=== PATIENT | male | born 1950 | race Caucasian/White ===

== ENCOUNTER → 2020-03-18 09:13 | Outpatient (BNVA) | payer MEDICARE, SELFPAY | PROVIDERS: PCP Family Medicine; Visit Provider Internal Medicine | DX: Z01.810 Encounter for preprocedural cardiovascular examination (principal); I48.0 Paroxysmal atrial fibrillation; I45.10 Unspecified right bundle-branch block; I77.810 Thoracic aortic ectasia | CPT/HCPCS: 93005; 99212 ==

== ENCOUNTER 2020-05-20 13:02 | Outpatient (REF) | payer MEDICARE, SELFPAY ==
[2020-05-20 14:39] LABS: MANUAL DIFF FLAG NO
[2020-05-20 14:45] LABS: Basophils Percent Auto 0.2 % (0-2); Eosinophils Absolute Auto 0.2 X10*3/uL (0.0-0.4); Eosinophils Percent Auto 3.1 % (0-4); Hematocrit 34.5 % (42-52); Hemoglobin 11.4 g/dl (14.0-18.0); Imm Gran Abs Auto 0.01 X10*3/uL (0.00-0.03); Imm Gran Pct Auto 0.2 % (0.0-0.4); Lymphocytes Absolute Auto 1.1 X10*3/uL (1.2-4.9); Lymphocytes Percent Auto 21.4 % (20-40); Mean Corpuscular Volume 84.8 fL (80-98); Mean Platelet Volume 8.8 fL (9.4-12.4); Monocytes Absolute Auto 0.4 X10*3/uL (0.1-1.2); Monocytes Percent Auto 7.8 % (2-11); Neutrophils Absolute Auto 3.3 X10*3/uL (2.0-8.3); Neutrophils Percent Auto 67.3 % (45-73); Platelet Count 370 X10*3/uL (160-400); Red Blood Count 4.07 X10*6/uL (4.60-5.80); Red Cell Distribution Width 11.9 % (11.0-16.0); White Blood Count 4.9 X10*3/uL (4.8-10.8)
[2020-05-20 15:16] LABS: Anion Gap 12 (12-20); Blood Urea Nitrogen 13 mg/dL (9-16); Carbon Dioxide 31 mmol/L (22-29); Chloride 99 mmol/L (96-108); Estimated Glomerular Filt Rate > 60; Potassium 4.4 mmol/L (3.3-5.1); Sodium 138 mmol/L (135-145)
== END 2020-05-20 13:03 | disposition home or self-care (01) ==
LOC: HO.LAB 13:02
PROVIDERS: Absent Provider Family Medicine; PCP Family Medicine; Visit Provider Internal Medicine
DX: I10 Essential (primary) hypertension (principal); D64.9 Anemia, unspecified; I48.91 Unspecified atrial fibrillation; I45.10 Unspecified right bundle-branch block; I48.0 Paroxysmal atrial fibrillation; I77.810 Thoracic aortic ectasia; I95.9 Hypotension, unspecified; Z79.899 Other long term (current) drug therapy
CPT/HCPCS: 36415; 80051; 82565; 84520; 85025; 93005; 99212

== ENCOUNTER → 2020-08-24 12:36 | Outpatient (BNVA) | payer MEDICARE, SELFPAY | PROVIDERS: PCP Family Medicine; Visit Provider Internal Medicine | DX: I48.0 Paroxysmal atrial fibrillation (principal); I45.10 Unspecified right bundle-branch block; I77.810 Thoracic aortic ectasia | CPT/HCPCS: 99212 ==

== ENCOUNTER 2020-11-01 12:51 | Outpatient (REF) | payer MEDICARE, SELFPAY ==
[2020-11-01 13:26] LABS: MANUAL DIFF FLAG NO
[2020-11-01 13:31] LABS: Basophils Percent Auto 0.4 % (0-2); Eosinophils Absolute Auto 0.2 X10*3/uL (0.0-0.4); Eosinophils Percent Auto 3.8 % (0-4); Hemoglobin 12.4 g/dl (14.0-18.0); Imm Gran Abs Auto 0.01 X10*3/uL (0.00-0.03); Imm Gran Pct Auto 0.2 % (0.0-0.4); Lymphocytes Absolute Auto 1.3 X10*3/uL (1.2-4.9); Lymphocytes Percent Auto 26.4 % (20-40); Mean Corpuscular HGB Conc 31.8 g/dl (31.0-36.0); Mean Corpuscular Hemoglobin 24.8 pg (27.0-33.0); Mean Platelet Volume 9.3 fL (9.4-12.4); Monocytes Absolute Auto 0.4 X10*3/uL (0.1-1.2); Neutrophils Absolute Auto 3.1 X10*3/uL (2.0-8.3); Neutrophils Percent Auto 61.2 % (45-73); Platelet Count 290 X10*3/uL (160-400); Red Cell Distribution Width 15.9 % (11.0-16.0)
[2020-11-01 13:58] LABS: Alanine Aminotransferase 14 U/L (0-40); Anion Gap 12 (12-20); Aspartate Amino Transferase 13 U/L (5-37); Blood Urea Nitrogen 21 mg/dL (9-16); Carbon Dioxide 26 mmol/L (22-29); Chloride 105 mmol/L (96-108); Estimated Glomerular Filt Rate > 60; Potassium 4.6 mmol/L (3.3-5.1); Sodium 138 mmol/L (135-145)
== END 2020-11-01 12:52 | disposition home or self-care (01) ==
LOC: HO.10HDL 12:51
PROVIDERS: PCP Family Medicine; Visit Provider Family Medicine
DX: I10 Essential (primary) hypertension (principal); K75.81 Nonalcoholic steatohepatitis (NASH); D72.819 Decreased white blood cell count, unspecified
CPT/HCPCS: 36415; 80051; 82565; 84450; 84460; 84520; 85025

== ENCOUNTER → 2021-02-16 12:32 | Outpatient (BNVA) | payer MEDICARE, SELFPAY | PROVIDERS: PCP Family Medicine; Visit Provider Internal Medicine | DX: I48.0 Paroxysmal atrial fibrillation (principal); I45.10 Unspecified right bundle-branch block; I77.810 Thoracic aortic ectasia | CPT/HCPCS: 99212 ==

== ENCOUNTER 2021-07-06 12:13 | Outpatient (REF) | payer MEDICARE, SELFPAY ==
[2021-07-06 13:11] LABS: Anion Gap 13 (12-20); Blood Urea Nitrogen 16 mg/dL (9-16); Carbon Dioxide 25 mmol/L (22-29); Chloride 103 mmol/L (96-108); Estimated Glomerular Filt Rate > 60; Potassium 4.1 mmol/L (3.3-5.1); Sodium 137 mmol/L (135-145)
== END 2021-07-06 12:14 | disposition home or self-care (01) ==
LOC: HO.10HDL 12:13
PROVIDERS: Visit Provider Family Medicine
DX: I10 Essential (primary) hypertension (principal)
CPT/HCPCS: 36415; 80051; 82565; 84520

== ENCOUNTER → 2021-08-24 14:07 | Outpatient (BNVA) | payer MEDICARE, SELFPAY | PROVIDERS: PCP Family Medicine; Referring Provider Family Medicine; Visit Provider Internal Medicine | DX: I48.0 Paroxysmal atrial fibrillation (principal); I45.10 Unspecified right bundle-branch block; I77.810 Thoracic aortic ectasia; Z79.01 Long term (current) use of anticoagulants; Z79.899 Other long term (current) drug therapy | CPT/HCPCS: 93005; 99212 ==

== ENCOUNTER 2022-02-23 09:42 | Outpatient (REF) | payer MEDICARE, SELFPAY ==
[2022-02-23 10:46] LABS: MANUAL DIFF FLAG NO
[2022-02-23 10:51] LABS: Basophils Percent Auto 0.3 % (0-2); Eosinophils Absolute Auto 0.2 X10*3/uL (0.0-0.4); Eosinophils Percent Auto 4.7 % (0-4); Hematocrit 36.9 % (42.0-52.0); Lymphocytes Absolute Auto 1.2 X10*3/uL (1.2-4.9); Lymphocytes Percent Auto 33.5 % (20-40); Mean Corpuscular HGB Conc 32.5 g/dl (31.0-36.0); Mean Corpuscular Hemoglobin 25.8 pg (27.0-33.0); Mean Corpuscular Volume 79.4 fL (80.0-98.0); Mean Platelet Volume 9.2 fL (9.4-12.4); Monocytes Absolute Auto 0.3 X10*3/uL (0.1-1.2); Neutrophils Absolute Auto 1.8 x10*3/uL (2.0-8.3); Neutrophils Percent Auto 52.5 % (45-73); Platelet Count 250 X10*3/uL (160-400); Red Blood Count 4.65 X10*6/uL (4.60-5.80); Red Cell Distribution Width 15.3 % (11.0-16.0); White Blood Count 3.4 X10*3/uL (4.8-10.8)
[2022-02-23 11:35] LABS: Alanine Aminotransferase 17 U/L (0-40); Albumin Level 4.1 g/dL (3.5-5.0); Alkaline Phosphatase 92 U/L (39-117); Anion Gap 11 (12-20); Aspartate Amino Transferase 14 U/L (5-37); Bilirubin Direct < 0.2 mg/dL (0.0-0.5); Blood Urea Nitrogen 18 mg/dL (9-16); Carbon Dioxide 27 mmol/L (22-29); Chloride 104 mmol/L (96-108); Estimated Glomerular Filt Rate > 60; Potassium 3.8 mmol/L (3.3-5.1); Sodium 138 mmol/L (135-145); Total Protein 6.7 g/dL (6.5-8.0)
[2022-02-23 11:49] LABS: Bilirubin Total 0.4 mg/dL (0.0-1.0)
[2022-02-23 16:31] LABS: Immature Retic Fraction 8.9 % (2.3-13.4); Retic HGB Equivalent 30.2 pg (30.0-35.0); Reticulocyte Percent 0.9 % (0.5-1.8); Reticulocytes Absolute 0.041 X10*6/uL (0.026-0.095)
[2022-02-23 16:59] LABS: Ferritin 21 ng/mL (20-250); Iron 46 mcg/dL (45-160); Percent Iron Saturation 12 % (15-50); Total Iron Binding Capacity 369 mcg/dL (228-428); Unsaturated Iron Binding 323 ug/dL
[2022-02-23 17:12] LABS: Folate 18.4 ng/mL (> or = 4.0); Vitamin B12 1398 pg/mL (200-900)
[2022-02-24 07:54] LABS: MANUAL DIFF FLAG NO
[2022-02-24 08:02] LABS: Basophils Percent Auto 0.5 % (0-2); Eosinophils Absolute Auto 0.2 X10*3/uL (0.0-0.4); Eosinophils Percent Auto 5.6 % (0-4); Hematocrit 39.3 % (42.0-52.0); Hemoglobin 12.3 g/dl (14.0-18.0); Imm Gran Abs Auto 0.01 X10*3/uL (0.00-0.03); Imm Gran Pct Auto 0.3 % (0.0-0.4); Lymphocytes Absolute Auto 1.3 X10*3/uL (1.2-4.9); Lymphocytes Percent Auto 33.5 % (20-40); Mean Corpuscular HGB Conc 31.3 g/dl (31.0-36.0); Mean Corpuscular Hemoglobin 25.7 pg (27.0-33.0); Mean Corpuscular Volume 82.2 fL (80.0-98.0); Mean Platelet Volume 9.5 fL (9.4-12.4); Monocytes Absolute Auto 0.4 X10*3/uL (0.1-1.2); Monocytes Percent Auto 9.7 % (2-11); Neutrophils Absolute Auto 1.9 x10*3/uL (2.0-8.3); Neutrophils Percent Auto 50.4 % (45-73); Platelet Count 267 X10*3/uL (160-400); Red Blood Count 4.78 X10*6/uL (4.60-5.80); Red Cell Distribution Width 15.5 % (11.0-16.0); White Blood Count 3.7 X10*3/uL (4.8-10.8)
== END 2022-02-23 09:43 | disposition home or self-care (01) ==
LOC: HO.10HDL 09:42
PROVIDERS: Absent Provider Internal Medicine; PCP Family Medicine; Visit Provider Family Medicine
DX: D64.9 Anemia, unspecified (principal); I10 Essential (primary) hypertension; K75.81 Nonalcoholic steatohepatitis (NASH); D72.819 Decreased white blood cell count, unspecified
CPT/HCPCS: 36415; 80051; 80076; 82565; 82607; 82728; 82746; 83540; 84520; 85025; 85045

== ENCOUNTER 2022-02-25 19:03 | Emergency (ER) | payer MEDICARE, SELFPAY ==
--- NOTE | ~2022-02-25 | CT_ITS ---
EXAMINATION: CT ABDOMEN AND PELVIS WITHOUT CONTRAST CLINICAL INFORMATION: Left flank pain. COMPARISON: Abdominal ultrasound 07/27/2014. CT abdomen 01/22/2009. TECHNIQUE: Multidetector volumetric imaging was performed from the superior aspect of the liver through the pubic symphysis. Sagittal and coronal reformatted images were obtained on the technologist's workstation. This CT examination was performed using dose optimization techniques as appropriate, variously including the following: *Automated exposure control *Adjustment of mA and/or kV according to patient size (this includes techniques or standardized protocols for targeted exams where dose is matched to indication/reason for exam; i.e. extremities or head) *Use of iterative reconstruction technique DLP: 754 mGy-cm FINDINGS: LUNG BASES: No focal consolidation or pleural effusion. LIVER, GALLBLADDER, AND BILIARY TREE: Simple water density cysts in the right hepatic lobe, and a too small to characterize hypodensity in the left hepatic lobe (3:19) that correlated with a previously seen cyst in 2008, now decreased in size. No new liver lesions. Normal gallbladder. No biliary ductal dilatation. PANCREAS: Fatty infiltration. No peripancreatic free fluid or fat stranding. SPLEEN: Limited noncontrast examination, unremarkable. ADRENAL GLANDS: Unchanged asymmetric fullness of the left adrenal gland without discrete nodularity. KIDNEYS AND URETERS: Limited noncontrast examination. No evidence of nephrolithiasis or hydronephrosis. No significant perinephric fat stranding. BLADDER: Unremarkable. GASTROINTESTINAL TRACT: The stomach and the small bowel are nondilated. The appendix is not definitely visualized, however there are no regional inflammatory changes to suspect acute appendicitis. There is extensive colonic diverticulosis without significant pericolonic inflammatory changes. No evidence of bowel obstruction. ABDOMINAL WALL: Bilateral fat-containing small inguinal hernias. There is fluid and mild soft tissue stranding in the posterior lower back, possibly representing dependent anasarca and decubitus changes. LYMPH NODES: Evaluation of the retroperitoneum is somewhat limited due to streak artifacts generated by extensive thoracolumbar hardware. No bulky lymphadenopathy is noted. VASCULAR: Limited noncontrast examination with scattered atherosclerotic disease. The abdominal aorta is of normal diameter. PELVIC VISCERA: Enlarged prostate measuring 6 cm transversely and 4.7 cm anterior to posterior. OSSEOUS STRUCTURES: Extensive hardware of the thoracolumbar spine and sacrum. Vertebroplasty cement at L1 and T12. No acute or aggressive appearing osseous abnormalities. CT/CT abdomen pelvis wo IV con IMPRESSION: 1. No evidence of nephrolithiasis or hydronephrosis. 2. Diverticulosis but no evidence of acute diverticulitis. 3. Prostatomegaly. 4. Fat stranding and fluid layering dependently in the posterior lower back, correlate with physical examination.
--- NOTE | ~2022-02-25 | XR_ITS ---
EXAMINATION: CHEST 2 VIEWS CLINICAL INFORMATION: ABD PAIN RADIATING TO BACK . COMPARISON: 07/30/2014. TECHNIQUE: PA and lateral views of the chest obtained. FINDINGS: The lungs are well expanded. No focal infiltrate, effusion, edema, or pneumothorax. Cardiac and mediastinal silhouettes are within normal limits for technique. No acute bony abnormality seen with extensive spinal pedicle screw and nga fixation throughout much of the thoracic and visualized lumbar spine. Hardware grossly appears to be intact. I do not appreciate any acute rib fractures XR/XR chest 2V IMPRESSION: Chronic appearing and postoperative changes but no acute superimposed airspace disease.
[2022-02-25 19:19] VITALS: BP 151/93; PULSE 77; RESP 18; TEMP 36.3; O2SAT 96; BMI 29.5
--- NOTE | 2022-02-25 19:21 | ECG_ITS ---
Test Reason : ABD PAIN Blood Pressure : / mmHG Vent. Rate : 061 BPM Atrial Rate : 061 BPM P-R Int : 168 ms QRS Dur : 144 ms QT Int : 448 ms P-R-T Axes : 041 -21 007 degrees QTc Int : 450 ms Normal sinus rhythm Right bundle branch block Abnormal ECG When compared with ECG of 30-JUL-2014 12:15, Vent. rate has decreased BY 42 BPM QT has shortened Referred By: Elida Pool Electronically Signed By:NAVNEET HANDLEY
--- NOTE | 2022-02-25 19:21 | ED.ABDPAIN ---
HPI - Abdominal Pain General Chief Complaint: Abdominal Pain <ZACHARY Pope - Last Filed: 02/25/22 19:27> Stated Complaint: Abdominal/Back Pain <ZACHARY Pope - Last Filed: 02/25/22 19:27> Time Seen by Provider: 02/26/22 04:44 <ZACHARY Pope - Last Filed: 02/25/22 19:27> Source: patient <Karen Schreiber MD - Last Filed: 02/26/22 04:58> Mode of arrival: ambulatory <Karen Schreiber MD - Last Filed: 02/26/22 04:58> Limitations: no limitations <Karen Schreiber MD - Last Filed: 02/26/22 04:58> History of Present Illness HPI narrative: Patient comes to emergency room complaining of 3 days of abdominal pain. Patient states that his abdomen started hurting a few hours after lifting multiple times of very heavy, rash sore. Patient denies nausea vomiting or diarrhea. No constipation although he takes oxycodone for chronic back pain. Patient denies fever chills. <Karen Schreiber MD - Last Filed: 02/26/22 04:58> Related Data Home Medications: Home Medications Medication Instructions Recorded Confirmed gabapentin 600 mg tablet See Rx Instructions PO .COMPLEX 03/18/20 08/24/21 lansoprazole 30 mg capsule,delayed 30 mg PO DAILY 03/18/20 08/24/21 release multivitamin 1 tab PO DAILY 03/18/20 08/24/21 omega-3 fatty acids 1,000 mg 1,000 mg PO DAILY 03/18/20 08/24/21 capsule (Fish Oil Concentrate) tamsulosin 0.4 mg capsule 0.4 mg PO BEDTIME 03/18/20 08/24/21 oxycodone 5 mg tablet mg PO 08/24/21 08/24/21 Previous Rx's Medication Instructions Recorded diltiazem HCl 240 mg 240 mg PO DAILY #90 caps 08/26/21 capsule,extended release 24 hr apixaban 5 mg tablet (Eliquis) 5 mg PO BID #60 tabs 11/24/21 <ZACHARY Pope - Last Filed: 02/25/22 19:27> Allergies/Adverse Reactions: Allergies Allergy/AdvReac Type Severity Reaction Status Date / Time almond Allergy Mild THROAT Verified 08/24/21 14:14 ITCHING sertraline AdvReac Severe unresponsiv Verified 08/24/21 14:14 e <ZACHARY Pope - Last Filed: 02/25/22 19:27> Review of Systems Review of Systems Constitutional : No Weight loss, No Fever, No Chills, No Night Sweats, No Fatigue, No Malaise ENT/Mouth : No Hearing loss, No Ear Pain, No Nasal Congestion, No Sinus Pain, No Hoarseness, No sore throat, No Rhinorrhea, No Swallowing Difficulty Eyes: No Eye Pain, No Swelling, No Redness, No Foreign Body, No Discharge, No Vision Changes Cardiovascular : No Chest Pain, No SOB, No Dyspnea on Exertion, No Orthopnea, No Edema, No Palpitations Respiratory : No Cough, No Sputum, No Wheezing, No Smoke Exposure, No Dyspnea Gastrointestinal : No Nausea, No Vomiting, No Diarrhea, No Constipation, complaining abdominal pain, bilateral lower quadrants Genitourinary : no irregular bleeding, No Dysuria, No Urinary Frequency, No Hematuria, No Urinary Incontinence, No Urgency, No Flank Pain, No Urinary Flow Changes, No Hesitancy Musculoskeletal : No joint pain, No Myalgias, No Joint Swelling Skin : No Skin Lesions, No rash Neuro : No Weakness, No Numbness, No Paresthesias, No Loss of Consciousness, No Dizziness, No Headache Psych : No Anxiety/Panic, No Depression, No SI/HI/AH/VH, No Social Issues, Heme/Lymph: No Bruising, No Bleeding,No Lymphadenopathy Endocrine : No Polyuria, No Polydipsia, No Temperature Intolerance <Karen Schreiber MD - Last Filed: 02/26/22 04:58> [facility] Past Medical History Medical History: Medical History Arterial hypotension Mild ascending aorta dilatation Paroxysmal atrial fibrillation Right bundle branch block <ZACHARY Pope - Last Filed: 02/25/22 19:27> Surgical History: Surgical History History of cardiac catheterization (~09/23/14) History of spinal fusion (~04/14/20) <ZACHARY Pope - Last Filed: 02/25/22 19:27> Family History Family History: Family History Father Pancreatic cancer Mother Alzheimer disease <ZACHARY Pope - Last Filed: 02/25/22 19:27> Social History Social History: Social History Alcohol intake: never Patient Tobacco Use Status: Former Tobacco user Quit Date: Smoked in Last 30 Days: No Use of substances other than those prescribed or required for medical reasons: No Advance Directives: No Advance Directives Information Provided: No <ZACHARY Pope - Last Filed: 02/25/22 19:27> Physical Exam ED Vital Signs: Vital Signs - 24 hr 02/25/22 19:19 02/26/22 03:47 Temperature 97.4 F 98.0 F Pulse Rate 77 79 Respiratory Rate 18 Blood Pressure 151/93 H 140/87 H Pulse Oximetry 96 97 Oxygen Delivery Method Room Air Room Air BMI result Body Mass Index 29.5 <ZACHARY Pope - Last Filed: 02/25/22 19:27> Vital Signs - 24 hr 02/25/22 19:19 02/26/22 03:47 Temperature 97.4 F 98.0 F Pulse Rate 77 79 Respiratory Rate 18 Blood Pressure 151/93 H 140/87 H Pulse Oximetry 96 97 Oxygen Delivery Method Room Air Room Air BMI result Body Mass Index 29.5 <Karen Schreiber MD - Last Filed: 02/26/22 04:58> Const Other: Appearance: Alert. Oriented X3. No acute distress. Eyes: Pupils equal, round and reactive to light. ENT: Pharynx normal. Neck: Normal inspection. Neck supple. No lymph nodes noted. No crepitus CVS: Normal heart rate and rhythm. Pulses normal. Normal S1 and S2 Respiratory: No respiratory distress. Breath sounds normal. No Wheezing. No rales Abdomen: Soft a, minimally tender to palpation. Skin: Skin warm and dry. Normal skin color. Normal skin turgor. Extremities: No lower extremity edema. No Lacerations. No Rash Neuro: Oriented X 3. No motor deficit. No sensory deficit. Moving all extremities. No slurred speech. CN 2 through 12 grossly intact Psych: calm, cooperative, normal affect <Karen Schreiber MD - Last Filed: 02/26/22 04:58> Course Course Course Narrative: LANCE- 71yoOriana presenting to the ED c c/o of diffuse abd pain radiating to back x 1 week. Reports had recent labs from PCP on 02/23/22 and then had more labs although he is unsure of the results on. Report mid sternal chest burning sensation. Reports his last bowel movement was this morning was a bit loose. Before having this bowel movement he had constipation x3 days and he took a laxative last night and work this morning. Also reports foul-smelling urine. Denies Fevers, sore throat, cough, sob, N/V/D, dysuria and hematuria or any other symptoms complaints or concerns at this time. When I reviewed the patient's outpatient labs on 02/23/2022 white blood cell count 3000. Mild anemia with an H&H of 12.0/36.9. Anion gap 11. BUN 18. Saturation percentage 12%. Vitamin B12 is 1398. otherwise all other labs were normal. Plan: Labs, CXR, EKG, UA, COVID/RSV/flu swab. Patient will be sent back to the waiting room to be evaluated in the ED. <ZACHARY Pope - Last Filed: 02/25/22 19:27> MARISOLE- 71yoM presenting to the ED c c/o of diffuse abd pain radiating to back x 1 week. Reports had recent labs from PCP on 02/23/22 and then had more labs although he is unsure of the results on. Report mid sternal chest burning sensation. Reports his last bowel movement was this morning was a bit loose. Before having this bowel movement he had constipation x3 days and he took a laxative last night and work this morning. Also reports foul-smelling urine. Denies Fevers, sore throat, cough, sob, N/V/D, dysuria and hematuria or any other symptoms complaints or concerns at this time. When I reviewed the patient's outpatient labs on 02/23/2022 white blood cell count 3000. Mild anemia with an H&H of 12.0/36.9. Anion gap 11. BUN 18. Saturation percentage 12%. Vitamin B12 is 1398. otherwise all other labs were normal. Plan: Labs, CXR, EKG, UA, COVID/RSV/flu swab. Patient will be sent back to the waiting room to be evaluated in the ED. I discussed the CT scan with the patient, no significant acute findings, labs within normal limits. Patient states that now he remembers that he had been lifting the heavy garage door multiple times a few hours prior from his abdominal pain starting. Patient states he has oxycodone at home, also Tylenol. <Karen Schreiber MD - Last Filed: 02/26/22 04:58> Medical Decision Making Lab Data Result Diagrams: : 02/25/22 19:39 02/25/22 19:39 <ZACHARY Pope - Last Filed: 02/25/22 19:27> Labs: Lab Results 02/25/22 02/25/22 02/25/22 Range/Units 19:39 19:39 19:39 WBC 4.3 L (4.8-10.8) X10*3/uL RBC 4.92 (4.60-5.80) X10*6/uL Hgb 12.9 L (14.0-18.0) g/dl Hct 39.5 L (42.0-52.0) % MCV 80.3 (80.0-98.0) fL MCH 26.2 L (27.0-33.0) pg MCHC 32.7 (31.0-36.0) g/dl RDW 15.0 (11.0-16.0) % Plt Count 267 (160-400) X10*3/uL MPV 8.9 L (9.4-12.4) fL Immature Gran % (Auto) 0.2 (0.0-0.4) % Neut % (Auto) 62.4 (45-73) % Lymph % (Auto) 24.5 (20-40) % Bradley % (Auto) 8.4 (2-11) % Eos % (Auto) 4.0 (0-4) % Baso % (Auto) 0.5 (0-2) % Lymph # (Auto) 1.1 L (1.2-4.9) X10*3/uL Bradley # (Auto) 0.4 (0.1-1.2) X10*3/uL Eos # (Auto) 0.2 (0.0-0.4) X10*3/uL Baso # (Auto) 0.0 (0.0-0.2) X10*3/uL Abs Immat Gran (auto) 0.01 (0.00-0.03) X10*3/uL Absolute Neuts (auto) 2.7 (2.0-8.3) x10*3/uL Absolute Nucleated RBC 0.000 (0.0-0.012) X10*3/uL Nucleated RBC % (auto) 0.0 (0.0-0.2) /100WBC PT 15.0 H (10.0-13.1) SEC INR 1.3 H (0.9-1.1) Sodium 139 (135-145) mmol/L Potassium 3.8 (3.3-5.1) mmol/L Chloride 104 (96-108) mmol/L Carbon Dioxide 26 (22-29) mmol/L Anion Gap 13 (12-20) BUN 12 (9-16) mg/dL Creatinine 0.94 (0.5-1.4) mg/dL Estim Creat Clear Calc 92.8 Estimated GFR > 60 Random Glucose 99 (60-115) mg/dL Calcium 9.2 (8.4-10.2) mg/dL Magnesium 2.1 (1.6-2.6) mg/dL Total Bilirubin 0.3 (0.0-1.0) mg/dL AST 19 (5-37) U/L ALT 16 (0-40) U/L Alkaline Phosphatase 96 (39-117) U/L Total Protein 7.0 (6.5-8.0) g/dL Albumin 4.2 (3.5-5.0) g/dL Lipase 26 (8-78) U/L Urine Color Urine Appearance Urine pH (5.0-9.0) Ur Specific [place] (1.005-1.025) Urine Protein (Neg-Trace) mg/dL Urine Glucose (UA) (Negative) mg/dL Urine Ketones (Negative) mg/dL Urine Blood (Negative) Urine Nitrite (Negative) Ur Leukocyte Esterase (Negative) Urine RBC (0-2) /HPF Urine WBC (0-5) /HPF Ur Squamous Epith Cells (0-2) /HPF Urine Bacteria (None Seen) Hyaline Casts (0-2) /LPF Influenza Type A (PCR) (Negative) Influenza Type B (PCR) (Negative) RSV RNA Qual (PCR) (Negative) SARS-CoV-2 RNA (RT-PCR) (Negative) 02/25/22 02/25/22 Range/Units 19:39 19:39 WBC (4.8-10.8) X10*3/uL RBC (4.60-5.80) X10*6/uL Hgb (14.0-18.0) g/dl Hct (42.0-52.0) % MCV (80.0-98.0) fL MCH (27.0-33.0) pg MCHC (31.0-36.0) g/dl RDW (11.0-16.0) % Plt Count (160-400) X10*3/uL MPV (9.4-12.4) fL Immature Gran % (Auto) (0.0-0.4) % Neut % (Auto) (45-73) % Lymph % (Auto) (20-40) % Bradley % (Auto) (2-11) % Eos % (Auto) (0-4) % Baso % (Auto) (0-2) % Lymph # (Auto) (1.2-4.9) X10*3/uL Bradley # (Auto) (0.1-1.2) X10*3/uL Eos # (Auto) (0.0-0.4) X10*3/uL Baso # (Auto) (0.0-0.2) X10*3/uL Abs Immat Gran (auto) (0.00-0.03) X10*3/uL Absolute Neuts (auto) (2.0-8.3) x10*3/uL Absolute Nucleated RBC (0.0-0.012) X10*3/uL Nucleated RBC % (auto) (0.0-0.2) /100WBC PT (10.0-13.1) SEC INR (0.9-1.1) Sodium (135-145) mmol/L Potassium (3.3-5.1) mmol/L Chloride (96-108) mmol/L Carbon Dioxide (22-29) mmol/L Anion Gap (12-20) BUN (9-16) mg/dL Creatinine (0.5-1.4) mg/dL Estim Creat Clear Calc Estimated GFR Random Glucose (60-115) mg/dL Calcium (8.4-10.2) mg/dL Magnesium (1.6-2.6) mg/dL Total Bilirubin (0.0-1.0) mg/dL AST (5-37) U/L ALT (0-40) U/L Alkaline Phosphatase (39-117) U/L Total Protein (6.5-8.0) g/dL Albumin (3.5-5.0) g/dL Lipase (8-78) U/L Urine Color Yellow Urine Appearance Clear Urine pH 5.5 (5.0-9.0) Ur Specific [place] 1.015 (1.005-1.025) Urine Protein Negative (Neg-Trace) mg/dL Urine Glucose (UA) Negative (Negative) mg/dL Urine Ketones Negative (Negative) mg/dL Urine Blood Trace H (Negative) Urine Nitrite Negative (Negative) Ur Leukocyte Esterase Negative (Negative) Urine RBC 3-5 H (0-2) /HPF Urine WBC 0-5 (0-5) /HPF Ur Squamous Epith Cells 0-2 (0-2) /HPF Urine Bacteria None Seen (None Seen) Hyaline Casts 0-2 (0-2) /LPF Influenza Type A (PCR) NEGATIVE (Negative) Influenza Type B (PCR) NEGATIVE (Negative) RSV RNA Qual (PCR) NEGATIVE (Negative) SARS-CoV-2 RNA (RT-PCR) NEGATIVE (Negative) <ZACHARY Pope - Last Filed: 02/25/22 19:27> Lab Results 02/25/22 02/25/22 02/25/22 Range/Units 19:39 19:39 19:39 WBC 4.3 L (4.8-10.8) X10*3/uL RBC 4.92 (4.60-5.80) X10*6/uL Hgb 12.9 L (14.0-18.0) g/dl Hct 39.5 L (42.0-52.0) % MCV 80.3 (80.0-98.0) fL MCH 26.2 L (27.0-33.0) pg MCHC 32.7 (31.0-36.0) g/dl RDW 15.0 (11.0-16.0) % Plt Count 267 (160-400) X10*3/uL MPV 8.9 L (9.4-12.4) fL Immature Gran % (Auto) 0.2 (0.0-0.4) % Neut % (Auto) 62.4 (45-73) % Lymph % (Auto) 24.5 (20-40) % Bradley % (Auto) 8.4 (2-11) % Eos % (Auto) 4.0 (0-4) % Baso % (Auto) 0.5 (0-2) % Lymph # (Auto) 1.1 L (1.2-4.9) X10*3/uL Bradley # (Auto) 0.4 (0.1-1.2) X10*3/uL Eos # (Auto) 0.2 (0.0-0.4) X10*3/uL Baso # (Auto) 0.0 (0.0-0.2) X10*3/uL Abs Immat Gran (auto) 0.01 (0.00-0.03) X10*3/uL Absolute Neuts (auto) 2.7 (2.0-8.3) x10*3/uL Absolute Nucleated RBC 0.000 (0.0-0.012) X10*3/uL Nucleated RBC % (auto) 0.0 (0.0-0.2) /100WBC PT 15.0 H (10.0-13.1) SEC INR 1.3 H (0.9-1.1) Sodium 139 (135-145) mmol/L Potassium 3.8 (3.3-5.1) mmol/L Chloride 104 (96-108) mmol/L Carbon Dioxide 26 (22-29) mmol/L Anion Gap 13 (12-20) BUN 12 (9-16) mg/dL Creatinine 0.94 (0.5-1.4) mg/dL Estim Creat Clear Calc 92.8 Estimated GFR > 60 Random Glucose 99 (60-115) mg/dL Calcium 9.2 (8.4-10.2) mg/dL Magnesium 2.1 (1.6-2.6) mg/dL Total Bilirubin 0.3 (0.0-1.0) mg/dL AST 19 (5-37) U/L ALT 16 (0-40) U/L Alkaline Phosphatase 96 (39-117) U/L Total Protein 7.0 (6.5-8.0) g/dL Albumin 4.2 (3.5-5.0) g/dL Lipase 26 (8-78) U/L Urine Color Urine Appearance Urine pH (5.0-9.0) Ur Specific [place] (1.005-1.025) Urine Protein (Neg-Trace) mg/dL Urine Glucose (UA) (Negative) mg/dL Urine Ketones (Negative) mg/dL Urine Blood (Negative) Urine Nitrite (Negative) Ur Leukocyte Esterase (Negative) Urine RBC (0-2) /HPF Urine WBC (0-5) /HPF Ur Squamous Epith Cells (0-2) /HPF Urine Bacteria (None Seen) Hyaline Casts (0-2) /LPF Influenza Type A (PCR) (Negative) Influenza Type B (PCR) (Negative) RSV RNA Qual (PCR) (Negative) SARS-CoV-2 RNA (RT-PCR) (Negative) 02/25/22 02/25/22 Range/Units 19:39 19:39 WBC (4.8-10.8) X10*3/uL RBC (4.60-5.80) X10*6/uL Hgb (14.0-18.0) g/dl Hct (42.0-52.0) % MCV (80.0-98.0) fL MCH (27.0-33.0) pg MCHC (31.0-36.0) g/dl RDW (11.0-16.0) % Plt Count (160-400) X10*3/uL MPV (9.4-12.4) fL Immature Gran % (Auto) (0.0-0.4) % Neut % (Auto) (45-73) % Lymph % (Auto) (20-40) % Bradley % (Auto) (2-11) % Eos % (Auto) (0-4) % Baso % (Auto) (0-2) % Lymph # (Auto) (1.2-4.9) X10*3/uL Bradley # (Auto) (0.1-1.2) X10*3/uL Eos # (Auto) (0.0-0.4) X10*3/uL Baso # (Auto) (0.0-0.2) X10*3/uL Abs Immat Gran (auto) (0.00-0.03) X10*3/uL Absolute Neuts (auto) (2.0-8.3) x10*3/uL Absolute Nucleated RBC (0.0-0.012) X10*3/uL Nucleated RBC % (auto) (0.0-0.2) /100WBC PT (10.0-13.1) SEC INR (0.9-1.1) Sodium (135-145) mmol/L Potassium (3.3-5.1) mmol/L Chloride (96-108) mmol/L Carbon Dioxide (22-29) mmol/L Anion Gap (12-20) BUN (9-16) mg/dL Creatinine (0.5-1.4) mg/dL Estim Creat Clear Calc Estimated GFR Random Glucose (60-115) mg/dL Calcium (8.4-10.2) mg/dL Magnesium (1.6-2.6) mg/dL Total Bilirubin (0.0-1.0) mg/dL AST (5-37) U/L ALT (0-40) U/L Alkaline Phosphatase (39-117) U/L Total Protein (6.5-8.0) g/dL Albumin (3.5-5.0) g/dL Lipase (8-78) U/L Urine Color Yellow Urine Appearance Clear Urine pH 5.5 (5.0-9.0) Ur Specific [place] 1.015 (1.005-1.025) Urine Protein Negative (Neg-Trace) mg/dL Urine Glucose (UA) Negative (Negative) mg/dL Urine Ketones Negative (Negative) mg/dL Urine Blood Trace H (Negative) Urine Nitrite Negative (Negative) Ur Leukocyte Esterase Negative (Negative) Urine RBC 3-5 H (0-2) /HPF Urine WBC 0-5 (0-5) /HPF Ur Squamous Epith Cells 0-2 (0-2) /HPF Urine Bacteria None Seen (None Seen) Hyaline Casts 0-2 (0-2) /LPF Influenza Type A (PCR) NEGATIVE (Negative) Influenza Type B (PCR) NEGATIVE (Negative) RSV RNA Qual (PCR) NEGATIVE (Negative) SARS-CoV-2 RNA (RT-PCR) NEGATIVE (Negative) <Karen Schreiber MD - Last Filed: 02/26/22 04:58> Independent Interpretation I performed an independent interpretation of an: EKG (Interpretation: Normal sinus rhythm, 61, a segment depression elevation, right bundle-branch block, QTC 450) <Karen Schreiber MD - Last Filed: 02/26/22 04:58> Radiology Impression Discussion of test interpretation with radiology: I have reviewed the radiologist's reading. <Karen Schreiber MD - Last Filed: 02/26/22 04:58> Radiologist Impression: FINDINGS: LUNG BASES: No focal consolidation or pleural effusion.? LIVER, GALLBLADDER, AND BILIARY TREE: Simple water density cysts in the right hepatic lobe, and a too small to characterize hypodensity in the left hepatic lobe (3:19) that correlated with a previously seen cyst in 2009, now decreased in size. No new liver lesions. Normal gallbladder. No biliary ductal dilatation. PANCREAS: Fatty infiltration. No peripancreatic free fluid or fat stranding.? SPLEEN: Limited noncontrast examination, unremarkable.? ADRENAL GLANDS: Unchanged asymmetric fullness of the left adrenal gland without discrete nodularity.? KIDNEYS AND URETERS: Limited noncontrast examination. No evidence of nephrolithiasis or hydronephrosis. No significant perinephric fat stranding.? BLADDER: Unremarkable.? GASTROINTESTINAL TRACT: The stomach and the small bowel are nondilated. The appendix is not definitely visualized, however there are no regional inflammatory changes to suspect acute appendicitis. There is extensive colonic diverticulosis without significant pericolonic inflammatory changes. No evidence of bowel obstruction.? ABDOMINAL WALL: Bilateral fat-containing small inguinal hernias. There is fluid and mild soft tissue stranding in the posterior lower back, possibly representing dependent anasarca and decubitus changes.? LYMPH NODES: Evaluation of the retroperitoneum is somewhat limited due to streak artifacts generated by extensive thoracolumbar hardware. No bulky lymphadenopathy is noted. VASCULAR: Limited noncontrast examination with scattered atherosclerotic disease. The abdominal aorta is of normal diameter. PELVIC VISCERA: Enlarged prostate measuring 6 cm transversely and 4.7 cm anterior to posterior.? OSSEOUS STRUCTURES: Extensive hardware of the thoracolumbar spine and sacrum. Vertebroplasty cement at L1 and T12. No acute or aggressive appearing osseous abnormalities.? CT/CT abdomen pelvis wo IV con IMPRESSION: 1.? No evidence of nephrolithiasis or hydronephrosis. 2.? Diverticulosis but no evidence of acute diverticulitis. 3.? Prostatomegaly. 4.? Fat stranding and fluid layering dependently in the posterior lower back, correlate with physical examination. <Karen Schreiber MD - Last Filed: 02/26/22 04:58> Discharge Plan Discharge Clinical Impression: Abdominal pain <ZACHARY Pope - Last Filed: 02/25/22 19:27> Patient Disposition: Home, Self-Care <ZACHARY Pope - Last Filed: 02/25/22 19:27> Instructions: Abdominal Pain (ED) <ZACHARY Pope - Last Filed: 02/25/22 19:27> Additional Instructions: Please follow-up with your primary care physician tomorrow. If you have any worsening or new symptoms, please return to the emergency room or call 911 <ZACHARY Pope - Last Filed: 02/25/22 19:27> Prescriptions: No Action diltiazem HCl 240 mg capsule,extended release 24hr 240 mg PO DAILY Qty: 90 3RF Eliquis 5 mg tablet 5 mg PO BID Qty: 60 5RF tamsulosin 0.4 mg capsule 0.4 mg PO BEDTIME lansoprazole 30 mg capsule,delayed release(DR/EC) 30 mg PO DAILY gabapentin 600 mg tablet See Rx Instructions PO .COMPLEX Rx Instructions: 1/2 tablet in the morning, 1 tablet at bedtime PO; multivitamin Tablet 1 tab PO DAILY omega-3 fatty acids [Fish Oil Concentrate] 1,000 mg capsule 1,000 mg PO DAILY oxycodone 5 mg tablet PO <ZACHARY Pope - Last Filed: 02/25/22 19:27>
[2022-02-25 19:47] LABS: MANUAL DIFF FLAG NO
[2022-02-25 19:53] LABS: Appearance Urine Clear; Color Urine Yellow; Glucose Urine UA Negative (Negative); Leukocyte Esterase Urine Negative (Negative); Nitrite Urine Negative (Negative); PH 5.5 (5.0-9.0); Specific Gravity - Urine 1.015 (1.005-1.025); UMIC TRIGGER UACC YES; Urine Blood Trace (Negative); Urine Ketones Negative (Negative); Urine Protein Negative (Neg-Trace)
[2022-02-25 19:54] LABS: INTERNATIONAL NORM RATIO 1.3 (0.9-1.1)
[2022-02-25 19:55] LABS: Basophils Percent Auto 0.5 % (0-2); Eosinophils Absolute Auto 0.2 X10*3/uL (0.0-0.4); Hematocrit 39.5 % (42.0-52.0); Hemoglobin 12.9 g/dl (14.0-18.0); Imm Gran Abs Auto 0.01 X10*3/uL (0.00-0.03); Imm Gran Pct Auto 0.2 % (0.0-0.4); Lymphocytes Absolute Auto 1.1 X10*3/uL (1.2-4.9); Lymphocytes Percent Auto 24.5 % (20-40); Mean Corpuscular HGB Conc 32.7 g/dl (31.0-36.0); Mean Corpuscular Hemoglobin 26.2 pg (27.0-33.0); Mean Corpuscular Volume 80.3 fL (80.0-98.0); Mean Platelet Volume 8.9 fL (9.4-12.4); Monocytes Absolute Auto 0.4 X10*3/uL (0.1-1.2); Monocytes Percent Auto 8.4 % (2-11); Neutrophils Absolute Auto 2.7 x10*3/uL (2.0-8.3); Neutrophils Percent Auto 62.4 % (45-73); Platelet Count 267 X10*3/uL (160-400); Red Blood Count 4.92 X10*6/uL (4.60-5.80); White Blood Count 4.3 X10*3/uL (4.8-10.8)
[2022-02-25 20:16] LABS: Alanine Aminotransferase 16 U/L (0-40); Albumin Level 4.2 g/dL (3.5-5.0); Alkaline Phosphatase 96 U/L (39-117); Anion Gap 13 (12-20); Aspartate Amino Transferase 19 U/L (5-37); Bilirubin Total 0.3 mg/dL (0.0-1.0); Blood Urea Nitrogen 12 mg/dL (9-16); Calcium 9.2 mg/dL (8.4-10.2); Carbon Dioxide 26 mmol/L (22-29); Chloride 104 mmol/L (96-108); Creatinine Clr Calc Pharmacy 92.8; Estimated Glomerular Filt Rate > 60; Glucose Random 99 mg/dL (60-115); Lipase 26 U/L (8-78); Magnesium 2.1 mg/dL (1.6-2.6); Potassium 3.8 mmol/L (3.3-5.1); Sodium 139 mmol/L (135-145)
[2022-02-25 20:33] LABS: Influenza A PCR NEGATIVE (Negative); Influenza B PCR NEGATIVE (Negative); Resp Syncy Virus RNA Qual PCR NEGATIVE (Negative); SARS COV2 PCR INHOUSE NEGATIVE (Negative)
[2022-02-25 20:47] LABS: Bacteria Urine None Seen (None Seen); Hyaline Casts Urine 0-2 /LPF (0-2); Squamous Epithelial Cell Urine 0-2 /HPF (0-2); WBC Urine 0-5 /HPF (0-5)
[2022-02-26 03:47] VITALS: BP 140/87; PULSE 79; TEMP 36.7; O2SAT 97
== END 2022-02-26 05:16 | disposition home or self-care (01) ==
PROVIDERS: Physician Assistant Medical; Emergency Provider Emergency Medicine; PCP Psychiatry & Neurology Psychiatry
DX: R10.9 Unspecified abdominal pain (principal); Z20.822 Contact with and (suspected) exposure to COVID-19; I48.0 Paroxysmal atrial fibrillation; G89.29 Other chronic pain; M54.50 Low back pain, unspecified; Z79.891 Long term (current) use of opiate analgesic; Z79.01 Long term (current) use of anticoagulants; Z79.899 Other long term (current) drug therapy
CPT/HCPCS: 0241U; 36415; 71046; 74176; 80053; 81001; 81003; 83690; 83735; 85025; 85610; 93005; 99284

== ENCOUNTER → 2022-04-17 09:19 | Outpatient (BNVA) | payer MEDICARE, SELFPAY | PROVIDERS: PCP Psychiatry & Neurology Psychiatry; Visit Provider Internal Medicine | DX: M96.1 Postlaminectomy syndrome, not elsewhere classified (principal); Z98.1 Arthrodesis status | CPT/HCPCS: 99202 ==

== ENCOUNTER 2022-05-10 05:50 | Outpatient (REF) | payer MEDICARE, SELFPAY ==
--- NOTE | ~2022-05-10 | FL_ITS ---
EXAMINATION: XR FLUOROSCOPY WITH IMAGES CLINICAL INFORMATION: Z98.1 - Arthrodesis status COMPARISON: Chest radiographs 02/25/2022 TECHNIQUE: Fluoroscopy Supervised By: Dr. Josue Ramirez. Fluoroscopy Time: 0.2 minutes. Cumulative Dose: 4.31 mGy. DAP: 0.720 Gycm2. Images: 3. FINDINGS: There are old post surgical changes again seen with bilateral rodding and density from cement. There are 4 fine needles overlying the upper thoracic spine. FL/FL guidance in treatment room IMPRESSION: Fluoroscopy for pain management procedures.
== END 2022-05-10 05:51 | disposition home or self-care (01) ==
LOC: CF 05:50
PROVIDERS: Visit Provider Internal Medicine
DX: M47.814 Spondylosis without myelopathy or radiculopathy, thoracic region (principal); G89.29 Other chronic pain; Z98.1 Arthrodesis status; Z79.899 Other long term (current) drug therapy
CPT/HCPCS: 64490; 64491; J1100; J2795

== ENCOUNTER → 2022-05-12 08:48 | Outpatient (BNVA) | payer MEDICARE, SELFPAY | PROVIDERS: PCP Psychiatry & Neurology Psychiatry; Visit Provider Internal Medicine | DX: M54.6 Pain in thoracic spine (principal); G89.29 Other chronic pain; Z98.1 Arthrodesis status | CPT/HCPCS: Q3014 ==

== ENCOUNTER → 2022-07-27 14:20 | Outpatient (BNVA) | payer MEDICARE, SELFPAY | PROVIDERS: PCP Family Medicine; Referring Provider Family Medicine; Visit Provider Surgery | DX: K40.90 Unilateral inguinal hernia, without obstruction or gangrene, not specified as recurrent (principal) | CPT/HCPCS: 99202 ==

== ENCOUNTER → 2022-08-14 08:38 | Outpatient (REF) | payer MEDICARE, SELFPAY ==
--- NOTE | 2022-08-14 08:42 | CA_ITS ---
Transthoracic Echocardiogram Patient (Last, First, Middle): William Sanon G Gender: Male Date of : 1950 Age: 71 Procedure Date: 08/14/2022 Procedure Type: Transthoracic Echocardiogram Location: OP Height: 190.5 cm Weight: 108.86 kg BSA: 2.37 m2 Heart Rate: bpm BP: 130 / 86 mmHg Fire Supervisor: MERY Referring MD: Kyler Mata MD Symptoms: I77.810 - Thoracic aortic ectasia Study Quality: Adequate with contrast ECG Rhythm: Sinus Conclusions: - The left ventricular systolic function is normal. The calculated ejection fraction is 63% by biplane method. - No obvious valvular pathology seen on this study. - There is mild dilatation of the sinuses of Valsalva measuring 4.43 cm and mild dilatation of the ascending aorta measuring 4.50 cm. Findings Procedure Information Contrast agent, definity, is being given per protocol without apparent complications. Left Ventricle Normal left ventricular cavity size. There is mildly increased left ventricular wall thickness. The left ventricular systolic function is normal. The calculated ejection fraction is 63% by biplane method. There is no evidence of regional wall motion abnormalities. Diastolic function is normal for age. Right Ventricle Mildly increased right ventricular cavity size. There is normal right ventricular systolic function. Atria Mild biatrial enlargement. Aortic Valve There is a normal trileaflet aortic valve. There is no aortic valve stenosis. Trace to mild regurgitation. Mitral Valve The mitral valve appears normal. There is trace mitral valve regurgitation. There is no mitral valve stenosis. Pulmonic Valve The pulmonic valve is likely normal. Tricuspid Valve There is trace tricuspid valve regurgitation. There is no evidence of pulmonary hypertension. Great Vessels There is mild dilatation of the sinuses of Valsalva measuring 4.43 cm and mild dilatation of the ascending aorta measuring 4.50 cm. Venous The inferior vena cava is normal in size and collapses greater than 50% with inspiration. Pericardium/Pleural There is no evidence of pericardial effusion. Prior Study Comparison Changes noted compared to prior study dated: 04/02/2019. Increase in ascending aortic size. Recommendations, Care & Conclusions No obvious valvular pathology seen on this study. Measurements 2D Linear Measurements IVSd: 1.22 0.6-0.9/0.6-1.0 cm LVIDd: 5.16 3.9-5.3/4.2-5.9 cm LVIDd Index: 2.18 2.4-3.2/2.2-3.1 cm/m2 LVIDs: 3.46 2.0-3.6 cm LVPWd: 1.13 0.7-1.1 cm LA Diam: 2.90 2.7-3.8/3.0-4.0 cm LAIDs Index: 1.22 1.5-2.3 cm/m2 LV Mass: 297.62 67-162/88-224 g LV Mass Index: 125.58 43-95/49-115 g/m2 LVOT Diam: 2.60 3.0+(-)1.3 cm 2D Systolic Function EF 4C: 65.10 >55% EF 2C: 60.90 >55% EF BiP: 62.70 >55% Mitral Valve MV Pk E: 0.62 MV PK A: 0.78 MV Decel Time: 331.00 E/A: 0.80 E'Lateral: 8.70 E'Medial: 5.98 E/E' Med: 10.40 E/E' Lat: 7.10 PHT: 97.00 MVA PHT: 2.27 Decel [place]: 1.88 Aortic Valve AoV Pk Andre: 1.53 AoV Mn Andre: 1.11 AoV VTI: 0.30 AoV Pk Grad: 9.00 Aov Mn Grad: 5.00 JOHANNY Cont.VTI: 4.33 LVOT LVOT Pk Andre: 1.15 LVOT Mn Andre: 0.71 LVOT VTI: 0.24 LVOT Pk Grad: 5.00 LVOT Mn Grad: 2.00 LVOT Diam: 2.60 LVOT Area: 5.31 Diastolic Function MV Pk E: 0.62 MV Pk A: 0.78 E/A: 0.80 E'Medial: 5.98 E/E' Med: 10.40 E' Laterial: 8.70 E/E' Lat: 7.10 Right Ventricle TAPSE (mm): 30.00 TVS' Andre: 17.70 Tricuspid Valve TR Pk Andre: 2.35 TR Pk Grad: 22.00 RA Press: 3.00 RVSP: 25.00 Great Vessels Aorta Sinus of Valsalva: 4.43 2.0-3.[address] [place]: 3.25 1.7-3.4 cm Ao Asc: 4.50 2.1-3.4 cm Updated in Other Vendor System with Status of Final Kyler Mata MD electronically signed on 08/14/2022 10:18:39 AM with status of Final
== END ==
LOC: HO.CARD 08:38
PROVIDERS: PCP Family Medicine; Visit Provider Internal Medicine
DX: I77.810 Thoracic aortic ectasia (principal)
CPT/HCPCS: 93306; Q9957

== ENCOUNTER 2022-08-16 05:55 | Day surgery (SDC) | payer MEDICARE, SELFPAY ==
[2022-08-09 10:52] VITALS: BMI 29.4
--- NOTE | 2022-08-15 09:14 | HO.ANESPROP2 ---
Documented by User: Breanne Romero NP 08/15/22 09:19 HPI - Anesthesia Eval Consult details Narrative: 71yo M for Right Hernia Repair Inguinal with mesh Eliquis for afib/DVT/PE Stable at yearly [facility] [place] cardiology visit 08/2021 [facility] Active Problems Active Problems: All Active Problems (Updated 08/09/22 @ 10:35 by Radha De Dios RN) Preoperative cardiovascular examination (Acute) Status post laminectomy with spinal fusion (Acute) Chronic thoracic spine pain (Acute) Right inguinal hernia (Acute) Arterial hypotension (Acute) Mild ascending aorta dilatation (Acute) Right bundle branch block (Acute) Paroxysmal atrial fibrillation (Acute) Past Medical History Medical History (Updated 08/09/22 @ 10:35 by Radha De Dios RN) Arterial hypotension Arthritis Back pain DVT (deep venous thrombosis) Elevated cholesterol GERD (gastroesophageal reflux disease) HTN (hypertension) Hx of skin cancer, basal cell Mild ascending aorta dilatation Paroxysmal atrial fibrillation Pulmonary embolism Right bundle branch block Family History Family History Father Pancreatic cancer Mother Alzheimer disease Surgical History Surgical History (Updated 08/09/22 @ 10:43 by Radha De Dios RN) History of cardiac catheterization (~09/23/14) History of left knee replacement History of revision of total knee arthroplasty History of spinal fusion (~04/14/20) History of tonsillectomy History of total knee arthroplasty History of umbilical hernia repair (03/13/17) Social History Social History Are you a primary health care marketing manager to a significant other at home: No Do you presently have visiting nurse or other home services: No Alcohol intake: never Patient Tobacco Use Status: Former Tobacco user Quit Date: Meds Allergies Allergy/AdvReac Type Severity Reaction Status Date / Time almond Allergy Mild THROAT Verified 07/27/22 14:41 ITCHING sertraline AdvReac Severe unresponsiv Verified 07/27/22 14:41 e Home Medications Medication Instructions Recorded Confirmed Last Taken Type lansoprazole 30 mg capsule,delayed 30 mg PO DAILY 03/18/20 08/09/22 08/16/22 History release multivitamin 1 tab PO DAILY 03/18/20 08/09/22 Unknown History tamsulosin 0.4 mg capsule 0.4 mg PO BEDTIME 03/18/20 08/09/22 Unknown History magbhqr-xaqakgkkpwkzm-ohozsytc 250 1 tab PO Q4-6H PRN Headache 04/17/22 08/09/22 Unknown History mg-250 mg-65 mg tablet (Excedrin Migraine) gabapentin 300 mg capsule 300 mg PO DAILY 04/17/22 08/09/22 08/16/22 History gabapentin 600 mg tablet 600 mg PO BEDTIME 04/17/22 08/09/22 Unknown History oxycodone 5 mg tablet 5 mg PO Q8H PRN Back Pain 04/17/22 08/09/22 Unknown History cyclobenzaprine 10 mg tablet 10 mg PO BEDTIME 07/27/22 08/09/22 Unknown History finasteride 5 mg tablet 5 mg PO QAM 08/09/22 08/09/22 Unknown History magnesium oxide 400 mg PO DAILY 08/09/22 08/09/22 Unknown History wheat dextrin 3 gram/4 gram oral 1 packet PO DAILY 08/09/22 08/09/22 Unknown History powder (Benefiber Sugar Free (dextrin)) Exam Exam Date and Time: August 15, 2022 0914 Height,Weight and Vital Signs: Height 6 ft 3 in Weight 106.594 kg Pertinent Lab Results Pertinent Lab Results: Laboratory Tests 02/25/22 02/25/22 19:39 19:39 WBC 4.3 L Hgb 12.9 L Hct 39.5 L Plt Count 267 Sodium 139 Potassium 3.8 Chloride 104 Carbon Dioxide 26 BUN 12 Creatinine 0.94 Narrative Narrative: ECHO 08/2022 Conclusions: - The left ventricular systolic function is normal.? The ? calculated ejection fraction is 63% by biplane method. ? - No obvious valvular pathology seen on this study.? - There is mild dilatation of the sinuses of Valsalva measuring? 4.43 cm and mild dilatation of the ascending aorta measuring 4.50 cm.? EKG 02/2022 Vent. Rate : 061 BPM ? ? Atrial Rate : 061 BPM ?? P-R Int : 168 ms? QRS Dur : 144 ms ? ? QT Int : 448 ms ? ? ? P-R-T Axes : 041 -21 007 degrees ?? QTc Int : 450 ms ? Normal sinus rhythm Right bundle branch block Abnormal ECG When compared with ECG of 30-JUL-2014 12:15, Vent. rate has decreased BY? 42 BPM QT has shortened Assessment and Plan Assessment Anesthesia Assessment: Chart Reviewed Documented by User: Rosendo Huerta MD 08/16/22 17:30 HPI - Anesthesia Eval Consult details Narrative: 71yo M for Right Hernia Repair Inguinal with mesh Eliquis for afib/DVT/PE eliquis held as per cardiology Stable at yearly [facility] [place] cardiology visit 08/2021 [facility] Past Medical History Medical History (Updated 08/09/22 @ 10:35 by Radha De Dios RN) Arterial hypotension Arthritis Back pain DVT (deep venous thrombosis) Elevated cholesterol GERD (gastroesophageal reflux disease) HTN (hypertension) Hx of skin cancer, basal cell Mild ascending aorta dilatation Paroxysmal atrial fibrillation Pulmonary embolism Right bundle branch block Functional capacity: independent ambulation Family History Family History Father Pancreatic cancer Mother Alzheimer disease Family history of problems with anesthesia: No Surgical History Surgical History (Updated 08/09/22 @ 10:43 by Radha De Dios RN) History of cardiac catheterization (~09/23/14) History of left knee replacement History of revision of total knee arthroplasty History of spinal fusion (~04/14/20) History of tonsillectomy History of total knee arthroplasty History of umbilical hernia repair (03/13/17) History of Problems with Anesthesia: No Social History Social History Are you a primary health care marketing manager to a significant other at home: No Do you presently have visiting nurse or other home services: No Alcohol intake: never Patient Tobacco Use Status: Former Tobacco user Quit Date: Meds Allergies Allergy/AdvReac Type Severity Reaction Status Date / Time almond Allergy Mild THROAT Verified 07/27/22 14:41 ITCHING sertraline AdvReac Severe unresponsiv Verified 07/27/22 14:41 e Home Medications Medication Instructions Recorded Confirmed Last Taken Type lansoprazole 30 mg capsule,delayed 30 mg PO DAILY 03/18/20 08/09/22 08/16/22 History release multivitamin 1 tab PO DAILY 03/18/20 08/09/22 Unknown History tamsulosin 0.4 mg capsule 0.4 mg PO BEDTIME 03/18/20 08/09/22 Unknown History dfhashq-mvwugrktducul-dwiayluo 250 1 tab PO Q4-6H PRN Headache 04/17/22 08/09/22 Unknown History mg-250 mg-65 mg tablet (Excedrin Migraine) gabapentin 300 mg capsule 300 mg PO DAILY 04/17/22 08/09/22 08/16/22 History gabapentin 600 mg tablet 600 mg PO BEDTIME 04/17/22 08/09/22 Unknown History oxycodone 5 mg tablet 5 mg PO Q8H PRN Back Pain 04/17/22 08/09/22 Unknown History cyclobenzaprine 10 mg tablet 10 mg PO BEDTIME 07/27/22 08/09/22 Unknown History finasteride 5 mg tablet 5 mg PO QAM 08/09/22 08/09/22 Unknown History magnesium oxide 400 mg PO DAILY 08/09/22 08/09/22 Unknown History wheat dextrin 3 gram/4 gram oral 1 packet PO DAILY 08/09/22 08/09/22 Unknown History powder (Benefiber Sugar Free (dextrin)) Exam Airway Mallampati Class: IV TM Dist: >3cm Neck ROM: Full Loose/Missing/Broken Teeth: Yes (poor dentition overall ) Assessment and Plan Assessment Anesthesia Assessment: Anesthesia Plan Discussed Final Anesthetic Review Family History of Problems with Anesthesia: No History of Problems with Anesthesia: No NPO: Yes ASA Class: III Final Preanesthetic Review: Meds/Allgs Chart Reviewed, Consent Obtained/Reviewed and Anes Risks/Benef Reviewed Patient Risk: Intermediate Procedure Risk: Intermediate Anesthetic Plan Anesthetic Plan: GA Disposition: Standard PACU
[2022-08-16] VITALS (10 sets, daily range): BP systolic 108–139; BP diastolic 67–86; PULSE 72–91; RESP 16; TEMP 36.2–36.7; O2SAT 95–98
--- NOTE | 2022-08-16 07:26 | MHC.SHP ---
Pre-Procedural Eval Section A Date of Service: 08/16/22 The patient is an INPATIENT: No Changes since office visit: Yes Patient answered all questions; No Cold of Flu in the past 2 weeks, No New Medical Problems and No Changes in Medication The History & Physical has been completed within 30 days and I have reviewed it.: Yes Section B Chief Complaint: Unilateral inguinal hernia, without obstruction or Allergies: Allergies Allergy/AdvReac Type Severity Reaction Status Date / Time almond Allergy Mild THROAT Verified 07/27/22 14:41 ITCHING sertraline AdvReac Severe unresponsiv Verified 07/27/22 14:41 e Review of Systems Sugical H&P ROS: Negative: Constitution, Respiratory, Neurological, Psychiatric, Hem-Onc, Allergic/Immunologic, Gastrointestinal, Genitourinary, Musculoskeletal, Integumentary, Endocrine and Eyes/Ears/Nose/Throat and Yes, Specify: Cardiovascular (on Eliquis for PAF) Exam Surgical H&P Exam: Normal: HEENT, Normal: Heart, Normal: Lungs, Normal: Extremities, Normal: Skin and Normal: Neurological and Significant Findings: Abdomen (RIH reduced) Plan Diagnosis/Plan: Unchanged I have reviewed the history and physical and performed a pertinent physical examination on my patient. No changes have occurred unless specified. Time Spent With Patient Time: Total time managing care of this patient today ____ minutes.
--- NOTE | 2022-08-16 07:39 | P.OP_ITS ---
Operative Note Operative Note Date of Service: 08/16/22 Narrative: Preoperative diagnosis: Right inguinal hernia Postoperative diagnosis:same Procedure:Repair of Right inguinal hernia with mesh Surgeon: Bola Hansen MD Secondary History Teacher: Marcela Nobles PA-C Anesthesia: General LMA Indications for procedure: 71 year old male patient with a palpable lump in the right groin which increases with lifting and coughing and reduces in the supine position. On examination, he is found to have a large reducible right inguinal hernia Operative findings: Indirect right inguinal hernia without evidence of incarceration or strangulation. Specimen: Hernia sac right inguinal hernia Estimated blood loss: 2 mL Complications: None Procedure details: Patient was brought to the OR placed in a supine position. After administering general anesthesia patient's abdomen was prepped with ChloraPrep and draped in a sterile fashion. A surgical time-out was called and the informed consent confirmed. Patient received preoperative antibiotics and Venodyne boots were in place. Local anesthesia consisting of 0.5% Sensorcaine with epinephrine infiltrated over the right inguinal ligament. Incision was then made with a scalpel carried out through subcutaneous tissue, past Franklyn's fascia, and up to the external oblique aponeurosis. This palpable in wide with the Metzenbaum scissors. The spermatic cord was then dissected free from the surrounding inguinal canal and retracted using a [place] drain. Floor of the inguinal canal was found to be intact without direct hernia. Fibers of the cremaster muscle were then . A lipoma was noted lateral to the spermatic cord and dissected down to the internal ring. A hernia sac was then identified the into the spermatic cord. This was then dissected down to the internal ring. The sac was opened and the contents reduced. A 0 Polysorb suture was then placed at the base of the hernia sac. This was then ligated sent as a specimen. The preperitoneal space was then dissected at the internal ring using an open Ray-Lalita sponge. A large extended PHS mesh was then obtained. The circular underlay was deployed into the preperitoneal space. The overlay was then secured to the pubic tubercle, conjoined tendon, and shelving edge of the inguinal ligament using 0 Polysorb sutures. A slit was made in the mesh the mesh wrapped around the inguinal ligament using the 0 Polysorb suture. This was then secured to the shelving edge using the 0 Polysorb suture. The internal ring was tight enough to allow the passage of the tip of the index finger. Wounds were then irrigated and suctioned dry. Wounds were checked for he mostasis. External oblique aponeurosis was then reapproximated using a running 2 0 Polysorb suture. 6 mL of Zenrelef was then instilled below the fascia. Franklyn's fascia and dermis were then reapproximated using interrupted 3-0 Polysorb sutures. Skin was closed using a running subcuticular 4-0 Polysorb suture. Steri-Strips, 2 x 2 gauze and Tegaderm were then applied. The patient tolerated the procedure well. Sponge, instrument, and needle counts reported as correct. The patient was transferred to PACU in stable condition.
[2022-08-16] MEDS: Acetaminophen 1,000 MG/100 ML PIGGYBACK 400 MG IV (09:23)
[2022-08-16] MEDS: oxyCODONE HCl Immed Release 5 MG TABLET PO (09:23)
== END 2022-08-16 10:55 | disposition home or self-care (01) ==
PROVIDERS: PCP Family Medicine; Visit Provider Surgery
PROC: (CPT 49505; principal; 2022-08-16 07:30)
DX: K40.90 Unilateral inguinal hernia, without obstruction or gangrene, not specified as recurrent (principal); D17.5 Benign lipomatous neoplasm of intra-abdominal organs; I95.9 Hypotension, unspecified; I48.0 Paroxysmal atrial fibrillation; I77.819 Aortic ectasia, unspecified site; I45.10 Unspecified right bundle-branch block; Z79.01 Long term (current) use of anticoagulants; Z79.82 Long term (current) use of aspirin; Z79.899 Other long term (current) drug therapy; Z88.8 Allergy status to other drugs, medicaments and biological substances; Z98.890 Other specified postprocedural states; Z87.891 Personal history of nicotine dependence
CPT/HCPCS: 49505; 88302; C1781; C9088; J0131; J0690; J1100; J2250; J2370; J2405; J3010

== ENCOUNTER 2022-09-05 12:36 | Outpatient (REF) | payer MEDICARE, SELFPAY ==
[2022-09-05 13:36] LABS: MANUAL DIFF FLAG NO
[2022-09-05 13:41] LABS: Basophils Percent Auto 0.6 % (0-2); Eosinophils Absolute Auto 0.2 X10*3/uL (0.0-0.4); Eosinophils Percent Auto 4.4 % (0-4); Hematocrit 34.3 % (42.0-52.0); Hemoglobin 11.3 g/dl (14.0-18.0); Imm Gran Abs Auto 0.01 X10*3/uL (0.00-0.03); Imm Gran Pct Auto 0.3 % (0.0-0.4); Lymphocytes Absolute Auto 1.1 X10*3/uL (1.2-4.9); Lymphocytes Percent Auto 29.6 % (20-40); Mean Corpuscular HGB Conc 32.9 g/dl (31.0-36.0); Mean Corpuscular Hemoglobin 26.3 pg (27.0-33.0); Mean Corpuscular Volume 79.8 fL (80.0-98.0); Mean Platelet Volume 8.9 fL (9.4-12.4); Monocytes Absolute Auto 0.4 X10*3/uL (0.1-1.2); Neutrophils Percent Auto 55.1 % (45-73); Platelet Count 354 X10*3/uL (160-400); Red Cell Distribution Width 15.3 % (11.0-16.0); White Blood Count 3.6 X10*3/uL (4.8-10.8)
[2022-09-05 15:27] LABS: Anion Gap 15 (12-20); Blood Urea Nitrogen 20 mg/dL (9-16); Carbon Dioxide 23 mmol/L (22-29); Chloride 106 mmol/L (96-108); Estimated Glomerular Filt Rate > 60; Sodium 140 mmol/L (135-145)
== END 2022-09-05 12:37 | disposition home or self-care (01) ==
LOC: HO.10HDL 12:36
PROVIDERS: Visit Provider Family Medicine
DX: I10 Essential (primary) hypertension (principal); D72.819 Decreased white blood cell count, unspecified
CPT/HCPCS: 36415; 80051; 82565; 84520; 85025

== ENCOUNTER → 2022-09-06 11:08 | Outpatient (BNVA) | payer MEDICARE, SELFPAY | PROVIDERS: PCP Family Medicine; Visit Provider Surgery ==

== ENCOUNTER 2022-09-28 09:53 | Outpatient (AMB) | payer MEDICARE, SELFPAY ==
--- NOTE | 2022-09-28 10:15 | A.OFFVIS_ITS ---
Intake Vital Signs 09/28/22 10:19 Height 6 ft 3 in Weight 245 lb 6 oz BMI 30.7 BP 114/71 Blood Pressure Location Lt brachial Position Sitting Pulse 82 Intake Visit Reasons: 3 wk follow up RIH w/ mesh Intake Note: Patient is seen in office for 3 wks follow up visit, post right inguinal hernia repair. Patient c/o: right testicle still sore, denies any swelling Treater Required: No Accompanied by: Self / Same As Patient Allergies almond Allergy (Mild, Verified 09/28/22 10:19) THROAT ITCHING sertraline Adverse Reaction (Severe, Verified 09/28/22 10:19) unresponsive HPI HPI Comments History of Present Illness Details 71-year-old male patient returning 1 month following repair of a left inguinal hernia with mesh. He previously complained of swelling and bruising extending into the scrotum. He is currently on Eliquis for paroxysmal atrial fibrillation. He feels much improved and denies any further pain, swelling or bruising. He feels ready to return to normal activity. [facility] Medical History (Updated 08/09/22 @ 10:35 by Radha De Dios RN) Arterial hypotension Arthritis Back pain DVT (deep venous thrombosis) Elevated cholesterol GERD (gastroesophageal reflux disease) HTN (hypertension) Hx of skin cancer, basal cell Mild ascending aorta dilatation Paroxysmal atrial fibrillation Pulmonary embolism Right bundle branch block Surgical History History of cardiac catheterization (~09/23/14) History of left knee replacement History of revision of total knee arthroplasty History of right inguinal hernia repair (08/16/22) History of spinal fusion (~04/14/20) History of tonsillectomy History of total knee arthroplasty History of umbilical hernia repair (03/13/17) Family History Father Pancreatic cancer Mother Alzheimer disease Social History Are you a primary family day care worker to a significant other at home: No Do you presently have visiting nurse or other home services: No Alcohol intake: never Patient Tobacco Use Status: Former Tobacco user Quit Date: Physical Exam Const General: no acute distress and well developed Nutritional Appearance: well nourished Orientation/consciousness: patient oriented x3 Limitations: no limitations Resp Effort & Inspection: normal respiratory effort GI Other: Soft, nondistended. Incision in the right groin is clean and intact with intact Steri-Strips. Swelling noted on the right side with no residual ecchymosis appreciated. No changes noted with Valsalva maneuvers. Skin General skin exam: no rashes or lesions noted Neuro General: patient oriented x3 Extrem General: Yes no clubbing, cyanosis or edema Assessment & Plan Assessment & Plan (1) Right inguinal hernia: Code(s): K40.90 - Unilateral inguinal hernia, without obstruction or gangrene, not specified as recurrent Plan 71-year-old male status post repair of a right inguinal hernia 1 month ago. Postoperatively he developed swelling and ecchymosis around the incision and in the testicle. This is now resolving in the incision is clean and intact. Examination reveals no recurrent hernia, infection, bleeding or discharge. He may resume normal activity without restriction and should follow up as needed. Coding Level of Care Code Global (94313) Diagnoses Right inguinal hernia K40.90
[2022-09-28 10:19] VITALS: BP 114/71; PULSE 82; BMI 30.7
== END 2022-09-28 10:23 | disposition home or self-care (01) ==
PROVIDERS: PCP Family Medicine; Visit Provider Surgery
DX: K40.90 Unilateral inguinal hernia, without obstruction or gangrene, not specified as recurrent (principal)
CPT/HCPCS: 99024

== ENCOUNTER → 2022-09-28 09:53 | Outpatient (BNVA) | payer MEDICARE, SELFPAY | PROVIDERS: PCP Family Medicine; Visit Provider Surgery ==

== ENCOUNTER 2022-10-10 09:01 | Outpatient (AMB) | payer MEDICARE, SELFPAY ==
[2022-10-10 09:06] VITALS: BP 120/70; PULSE 57; BMI 30.9
--- NOTE | 2022-10-10 09:06 | MHC.OFFVIS ---
Intake Vital Signs 10/10/22 09:06 Height 6 ft 3 in Weight 246 lb 14.684 oz BMI 30.9 BP 120/70 Blood Pressure Location Lt brachial Position Sitting Pulse 57 Intake Visit Reasons: 1 year follow up Intake Note: 1 year f/u Allergies almond Allergy (Mild, Verified 10/10/22 09:13) THROAT ITCHING sertraline Adverse Reaction (Severe, Verified 10/10/22 09:13) unresponsive Medication List - Last Reconciled 10/10/22 by Petra Corbin NP-C apixaban (Eliquis) 5 mg PO BID lvbfaae-aeslqbwookobu-nzspxolv 250-250-65 mg (Excedrin Migraine) 1 tab PO Q4-6H PRN cyclobenzaprine 10 mg PO BEDTIME diltiazem HCl 240 mg PO DAILY finasteride 5 mg PO QAM gabapentin 600 mg PO BEDTIME gabapentin 300 mg PO DAILY lansoprazole 30 mg PO DAILY magnesium oxide 400 mg PO DAILY multivitamin 1 tab PO DAILY oxycodone 5 mg PO Q8H PRN tamsulosin 0.4 mg PO BEDTIME wheat dextrin (Benefiber Sugar Free (dextrin)) 1 packet PO DAILY HPI 1 year follow up HPI Details William is a 71-year-old male with past medical history of mild CAD, paroxysmal AFib, right bundle branch block, dilated ascending aorta who presents for follow-up after recent echo. Today he reports that he has been feeling generally well in the last year. He has some fatigue but denies shortness of breath, chest discomfort. He will rarely feel brief palpitation. He can tell when he has atrial fibrillation and has not had anything concerning recently. No dizziness, presyncope, syncope, falls. No PND, orthopnea or edema. He reports light physical activity due to his chronic back pain. Taking all meds as directed. No bleeding issues reported. is present. FORMERLY [facility] Medical History Arterial hypotension Arthritis Back pain DVT (deep venous thrombosis) Elevated cholesterol GERD (gastroesophageal reflux disease) HTN (hypertension) Hx of skin cancer, basal cell Mild ascending aorta dilatation Paroxysmal atrial fibrillation Pulmonary embolism Right bundle branch block Surgical History History of cardiac catheterization (~09/23/14) History of left knee replacement History of revision of total knee arthroplasty History of right inguinal hernia repair (08/16/22) History of spinal fusion (~04/14/20) History of tonsillectomy History of total knee arthroplasty History of umbilical hernia repair (03/13/17) Family History Father Pancreatic cancer Mother Alzheimer disease Social History Are you a primary neonatal intensive care nurse to a significant other at home: No Do you presently have visiting nurse or other home services: No Alcohol intake: never Patient Tobacco Use Status: Former Tobacco user Quit Date: Review of Systems Const All systems reviewed & are unremarkable except as noted in HPI and below ENT Reports dizziness Card Denies chest pain, Denies chest pain at rest, Denies chest pain with activity, Denies rapid heart rate, Denies pedal edema, Denies edema, Denies leg edema, Denies lightheadedness, Denies palpitations, Denies dyspnea, Denies dyspnea on exertion and Denies orthopnea Resp Denies cough, Denies dyspnea and Denies dyspnea on exertion GI Denies hematochezia and Denies change in stool character Musc Denies abnormal gait, Reports limited range of motion, Reports muscle cramps, Denies muscle weakness, Denies numbness, Denies radiating pain into limb, Denies stiffness and Denies tingling Neuro Denies abnormal gait, Reports dizziness, Denies numbness and Denies tingling Endo Denies palpitations Physical Exam Vital Signs: Last Vital Signs Pulse 57 10/10/22 09:06 BP 120/70 10/10/22 09:06 BMI result Body Mass Index 30.9 Const General: cooperative, healthy appearing, comfortable and no acute distress Orientation/consciousness: patient oriented x3 Neck Neck: Yes normal visual inspection and Yes no JVD Resp Effort & Inspection: normal respiratory effort Auscultation: clear to auscultation bilaterally, no crackles, no rales, no rhonchi and no wheezes Cardio Jugular venous distension: no JVD Rate: regular rate Rhythm: regular rhythm Heart sounds: S1 normal heart sound present, S2 normal heart sound present, no murmurs and no rubs Neuro General: patient oriented x3 Extrem General: Yes normal to inspection, No no pedal edema and No calf tenderness Psych Appearance: grossly normal Mental Status: mental status grossly normal Speech and movement: Normal speech and movement present Office Procedures EKG Details: Today, read by me, sinus bradycardia with sinus arrhythmia, right bundle branch block, no acute ST or T-wave abnormalities, rate 57, QTC 434 milliseconds [id number], Complete Assessment & Plan Assessment & Plan (1) Mild ascending aorta dilatation: Code(s): I77.810 - Thoracic aortic ectasia Plan: History of thoracic aortic ectasia, 4.2 on echo 2019. CTA of the chest done at [facility] on 06/05/2020 shows thoracic aorta 4.3 cm. Echocardiogram done 08/14/2022 shows EF 63%, sinus of Valsalva 4.43 cm and ascending aorta 4.5 cm. Blood pressure is well controlled, heart rate controlled. Reviewed results with patient and he states understanding. Will plan for a repeat CTA of the chest 6 months after echo. Cardiology follow-up in 6 months, sooner if needed. (2) Paroxysmal atrial fibrillation: Code(s): I48.0 - Paroxysmal atrial fibrillation Plan: History of paroxysmal atrial fibrillation which seems mostly suppressed. He is able to feel heart palpitations when the AFib is present. He has had no concerning palpitations recently. He is on diltiazem for heart rate control. He is on Eliquis for anticoagulation. No bleeding issues reported. Labs done 09/05/2022 shows creatinine 0.91, hematocrit 34.4. Continue current management (3) Right bundle branch block: Code(s): I45.10 - Unspecified right bundle-branch block Plan: Chronic Orders: Orders CT angio chest aorta 5 Months I77.810 - Thoracic aortic ectasia Basic Metabolic Panel Today I77.810 - Thoracic aortic ectasia Coding Level of Care Code Est Pt Level 4 (59296) Diagnoses Mild ascending aorta dilatation I77.810 Paroxysmal atrial fibrillation I48.0 Right bundle branch block I45.10 CPT Codes EKG - CPT: [id number], Complete ([id number]) Time Spent (min) 26 Comment Chart review, documentation, interview, assess
== END 2022-10-10 09:35 | disposition home or self-care (01) ==
PROVIDERS: PCP Family Medicine; Visit Provider Nurse Practitioner Family
DX: I77.810 Thoracic aortic ectasia (principal); I48.0 Paroxysmal atrial fibrillation; I45.10 Unspecified right bundle-branch block
CPT/HCPCS: 93010; 99214

== ENCOUNTER → 2022-10-10 09:01 | Outpatient (BNVA) | payer MEDICARE, SELFPAY | PROVIDERS: PCP Family Medicine; Visit Provider Nurse Practitioner Family | DX: I77.810 Thoracic aortic ectasia (principal); I48.0 Paroxysmal atrial fibrillation; I45.10 Unspecified right bundle-branch block | CPT/HCPCS: 93005; 99212 ==

== ENCOUNTER 2023-01-15 15:13 | Outpatient (REF) | payer MEDICARE, SELFPAY ==
[2023-01-15 15:30] LABS: MANUAL DIFF FLAG NO
[2023-01-15 16:53] LABS: Basophils Percent Auto 0.5 % (0-2); Eosinophils Absolute Auto 0.1 X10*3/uL (0.0-0.4); Eosinophils Percent Auto 3.2 % (0-4); Hematocrit 35.5 % (42.0-52.0); Hemoglobin 10.9 g/dl (14.0-18.0); Lymphocytes Percent Auto 24.7 % (20-40); Mean Corpuscular HGB Conc 30.7 g/dl (31.0-36.0); Mean Corpuscular Volume 74.9 fL (80.0-98.0); Mean Platelet Volume 9.2 fL (9.4-12.4); Monocytes Absolute Auto 0.3 X10*3/uL (0.1-1.2); Monocytes Percent Auto 8.1 % (2-11); Neutrophils Absolute Auto 2.6 x10*3/uL (2.0-8.3); Neutrophils Percent Auto 63.5 % (45-73); Platelet Count 330 X10*3/uL (160-400); Red Blood Count 4.74 X10*6/uL (4.60-5.80); Red Cell Distribution Width 16.2 % (11.0-16.0); White Blood Count 4.1 X10*3/uL (4.8-10.8)
[2023-01-15 17:28] LABS: Alanine Aminotransferase 19 U/L (0-40); Anion Gap 14 (12-20); Aspartate Amino Transferase 16 U/L (5-37); Blood Urea Nitrogen 21 mg/dL (9-16); Carbon Dioxide 24 mmol/L (22-29); Chloride 105 mmol/L (96-108); Estimated Glomerular Filt Rate 58; Iron 23 mcg/dL (45-160); Percent Iron Saturation 6 % (15-50); Potassium 4.2 mmol/L (3.3-5.1); Sodium 139 mmol/L (135-145); Total Iron Binding Capacity 376 mcg/dL (228-428); Unsaturated Iron Binding 353 ug/dL
[2023-01-15 17:35] LABS: Ferritin 17 ng/mL (20-250)
[2023-01-15 17:46] LABS: Vitamin B12 1172 pg/mL (200-900)
== END 2023-01-15 15:14 | disposition home or self-care (01) ==
LOC: HO.LAB 15:13
PROVIDERS: PCP Family Medicine; Visit Provider Family Medicine
DX: D64.9 Anemia, unspecified (principal); I10 Essential (primary) hypertension; K75.81 Nonalcoholic steatohepatitis (NASH)
CPT/HCPCS: 36415; 80051; 82565; 82607; 82728; 82746; 83540; 84450; 84460; 84520; 85025

== ENCOUNTER 2023-02-09 12:02 | Outpatient (REF) | payer MEDICARE, SELFPAY ==
[2023-02-09 12:11] LABS: MANUAL DIFF FLAG NO
[2023-02-09 12:21] LABS: Basophils Percent Auto 0.7 % (0-2); Eosinophils Absolute Auto 0.2 X10*3/uL (0.0-0.4); Eosinophils Percent Auto 3.5 % (0-4); Hemoglobin 10.9 g/dl (14.0-18.0); Imm Gran Abs Auto 0.01 X10*3/uL (0.00-0.03); Imm Gran Pct Auto 0.2 % (0.0-0.4); Lymphocytes Absolute Auto 1.1 X10*3/uL (1.2-4.9); Lymphocytes Percent Auto 25.9 % (20-40); Mean Corpuscular HGB Conc 30.3 g/dl (31.0-36.0); Mean Corpuscular Volume 75.9 fL (80.0-98.0); Mean Platelet Volume 8.8 fL (9.4-12.4); Monocytes Absolute Auto 0.4 X10*3/uL (0.1-1.2); Monocytes Percent Auto 8.6 % (2-11); Neutrophils Absolute Auto 2.6 x10*3/uL (2.0-8.3); Neutrophils Percent Auto 61.1 % (45-73); Platelet Count 304 X10*3/uL (160-400); Red Blood Count 4.74 X10*6/uL (4.60-5.80); Red Cell Distribution Width 17.6 % (11.0-16.0); White Blood Count 4.3 X10*3/uL (4.8-10.8)
[2023-02-09 12:52] LABS: Alanine Aminotransferase 17 U/L (0-40); Albumin Level 4.1 g/dL (3.5-5.0); Alkaline Phosphatase 108 U/L (39-117); Amylase 34 U/L (28-100); Aspartate Amino Transferase 14 U/L (5-37); Bilirubin Direct < 0.2 mg/dL (0.0-0.5); Bilirubin Total 0.2 mg/dL (0.0-1.0); Lipase 27 U/L (8-78); Total Protein 7.3 g/dL (6.5-8.0)
== END 2023-02-09 12:03 | disposition home or self-care (01) ==
LOC: HO.LAB 12:02
PROVIDERS: PCP Family Medicine; Visit Provider Internal Medicine
DX: R10.13 Epigastric pain (principal); D50.9 Iron deficiency anemia, unspecified
CPT/HCPCS: 36415; 80076; 82150; 83690; 85025

== ENCOUNTER 2023-02-12 11:32 | Day surgery (SDC) | payer MEDICARE, SELFPAY ==
[2023-02-12 12:05] VITALS: BP 140/91; PULSE 80; RESP 16; TEMP 36.7; O2SAT 97; BMI 29.5
--- NOTE | 2023-02-12 12:23 | HO.ANESPROP2 ---
HPI - Anesthesia Eval Consult details Narrative: 72 yo male patient for EGD PMFSH Active Problems Active Problems: All Active Problems (Updated 02/12/23 @ 12:24 by Amber Carr MD) Chronic thoracic spine pain (Acute) Status post laminectomy with spinal fusion (Acute)- whole spine from high thoracic T4 to L3 Preoperative cardiovascular examination (Acute) Mild ascending aorta dilatation (Acute) Right bundle branch block (Acute) Paroxysmal atrial fibrillation (Acute) HTN H/o RUE DVT following Left TKR in 2013. Coumadin x 6months On eliquis for paroxysmal afib Past Medical History Medical History (Updated 02/12/23 @ 12:39 by Amber Carr MD) Hx of skin cancer, basal cell Back pain Arthritis GERD (gastroesophageal reflux disease) Elevated cholesterol HTN (hypertension) DVT (deep venous thrombosis) Pulmonary embolism Mild ascending aorta dilatation Right bundle branch block Paroxysmal atrial fibrillation Family History Family History Father Pancreatic cancer Mother Alzheimer disease Family history of problems with anesthesia: No Surgical History Surgical History History of esophagogastroduodenoscopy (EGD) H/O colonoscopy History of right inguinal hernia repair (08/16/22) History of left knee replacement History of umbilical hernia repair (03/13/17) History of revision of total knee arthroplasty History of total knee arthroplasty History of tonsillectomy History of spinal fusion (~04/14/20) History of cardiac catheterization (~09/23/14) History of Problems with Anesthesia: No Social History Social History Are you a primary primary care nurse practitioner to a significant other at home: No Do you presently have visiting nurse or other home services: No Alcohol intake: never Patient Tobacco Use Status: Former Tobacco user Quit Date: 40 yrs ago Use of substances other than those prescribed or required for medical reasons: No Are you DNR?: No Advance Directives: No Advance Directives Information Provided: Yes Meds Allergies Allergy/AdvReac Type Severity Reaction Status Date / Time almond Allergy Mild THROAT Verified 02/12/23 12:00 ITCHING sertraline AdvReac Severe unresponsiv Verified 02/12/23 12:00 e Home Medications Medication Instructions Recorded Confirmed Last Taken Type lansoprazole 30 mg capsule,delayed 30 mg PO DAILY 03/18/20 02/12/23 02/12/23 08:00 History release multivitamin 1 tab PO DAILY 03/18/20 02/12/23 Unknown History tamsulosin 0.4 mg capsule 0.4 mg PO BEDTIME 03/18/20 02/12/23 Unknown History wdzbsch-gdplsnbqppeup-kqxtcwuh 250 1 tab PO Q4-6H PRN Headache 04/17/22 02/12/23 Unknown History mg-250 mg-65 mg tablet (Excedrin Migraine) gabapentin 300 mg capsule 300 mg PO DAILY 04/17/22 02/12/23 02/12/23 08:00 History gabapentin 600 mg tablet 600 mg PO BEDTIME 04/17/22 02/12/23 Unknown History cyclobenzaprine 10 mg tablet 10 mg PO BEDTIME 07/27/22 02/12/23 Unknown History finasteride 5 mg tablet 5 mg PO QAM 08/09/22 02/12/23 Unknown History magnesium oxide 400 mg PO DAILY 08/09/22 02/12/23 Unknown History wheat dextrin 3 gram/4 gram oral 1 packet PO DAILY 08/09/22 02/12/23 Unknown History powder (Benefiber Sugar Free (dextrin)) oxycodone 5 mg capsule 5 mg PO Q8H PRN Pain 10/10/22 02/12/23 02/12/23 10:00 History Exam Height,Weight and Vital Signs: Height 6 ft 3 in Weight 107.048 kg Last Vital Signs Temp 98.1 F 02/12/23 12:05 Pulse 80 02/12/23 12:05 Resp 16 02/12/23 12:05 BP 140/91 H 02/12/23 12:05 Pulse Ox 97 02/12/23 12:05 O2 Del Method Room Air 02/12/23 12:05 Airway Mallampati Class: III TM Dist: >3cm Neck ROM: Full Loose/Missing/Broken Teeth: No (Denies broken, loose, missing teeth) Heart: RRR Lungs: CTAB Assessment and Plan Assessment Anesthesia Assessment: Anesthesia Plan Discussed and Chart Reviewed Final Anesthetic Review Family History of Problems with Anesthesia: No History of Problems with Anesthesia: No NPO: Yes ASA Class: III Final Preanesthetic Review: No Changes in Pt Med Stat, Meds/Allgs Chart Reviewed, Consent Obtained/Reviewed and Anes Risks/Benef Reviewed Patient Risk: Intermediate Procedure Risk: Low Assessment/Block/Sedation in SS: Assess/Block/Sedation-SS Anesthetic Plan Anesthetic Plan: MAC: Disposition: Standard PACU
[2023-02-12 14:27] VITALS: BP 127/78; PULSE 62; RESP 16; TEMP 36.4; O2SAT 98
--- NOTE | 2023-02-12 14:32 | P.BOP_ITS ---
Brief Operative Note Date of Service: 02/12/23 Pre-op diagnosis: Abdominal pain, anemia Post-op diagnosis: other (Gastric ulcer) Procedure: EGD with biopsies Surgeon: Brooks Barbour MD Anesthesia: MAC Was an Polystyrene Molding Machine Tender used for this Procedure?: No Estimated blood loss (mL): 2.0 Pathology: other (A. Descending duodenum B. Margins of gastric ulcer C. Gastric antrum) Condition: stable Disposition: PACU
[2023-02-12 14:42] VITALS: BP 136/88; PULSE 57; RESP 18; O2SAT 96
[2023-02-12 14:57] VITALS: BP 144/94; PULSE 70; O2SAT 98
--- NOTE | 2023-02-12 22:06 | OP_ITS ---
DATE OF SERVICE: 02/12/2023 SURGEON: Brooks Barbour MD INDICATIONS: The patient presents for evaluation of abdominal pain and iron deficiency anemia. Full consent has been obtained from him for this, including risks of bleeding and perforation. PREOPERATIVE DIAGNOSIS: POSTOPERATIVE DIAGNOSIS: PROCEDURE PERFORMED: Esophagogastroduodenoscopy with biopsies. ESTIMATED BLOOD LOSS: COMPLICATIONS: ANESTHESIA: Monitored anesthesia care. ASSISTANTS: SPECIMENS: PREOPERATIVE DIAGNOSES: Abdominal pain and iron deficiency anemia. POSTOPERATIVE DIAGNOSES: Abdominal pain and iron deficiency anemia, gastric ulcer, rule out celiac disease, rule out Helicobacter pylori. DESCRIPTION OF PROCEDURE: The patient was placed in the left lateral decubitus position. The Olympus video gastroscope was passed in the posterior oropharynx and upper esophagus under direct vision. The scope was passed slowly to the distal esophagus. The gastroesophageal junction appeared normal at 39 cm. There was no sign of any esophagitis nor Deluna esophagus. The scope entered the stomach. There was a minimal hiatal hernia. The scope was advanced to the pylorus, and the duodenum was cannulated to the descending portion. The duodenum including the bulb appeared normal without mass or ulceration. Biopsies were obtained from the second and third portions of the duodenum. The scope was withdrawn back into the stomach. The gastric antrum was notable for an ulcer extending along the antrum above the pylorus. It was approximately 6 to 8 mm in width but did extend along the suprapyloric portion of the antrum. It appeared to be grossly benign and there was no sign of any visible vessel nor bleeding. There was good peristalsis. The remainder of the antrum and body appeared normal. The scope was retroflexed visualizing the proximal stomach carefully which appeared normal, without any sign of mass or ulceration. The scope was straightened. Multiple biopsies were obtained from the margins of the ulcer. I then obtained biopsies from the gastric antrum itself. The scope was withdrawn back to the esophagus. The esophageal mucosa appeared normal. The scope was withdrawn from the patient. He tolerated the procedure well and was returned to the recovery area in stable condition. IMPRESSION: 1. Gastric antral ulcer, rule out Helicobacter pylori. 2. Rule out celiac disease. PLAN: The results of the biopsies will be checked. He has been advised to stay off all aspirin and NSAIDs long-term as he has been using ibuprofen regularly. He was advised to resume his Eliquis in 48 hours. He was advised to begin iron supplements. I do think today's findings would certainly account for his anemia, but I would recommend eventual colonoscopy as well since his last colonoscopy was in 2018. In regard to the episodes of abdominal pain, I am still concerned that he may have some symptomatic gallstones given the nature and description of his pain episodes. He is scheduled for an ultrasound in March, but I shall try to move that up to a much earlier date. This has all been discussed with his . MD LIZET Bush/BERTHA / [id number] MTDD
== END 2023-02-12 15:31 | disposition home or self-care (01) ==
PROVIDERS: PCP Family Medicine; Visit Provider Internal Medicine
PROC: 0DJ08ZZ Inspection of Upper Intestinal Tract, Via Natural or Artificial Opening Endoscopic (ICD-10-PCS; CPT 43235; principal; 2023-02-12 12:50)
DX: K25.9 Gastric ulcer, unspecified as acute or chronic, without hemorrhage or perforation (principal); K44.9 Diaphragmatic hernia without obstruction or gangrene; D50.9 Iron deficiency anemia, unspecified; R10.13 Epigastric pain; K21.9 Gastro-esophageal reflux disease without esophagitis; I10 Essential (primary) hypertension; E78.5 Hyperlipidemia, unspecified; I48.0 Paroxysmal atrial fibrillation; I45.10 Unspecified right bundle-branch block; Z86.711 Personal history of pulmonary embolism; Z86.718 Personal history of other venous thrombosis and embolism; Z85.828 Personal history of other malignant neoplasm of skin; Z87.891 Personal history of nicotine dependence; Z79.899 Other long term (current) drug therapy; Z79.82 Long term (current) use of aspirin; Z79.01 Long term (current) use of anticoagulants
CPT/HCPCS: 43239; 88305; 88342; J2704

== ENCOUNTER 2023-02-16 09:21 | Outpatient (REF) | payer MEDICARE, SELFPAY ==
--- NOTE | ~2023-02-16 | US_ITS ---
EXAMINATION: US ABDOMEN COMPLETE CLINICAL INFORMATION: Epigastric pain. COMPARISON: CT abdomen and pelvis 02/26/2022. Ultrasound abdomen complete 07/27/2014. TECHNIQUE: Real-time imaging of the abdominal viscera. Limited visualization due to bowel gas. FINDINGS: PANCREAS: Limited visualization. A 1.6 x 0.8 x 0.8 cm anechoic region with possible septations is located in the pancreatic body. This lesion was not appreciated on prior exam. ABDOMINAL AORTA: Nonaneurysmal. INFERIOR VENA CAVA: Visualized portions are normal. LIVER: Left hepatic anterior 0.9 x 0.9 x 0.9 cm cyst. Right hepatic 2.0 x 2.3 x 2.3 cm cyst. Limited visualization. GALLBLADDER: No gallstones. No gallbladder wall thickening. COMMON BILE DUCT: Normal in caliber measuring 0.53 cm in diameter. RIGHT KIDNEY: Midpole 0.9 x 1.4 x 1.3 cm cyst with benign features. There is no indication for follow-up imaging. Limited visualization. No hydronephrosis or renal calculi. The kidney measures 11.0 cm in maximum dimension. LEFT KIDNEY: Left extrarenal pelvis. No renal calculi. Limited visualization. The kidney measures 11.4 cm in maximum dimension. SPLEEN: Limited visualization. Splenomegaly. The spleen measures 13.1 cm in maximum dimension. FREE FLUID: None. US/US abdomen complete IMPRESSION: 1. A 1.6 cm anechoic lesion with possible septation to the pancreatic head was not identified on the prior exams. Differential considerations include pancreatic cyst versus focal pancreatic duct dilatation less likely. MRI recommended for further characterization. 2. Splenomegaly. 3. Hepatic cysts. 4. Right renal 1.4 cm cyst has benign features. There is no indication for follow-up imaging. 5. Limited visualization due to bowel gas and body habitus.
== END 2023-02-16 09:22 | disposition home or self-care (01) ==
LOC: HO.HMGCX 09:21
PROVIDERS: PCP Family Medicine; Visit Provider Internal Medicine
DX: R10.13 Epigastric pain (principal)
CPT/HCPCS: 76700

== ENCOUNTER 2023-02-21 12:22 | Outpatient (REF) | payer MEDICARE, SELFPAY ==
[2023-02-21 13:22] LABS: MANUAL DIFF FLAG NO
[2023-02-21 13:28] LABS: Basophils Percent Auto 0.1 % (0-2); Eosinophils Percent Auto 0.1 % (0-4); Hematocrit 37.5 % (42.0-52.0); Hemoglobin 11.7 g/dl (14.0-18.0); Imm Gran Abs Auto 0.03 X10*3/uL (0.00-0.03); Imm Gran Pct Auto 0.4 % (0.0-0.4); Lymphocytes Absolute Auto 0.8 X10*3/uL (1.2-4.9); Mean Corpuscular HGB Conc 31.2 g/dl (31.0-36.0); Mean Corpuscular Hemoglobin 23.8 pg (27.0-33.0); Mean Corpuscular Volume 76.4 fL (80.0-98.0); Mean Platelet Volume 9.3 fL (9.4-12.4); Monocytes Absolute Auto 0.5 X10*3/uL (0.1-1.2); Neutrophils Absolute Auto 7.2 x10*3/uL (2.0-8.3); Neutrophils Percent Auto 84.4 % (45-73); Platelet Count 310 X10*3/uL (160-400); Red Blood Count 4.91 X10*6/uL (4.60-5.80); Red Cell Distribution Width 18.9 % (11.0-16.0); White Blood Count 8.5 X10*3/uL (4.8-10.8)
[2023-02-21 13:59] LABS: Blood Urea Nitrogen 21 mg/dL (9-16); Estimated Glomerular Filt Rate > 60; Iron 20 mcg/dL (45-160); Percent Iron Saturation 5 % (15-50); Total Iron Binding Capacity 384 mcg/dL (228-428); Unsaturated Iron Binding 364 ug/dL
[2023-02-21 14:05] LABS: Ferritin 20 ng/mL (20-250)
[2023-02-21 14:07] LABS: Erythrocyte Sedimentation Rate 8 MM/HR (0-15)
[2023-02-22 11:59] LABS: Carbohydrate Antigen 19-9 5 U/mL (<34)
== END 2023-02-21 12:23 | disposition home or self-care (01) ==
LOC: HO.10HDL 12:22
PROVIDERS: Visit Provider Family Medicine
DX: R10.13 Epigastric pain (principal); I10 Essential (primary) hypertension; K25.9 Gastric ulcer, unspecified as acute or chronic, without hemorrhage or perforation; D50.9 Iron deficiency anemia, unspecified
CPT/HCPCS: 36415; 82378; 82565; 82728; 83540; 84520; 85025; 85652; 86301

== ENCOUNTER 2023-03-21 09:11 | Outpatient (REF) | payer MEDICARE, SELFPAY ==
[2023-03-21 10:58] LABS: Anion Gap 14 (12-20); Blood Urea Nitrogen 17 mg/dL (9-16); Calcium 9.5 mg/dL (8.4-10.2); Carbon Dioxide 27 mmol/L (22-29); Chloride 104 mmol/L (96-108); Estimated Glomerular Filt Rate > 60; Glucose Random 72 mg/dL (60-115); Potassium 3.9 mmol/L (3.3-5.1); Sodium 141 mmol/L (135-145)
== END 2023-03-21 09:12 | disposition home or self-care (01) ==
LOC: HO.LAB 09:11
PROVIDERS: Visit Provider Nurse Practitioner Family
DX: I77.810 Thoracic aortic ectasia (principal)
CPT/HCPCS: 36415; 80048

== ENCOUNTER 2023-03-28 08:47 | Outpatient (REF) | payer MEDICARE, SELFPAY ==
--- NOTE | ~2023-03-28 | CT_ITS ---
EXAMINATION: CTA OF THE CHEST WITHOUT AND WITH CONTRAST CLINICAL INFORMATION: Thoracic aortic ectasia. COMPARISON: CTA chest 07/30/2014. TECHNIQUE: CT angiography of the chest was performed without and with contrast. 80 mL Omnipaque 350 administered intravenously without complication. 3D POSTPROCESSIN-D MIP images were processed from the initial data set by the imaging analyst on the technologist workstation under concurrent physician supervision. DOSE LOWERING TECHNIQUES: This CT examination was performed using dose optimization techniques as appropriate, variously including the following: - Automated exposure control - Adjustment of mA and/or kV according to patient size (this includes techniques or standardized protocols for targeted exams where dose is matched to indication/reason for exam; i.e. extremities or head) - Use of iterative construction technique DOSE-LENGTH PRODUCT: 333 mGycm FINDINGS: CORONARY ARTERIES: No demonstrable calcium. ASCENDING AORTA: Aortic valve appears tricuspid. The aortic sinuses measure 4.5 x 4.1 cm the sinotubular junction measures 3.8 x 3.4 cm. The tubular segment measures 4.2 x 4.2 cm. On the prior CTA from 2014 the sinuses measure up to 4.4 cm and the tubular segment measures up to 4.0 cm. AORTIC ARCH: No aneurysm. Three-vessel branching pattern. The great vessels are patent. DESCENDING AORTA: No aneurysm. INCLUDED UPPER ABDOMINAL AORTA: No aneurysm. The included celiac origin is patent. Incidental note made of an accessory left hepatic artery from the left gastric artery. PULMONARY ARTERIES: The exam was performed in the systemic arterial phase and not timed to evaluate the pulmonary arteries. NONVASCULAR: Arterial phase imaging limits evaluation of nonvascular structures. LUNG: No suspicious pulmonary nodules. Tiny parenchymal lymph node along the left major fissure few scattered micronodules for which no imaging follow-up is recommended as per Fleischner Society guidelines. Mild airway wall thickening. PLEURA: No pleural effusion or pneumothorax. MEDIASTINUM: No adenopathy. No pericardial effusion. CHEST WALL/AXILLA: No axillary or internal mammary lymphadenopathy. OSSEOUS STRUCTURES: Extensive spinal fusion. UPPER ABDOMEN: Simple cyst in the right hepatic lobe. Simple cyst in the left hepatic lobe. No imaging follow-up is recommended. CT/CT angio chest aorta IMPRESSION: No significant change in the ascending aortic aneurysm measuring 4.5 cm at the aortic sinuses and 4.2 cm in the tubular segment when compared to 07/30/2014. Fleischner guidelines were followed.
[2023-03-28] MEDS: iohexoL 350 MG/ML 75 ML INFUS..BTL 70 ML IV (09:17)
== END 2023-03-28 08:48 | disposition home or self-care (01) ==
LOC: HO.CT 08:47
PROVIDERS: PCP Family Medicine; Visit Provider Nurse Practitioner Family
DX: I77.810 Thoracic aortic ectasia (principal)
CPT/HCPCS: 71275; Q9967

== ENCOUNTER 2023-04-25 17:59 | Emergency (ER) | payer MEDICARE, SELFPAY ==
--- NOTE | 2023-04-25 | ECG_ITS ---
Test Reason : Chest Pain Blood Pressure : / mmHG Vent. Rate : 062 BPM Atrial Rate : 062 BPM P-R Int : 168 ms QRS Dur : 138 ms QT Int : 438 ms P-R-T Axes : 022 -28 004 degrees QTc Int : 444 ms Normal sinus rhythm Right bundle branch block Abnormal ECG When compared with ECG of 25-FEB-2022 19:33, No significant change was found Referred By: Generic ED Physician Electronically Signed By:Joe Slaughter
--- NOTE | ~2023-04-25 | CT_ITS ---
EXAMINATION: CT ABDOMEN AND PELVIS WITHOUT CONTRAST CLINICAL INFORMATION: Left flank pain. COMPARISON: 02/26/2022 TECHNIQUE: Multidetector volumetric imaging was performed from the superior aspect of the liver through the pubic symphysis. Sagittal and coronal reformatted images were obtained on the technologist's workstation. This CT examination was performed using dose optimization techniques as appropriate, variously including the following: *Automated exposure control *Adjustment of mA and/or kV according to patient size (this includes techniques or standardized protocols for targeted exams where dose is matched to indication/reason for exam; i.e. extremities or head) *Use of iterative reconstruction technique DLP: 762 mGy-cm FINDINGS: LUNG BASES: There is minimal scarring at the left lung base. LIVER, GALLBLADDER, AND BILIARY TREE: There is a stable small cyst at the dome of the liver. There is no intrahepatic biliary duct dilatation. The gallbladder is unremarkable with no evidence of radiopaque gallstones, gallbladder wall thickening, or obvious pericholecystic inflammatory changes. PANCREAS: There is pancreatic atrophy/fatty infiltration. SPLEEN: Unremarkable. ADRENAL GLANDS: Unremarkable. KIDNEYS AND URETERS: The kidneys are normal in size, shape, and attenuation. No hydronephrosis, hydroureter, or calculi seen. No perinephric stranding. BLADDER: Unremarkable. GASTROINTESTINAL TRACT: There is retained stool. There are diverticula of the descending and the sigmoid colon without diverticulitis. The appendix is visualized and is within normal limits. ABDOMINAL WALL: No significant hernia is appreciated. LYMPH NODES: Normal. VASCULAR: Unremarkable. PELVIC VISCERA: The prostate gland measures 6 x 4.8 x 6.1 cm. OSSEOUS STRUCTURES: Thoracolumbosacral orthopedic hardware is noted. There is curvature of the thoracolumbar spine convex to the left. CT/CT abdomen pelvis wo IV con IMPRESSION: 1. No acute abnormality in the abdomen or pelvis. 2. Diverticulosis without diverticulitis. 3. Prostatomegaly. Fleischner guidelines were followed.
--- NOTE | ~2023-04-25 | XR_ITS ---
EXAMINATION: XR CHEST CLINICAL INFORMATION: Chest pain COMPARISON: Chest 02/25/2022. TECHNIQUE: 2 views of the chest were obtained. FINDINGS: The lungs are well-expanded and clear of acute pneumonic process. Heart size and pulmonary vascularity is normal. There are 2 Mora rods extending from T3 to upper lumbar spine. The distal end of the Mora rods are not in the [id number]. The hardware appears to be intact and unchanged. No bony rib fractures identified. XR/XR chest 2V IMPRESSION: 1. No acute cardiopulmonary process seen. 2 Mora rods extending from T3 to upper lumbar spine are stable.
[2023-04-25 18:19] VITALS: BP 135/93; PULSE 83; RESP 18; TEMP 36; O2SAT 96; BMI 29.5
--- NOTE | 2023-04-25 18:19 | ED.GENADULT ---
HPI - General Adult General Chief complaint: Chest Pain Stated complaint: Chest pain and left side pain Time Seen by Provider: 04/26/23 00:06 History of Present Illness HPI narrative: The patient is a 72-year-old male. He has a history of atrial fibrillation and history of provoked pulmonary embolism.. He is on anticoagulation. He comes to the emergency room because he has had left flank pain since Sunday. He is aware of the discomfort primarily at night when he is lying down. He has to get out of his bed and into a recliner because of the pain. The pain is not worse with movements or positions. The pain does not radiate to his groin. No fever, sweats, chills. No pulmonary component to his discomfort. He does not feel short of breath and the pain is not exacerbated by breathing. He can not think of any injury. He says that sometimes he feels some discomfort in the middle of his chest but he does not have that discomfort now. He attributes this to an ulcer. He has never had this flank pain before. The patient has a history of extensive spinal surgery 2 or 3 years ago. He has large Mora rods in his back. He says that he has chronic pain related to his surgery and takes oxycodone. He wonders whether his pain might be related to his postsurgical pains. Related Data Home Medications Medication Instructions Recorded Confirmed lansoprazole 30 mg capsule,delayed 30 mg PO DAILY 03/18/20 02/12/23 release multivitamin 1 tab PO DAILY 03/18/20 02/12/23 tamsulosin 0.4 mg capsule 0.4 mg PO BEDTIME 03/18/20 02/12/23 hneodkh-qsnpghhrfnygq-ebhtkokb 250 1 tab PO Q4-6H PRN Headache 04/17/22 02/12/23 mg-250 mg-65 mg tablet (Excedrin Migraine) gabapentin 300 mg capsule 300 mg PO DAILY 04/17/22 02/12/23 gabapentin 600 mg tablet 600 mg PO BEDTIME 04/17/22 02/12/23 cyclobenzaprine 10 mg tablet 10 mg PO BEDTIME 07/27/22 02/12/23 finasteride 5 mg tablet 5 mg PO QAM 08/09/22 02/12/23 magnesium oxide 400 mg PO DAILY 08/09/22 02/12/23 wheat dextrin 3 gram/4 gram oral 1 packet PO DAILY 08/09/22 02/12/23 powder (Benefiber Sugar Free (dextrin)) oxycodone 5 mg capsule 5 mg PO Q8H PRN Pain 10/10/22 02/12/23 Previous Rx's Medication Instructions Recorded diltiazem HCl 240 mg 240 mg PO DAILY #90 caps 05/22/22 capsule,extended release 24 hr apixaban 5 mg tablet (Eliquis) 5 mg PO BID #60 tabs 10/30/22 Allergies Allergy/AdvReac Type Severity Reaction Status Date / Time almond Allergy Mild THROAT Verified 04/25/23 18:19 ITCHING sertraline AdvReac Severe unresponsiv Verified 04/25/23 18:19 e Review of Systems Review of Systems: Yes all other systems are reviewed and are negative [facility] Past Medical History Medical History (Updated 04/26/23 @ 02:12 by Brayden Blackman MD) Hx of skin cancer, basal cell Back pain Arthritis GERD (gastroesophageal reflux disease) Elevated cholesterol HTN (hypertension) DVT (deep venous thrombosis) Pulmonary embolism Mild ascending aorta dilatation Right bundle branch block Paroxysmal atrial fibrillation Surgical History History of esophagogastroduodenoscopy (EGD) H/O colonoscopy History of right inguinal hernia repair (08/16/22) History of left knee replacement History of umbilical hernia repair (03/13/17) History of revision of total knee arthroplasty History of total knee arthroplasty History of tonsillectomy History of spinal fusion (~04/14/20) History of cardiac catheterization (~09/23/14) Family History Family History Father Pancreatic cancer Mother Alzheimer disease Social History Social History Are you a primary healthcare advisory services manager to a significant other at home: No Do you presently have visiting nurse or other home services: No Alcohol intake: never Patient Tobacco Use Status: Former Tobacco user Quit Date: 40 yrs ago Advance Directives: No Advance Directives Information Provided: No Physical Exam ED Vital Signs: Vital Signs - 24 hr 04/25/23 18:19 04/25/23 20:52 04/25/23 23:04 Temperature 96.8 F 97.8 F 98.7 F Pulse Rate 83 72 51 Respiratory Rate 18 16 14 Blood Pressure 135/93 H 136/87 165/85 H Pulse Oximetry 96 96 98 Oxygen Delivery Method Room Air Room Air Room Air BMI result Body Mass Index 29.5 Const Other: The patient is awake and alert. He is pleasant and cooperative. He does not appear in obvious distress or discomfort. He does not seem toxic in any way. HENMT Other: Face is symmetrical. Mucous membranes moist Eyes Other: Pupils are round equal, conjunctivae are clear, extraocular movements are intact Neck Other: No JVD Chest Other: No crepitus or subcutaneous emphysema. No marked rib tenderness. Resp Effort & Inspection: normal respiratory effort Auscultation: clear to auscultation bilaterally Cardio Rate: regular rate Rhythm: regular rhythm Heart sounds: S1 normal heart sound present and S2 normal heart sound present GI Other: The abdomen is soft and nontender. Back/Spine/Pelvis Other: On my initial exam I felt that there might be left-sided CVA percussion tenderness. There does seem to be left-sided paraspinous tenderness in the region of the lower thoracic spine. Palpation seems to reproduce his pain. The patient has a very large midline scar in the back. Skin Other: Skin is dry and unremarkable. Neuro Other: The patient is awake, alert, pleasant, cooperative. Face is symmetrical. Eye movements are intact. Pupils are normal. Speech is clear. He moves his extremities normally and appropriately. Gait is steady. He seems grossly neurologically intact Extrem Other: No peripheral edema. Course Course Course Narrative: Patient complains 1 week of chest pain, pain is described as chest pain which radiates to his back and the left side of his back as well, chest pain is central The pain has been waxing and waning but has not completely gone away, he has no shortness of breath, pain is severe enough that it has been keeping awake for most of the night No fainting no nausea or vomiting no diaphoresis, it is not related to exertion He does have a history of pulmonary embolus and is on Eliquis Chest x-ray, EKG and labs are ordered This is rapid medical exam done in triage pending full evaluation and disposition from ER provider Medical Decision Making Medical Decision Making MDM Narrative: The patient is a very pleasant 72-year-old who presents with pain in the left flank region. The pain does not radiate to his groin. It comes more along the costal margin on the left side. His abdomen seems benign. On my initial exam the patient seemed to have some left-sided CVA percussion tenderness. This suggested the possibility that he might have a kidney stone although he did not really look like someone with ureteral colic. His description of the pain however did not really suggest any other obvious process. His description of the symptoms is not really suggestive of an acute coronary syndrome. It is not really suggestive of aortic pathology (he has a known ascending aortic dilation which has been stable for many years based on a CT scan last month). The patient has an EKG that shows sinus rhythm with an old right bundle branch block and is similar to previous EKGs. A noncontrast CT scan of the abdomen and pelvis does not show any kidney stones or any other obvious pathology. The lower lung vaca are clear. There is no pleural effusion. Clinically the patient really looks quite well and my suspicion for dangerous process is quite low. The patient is on oxycodone because of chronic pains related to his significant back surgery that he had 2 or 3 years ago. I think his pain today is probably more likely musculoskeletal pain than anything else. He will be discharged with instructions to follow up with his regular doctors. He should return if worse. Lab Data 04/25/23 18:17 04/25/23 19:37 Labs: Lab Results 04/25/23 04/25/23 04/25/23 Range/Units 18:17 19:37 20:59 WBC 7.1 (4.8-10.8) X10*3/uL RBC 5.45 (4.60-5.80) X10*6/uL Hgb 14.2 D (14.0-18.0) g/dl Hct 43.1 (42.0-52.0) % MCV 79.1 L (80.0-98.0) fL MCH 26.1 L (27.0-33.0) pg MCHC 32.9 (31.0-36.0) g/dl RDW 19.6 H (11.0-16.0) % Plt Count 271 (160-400) X10*3/uL MPV 8.8 L (9.4-12.4) fL Immature Gran % (Auto) 0.1 (0.0-0.4) % Neut % (Auto) 72.9 (45-73) % Lymph % (Auto) 17.7 L (20-40) % [place] % (Auto) 6.3 (2-11) % Eos % (Auto) 2.7 (0-4) % Baso % (Auto) 0.3 (0-2) % Lymph # (Auto) 1.3 (1.2-4.9) X10*3/uL [place] # (Auto) 0.5 (0.1-1.2) X10*3/uL Eos # (Auto) 0.2 (0.0-0.4) X10*3/uL Baso # (Auto) 0.0 (0.0-0.2) X10*3/uL Abs Immat Gran (auto) 0.01 (0.00-0.03) X10*3/uL Absolute Neuts (auto) 5.2 (2.0-8.3) x10*3/uL Absolute Nucleated RBC 0.000 (0.0-0.012) X10*3/uL Nucleated RBC % (auto) 0.0 (0.0-0.2) /100WBC PT 13.8 H (11.1-13.3) SEC INR 1.1 (0.9-1.1) Sodium 139 139 (135-145) mmol/L Potassium 4.7 D 4.3 (3.3-5.1) mmol/L Chloride 102 105 (96-108) mmol/L Carbon Dioxide 25 28 (22-29) mmol/L Anion Gap 17 10 L (12-20) BUN 12 13 (9-16) mg/dL Creatinine 1.02 1.02 (0.5-1.4) mg/dL Estim Creat Clear Calc 84.3 84.3 Estimated GFR > 60 > 60 Random Glucose 109 112 (60-115) mg/dL Calcium 9.7 9.2 (8.4-10.2) mg/dL Total Bilirubin 0.3 0.3 (0.0-1.0) mg/dL Direct Bilirubin 0.1 (0.0-0.5) mg/dL AST 11 11 (5-37) U/L ALT 13 13 (0-40) U/L Alkaline Phosphatase 118 H 117 (39-117) U/L Troponin I High Sens < 2.7 (<3.5-35.0) ng/L Total Protein 7.4 7.1 (6.5-8.0) g/dL Albumin 4.4 4.2 (3.5-5.0) g/dL Lipase 26 (8-78) U/L Urine Color Yellow Urine Appearance Clear Urine pH 6.0 (5.0-9.0) Ur Specific Ethel 1.015 (1.005-1.025) Urine Protein Negative (Neg-Trace) mg/dL Urine Glucose (UA) Negative (Negative) mg/dL Urine Ketones Negative (Negative) mg/dL Urine Blood Negative (Negative) Urine Nitrite Negative (Negative) Ur Leukocyte Esterase Negative (Negative) Discharge Plan Discharge Clinical Impression: Acute left flank pain Patient Disposition: Home, Self-Care Additional Instructions: The tests that we have done in the emergency room today seem reassuring. My suspicion is that this pain is musculoskeletal pain rather than a more dangerous pain. You may take 2 extra-strength acetaminophen (Tylenol) up to 3 times a day if you feel this is at all helpful for your pain. You may use this in addition to your oxycodone. Please plan on following up with your regular doctor as well as your specialists. If at any point you feel significantly worse please return to the emergency room for additional evaluation. Prescriptions: No Action diltiazem HCl 240 mg capsule,extended release 24hr 240 mg PO DAILY Qty: 90 3RF Eliquis 5 mg tablet 5 mg PO BID Qty: 60 6RF finasteride 5 mg tablet 5 mg PO QAM magnesium oxide 400 mg magnesium Tablet 400 mg PO DAILY Benefiber Sugar Free (dextrin) 3 gram/4 gram Powder 1 packet PO DAILY Rx Instructions: mix into at least 4 oz water or juice before administering tamsulosin 0.4 mg capsule 0.4 mg PO BEDTIME lansoprazole 30 mg capsule,delayed release(DR/EC) 30 mg PO DAILY multivitamin Tablet 1 tab PO DAILY gabapentin 600 mg tablet 600 mg PO BEDTIME gabapentin 300 mg capsule 300 mg PO DAILY Excedrin Migraine 250-250-65 mg tablet 1 tab PO Q4-6H PRN (Reason: Headache) cyclobenzaprine 10 mg tablet 10 mg PO BEDTIME oxycodone 5 mg capsule 5 mg PO Q8H PRN (Reason: Pain) Referrals: Glen Edmond MD [Primary Care Provider] - (Left flank pain) Interventions: ED Discharge Assessment Last Done: 04/26/23 02:19 Discharge Date/Time: 04/26/23 02:21
[2023-04-25 18:23] LABS: MANUAL DIFF FLAG NO
[2023-04-25 18:24] LABS: Basophils Percent Auto 0.3 % (0-2); Eosinophils Absolute Auto 0.2 X10*3/uL (0.0-0.4); Eosinophils Percent Auto 2.7 % (0-4); Hematocrit 43.1 % (42.0-52.0); Hemoglobin 14.2 g/dl (14.0-18.0); Imm Gran Abs Auto 0.01 X10*3/uL (0.00-0.03); Imm Gran Pct Auto 0.1 % (0.0-0.4); Lymphocytes Absolute Auto 1.3 X10*3/uL (1.2-4.9); Lymphocytes Percent Auto 17.7 % (20-40); Mean Corpuscular HGB Conc 32.9 g/dl (31.0-36.0); Mean Corpuscular Hemoglobin 26.1 pg (27.0-33.0); Mean Corpuscular Volume 79.1 fL (80.0-98.0); Mean Platelet Volume 8.8 fL (9.4-12.4); Monocytes Absolute Auto 0.5 X10*3/uL (0.1-1.2); Monocytes Percent Auto 6.3 % (2-11); Neutrophils Absolute Auto 5.2 x10*3/uL (2.0-8.3); Neutrophils Percent Auto 72.9 % (45-73); Platelet Count 271 X10*3/uL (160-400); Red Blood Count 5.45 X10*6/uL (4.60-5.80); Red Cell Distribution Width 19.6 % (11.0-16.0); White Blood Count 7.1 X10*3/uL (4.8-10.8)
[2023-04-25 18:38] LABS: Alanine Aminotransferase 13 U/L (0-40); Albumin Level 4.4 g/dL (3.5-5.0); Alkaline Phosphatase 118 U/L (39-117); Anion Gap 17 (12-20); Aspartate Amino Transferase 11 U/L (5-37); Bilirubin Total 0.3 mg/dL (0.0-1.0); Blood Urea Nitrogen 12 mg/dL (9-16); Calcium 9.7 mg/dL (8.4-10.2); Carbon Dioxide 25 mmol/L (22-29); Chloride 102 mmol/L (96-108); Creatinine Clr Calc Pharmacy 84.3; Estimated Glomerular Filt Rate > 60; Glucose Random 109 mg/dL (60-115); Potassium 4.7 mmol/L (3.3-5.1); Sodium 139 mmol/L (135-145); Total Protein 7.4 g/dL (6.5-8.0)
[2023-04-25 18:49] LABS: Troponin-I High Sensitivity < 2.7 ng/L (<3.5-35.0)
[2023-04-25 19:50] LABS: INTERNATIONAL NORM RATIO 1.1 (0.9-1.1); Prothrombin Time 13.8 SEC (11.1-13.3)
[2023-04-25 20:06] LABS: Alanine Aminotransferase 13 U/L (0-40); Albumin Level 4.2 g/dL (3.5-5.0); Alkaline Phosphatase 117 U/L (39-117); Anion Gap 10 (12-20); Aspartate Amino Transferase 11 U/L (5-37); Bilirubin Direct 0.1 mg/dL (0.0-0.5); Bilirubin Total 0.3 mg/dL (0.0-1.0); Blood Urea Nitrogen 13 mg/dL (9-16); Calcium 9.2 mg/dL (8.4-10.2); Carbon Dioxide 28 mmol/L (22-29); Chloride 105 mmol/L (96-108); Creatinine Clr Calc Pharmacy 84.3; Estimated Glomerular Filt Rate > 60; Glucose Random 112 mg/dL (60-115); Lipase 26 U/L (8-78); Potassium 4.3 mmol/L (3.3-5.1); Sodium 139 mmol/L (135-145); Total Protein 7.1 g/dL (6.5-8.0)
[2023-04-25 20:52] VITALS: BP 136/87; PULSE 72; RESP 16; TEMP 36.6; O2SAT 96
[2023-04-25 21:08] LABS: Appearance Urine Clear; Color Urine Yellow; Glucose Urine UA Negative (Negative); Leukocyte Esterase Urine Negative (Negative); Nitrite Urine Negative (Negative); Specific Gravity - Urine 1.015 (1.005-1.025); Urine Blood Negative (Negative); Urine Ketones Negative (Negative); Urine Protein Negative (Neg-Trace)
--- OUTSIDE RECORDS SUMMARY | 2023-04-25 23:01 | XMS_ITS | Patient Health Record ---
Author Name Unknown Organization [facility] Address [address] [place] [address] Care Team Providers Care Advanced Clinical Specialist Name Role Phone Mayito WHITE, Glen Primary Care Provider Unavailab Brooks Robles Unavailable [phone] ALLERGIES No Known Allergies RESULTS Component Value Reference Range Notes Amylase Reviewed date:02/09/2023 05:18:32 PM Interpretation: Performing Lab:[facility], [address] [place] [phone] Notes/Report: Amylase 34 28-100 U/L Lipase Reviewed date:02/09/2023 05:18:00 PM Interpretation: Performing Lab:[facility], [address] [place] [phone] Notes/Report: Lipase 27 8-78 U/L US abdomen complete Reviewed date:02/21/2023 05:31:30 PM Interpretation: Performing Lab: Notes/Report: [facility] [facility] [place] [address] Ultrasound Report Signed Patient: Casey Ruiz MR#: [id number] 1 : 1950 Acct:[id number] Age/Sex: 72 / M ADM Date: 02/16/23 Loc: HO.HMGCX Attending Dr: Brooks Barbour MD Ordering Physician: Brooks Barbour Date of Service: 02/16/23 Procedure(s): US abdomen complete Accession Number(s): [id number] cc: Glen Edmond MD; Brooks Barbour EXAMINATION: US ABDOMEN COMPLETE CLINICAL INFORMATION: Epigastric pain. COMPARISON: CT abdomen and pelvis 02/26/2022. Ultrasound abdomen complete 07/27/2014. TECHNIQUE: Real-time imaging of the abdominal viscera. Limited visualization due to bowel gas. FINDINGS: PANCREAS: Limited visualization. A 1.6 x 0.8 x 0.8 cm anechoic region with possible septations is located in the pancreatic body. This lesion was not appreciated on prior exam. ABDOMINAL AORTA: Nonaneurysmal. INFERIOR VENA CAVA: Visualized portions are normal. LIVER: Left hepatic anterior 0.9 x 0.9 x 0.9 cm cyst. Right hepatic 2.0 x 2.3 x 2.3 cm cyst. Limited visualization. GALLBLADDER: No gallstones. No gallbladder wall thickening. COMMON BILE DUCT: Normal in caliber measuring 0.53 cm in diameter. RIGHT KIDNEY: Midpole 0.9 x 1.4 x 1.3 cm cyst with benign features. There is no indication for follow-up imaging. Limited visualization. No hydronephrosis or renal calculi. The kidney measures 11.0 cm in maximum dimension. LEFT KIDNEY: Left extrarenal pelvis. No renal calculi. Limited visualization. The kidney measures 11.4 cm in maximum dimension. SPLEEN: Limited visualization. Splenomegaly. The spleen measures 13.1 cm in maximum dimension. FREE FLUID: None. US/US abdomen complete IMPRESSION: 1. A 1.6 cm anechoic lesion with possible septation to the pancreatic head was not identified on the prior exams. Differential considerations include pancreatic cyst versus focal pancreatic duct dilatation less likely. MRI recommended for further characterization. 2. Splenomegaly. 3. Hepatic cysts. 4. Right renal 1.4 cm cyst has benign features. There is no indication for follow-up imaging. 5. Limited visualization due to bowel gas and body habitus. Dictated By: Laney Pack MD Signed By: <Electronically signed by Laney Pack MD in OV> 02/19/23 1247 DD/ 0950 TD/TT: Customer Service Representative Teller: Complete Blood Count Auto Di ff Reviewed date:02/09/2023 05:17:36 PM Interpretation: Performing Lab:[facility], [address] [place] [phone] Notes/Report: White Blood Count 4.3 4.8-10.8 X10*3/uL Red Blood Count 4.74 4.60-5.80 X10*6/uL Hemoglobin 10.9 14.0-18.0 g/dl Hematocrit 36.0 42.0-52.0 % Mean Corpuscular Volume 75.9 80.0-98.0 fL Mean Corpuscular Hemoglobin 23.0 27.0-33.0 pg Mean Corpuscular HGB Conc 30.3 31.0-36.0 g/dl Red Cell Distribution Width 17.6 11.0-16.0 % Platelet Count 304 160-400 X10*3/uL Mean Platelet Volume 8.8 9.4-12.4 fL Neutrophils Percent Auto 61.1 45-73 % Imm Gran Pct Auto 0.2 0.0-0.4 % Lymphocytes Percent Auto 25.9 20-40 % Monocytes Percent Auto 8.6 2-11 % Eosinophils Percent Auto 3.5 0-4 % Basophils Percent Auto 0.7 0-2 % NRBC Pct Auto 0.0 0.0-0.2 /100WBC Neutrophils Absolute Auto 2.6 2.0-8.3 x10*3/u L Imm Gran Abs Auto 0.01 0.00-0.03 X10*3/uL Lymphocytes Absolute Auto 1.1 1.2-4.9 X10*3/u L Monocytes Absolute Auto 0.4 0.1-1.2 X10*3/uL Eosinophils Absolute Auto 0.2 0.0-0.4 X10*3/u L Basophils Absolute Auto 0.0 0.0-0.2 X10*3/uL NRBC Abs Auto 0.000 0.0-0.012 X10*3/uL Liver Panel Reviewed date:02/09/2023 05:17:53 PM Interpretation: Performing Lab:[address] [phone] Notes/Report: Bilirubin Total 0.2 0.0-1.0 mg/dL Bilirubin Direct < 0.2 0.0-0.5 mg/dL Aspartate Amino Transferase 14 5-37 U/L Alanine Aminotransferase 17 0-40 U/L Total Protein 7.3 6.5-8.0 g/dL Albumin Level 4.1 3.5-5.0 g/dL Alkaline Phosphatase 108 39-117 U/L Pathology Reviewed date:02/20/2023 11:58:11 PM Interpretation: Performing Lab:[address], [place] [address] Notes/Report: REASON FOR REFERRAL No Information MEDICATIONS Medication SIG (Take, Route, Frequency, Duration) Notes Start Date End Date Status Magnesium 400 MG as directed Orally Active Eliquis 5 MG 1 tablet Orally Twice a day for 30 day(s) Active Cyclobenzaprine HCl 10 MG 1 tablet at bedtime as needed Orally Once a day for 30 day(s) Not-Taking Finasteride 5 MG 1 tablet Orally Once a day Active Benefiber - 1 Orally BID Activ e Multi Vitamin/Minerals - 1 Orally QD Active Gabapentin 600 MG TAKE 1/2 TABLET IN AM AND 1 TABLET AT BEDTIME Oral for 30 Active Dicyclomine HCl 10 MG 2 capsules Orally Four times a day Started 02/09/2023 Active oxyCODONE HCl 5 MG (Schedule II Drug) TAKE 1 TO 2 TABLETS EVERY 4 HOURS NEEDED FOR PAIN Oral for 3 Active Tamsulosin HCl 0.4 MG 1 capsule Orally Once a day Active Lansoprazole 30 MG 1 Orally Twice a day for 30 day(s) 02/12/2023 Active Lansoprazole 30 MG 1 capsule Orally BID as of 02/08/2023 Was QD until 02/08/2023 Active dilTIAZem HCl ER 240 MG 1 capsule on an empty stomach in the morning Orally Once a day Active SOCIAL HISTORY Tobacco Use: Social History Observation Description Date Details (start date - stop date) Former Smoker NA - NA Sex Assigned At : Social History Observation Description Sex Assigned At Unknown Tobacco Use/Smoking Question Answer Notes Patient is a former smoker When did you start smoking? 40 years ago How long has it been since you last smoked? > 10 years Alcohol Screen Question Answer Notes Did you have a drink contain ing alcohol in the past year? Yes How often did you have a dri nk containing alcohol in the past year? Monthly or less (1 point) How many drinks did you have on a typical day when you were drinking in the past year? 1 or 2 drinks (0 point) How often did you have 6 or more drinks on one occasion in the past year? Never (0 point) Points 1 Interpretation Negative PROBLEMS Problem Type ICD Code Onset Dates Problem Status W/U Status Risk SNOMED Code Notes Problem Hx of adenomatous colonic polyps (Z86.010) Active confirmed 629233518 Problem Gastroesophageal reflux disease without esophagitis (K21.9) Active confirmed 857745362 Problem Encounter for screening for malignant neoplasm of colon (Z12.11) Active confirmed 702517057 Problem Epigastric pain (R10.13) Active confirmed 95239481 Problem Iron deficiency anemia, unspecified iron deficiency anemia type (D50.9) Active confirmed 45619340 Problem Acute gastric ulcer without hemorrhage or perforation (K25.3) Active confirmed 97957155 Problem Epigastric abdominal pain (R10.13) Active confirmed 73174715 Problem Pancreatic abnormality (Q45.3) Active confirmed 2047797 Problem Abnormal ultrasound of abdomen (R93.5) Active confirmed [id number] Problem Gastric ulcer (K25.9) Active confirmed Gastric ulcer (486088659) Problem Iron deficiency anemia (D50.9) Active confirmed Iron deficien cy anemia (41791426) Problem Iron deficiency anemia due to chronic blood loss (D50.0) Active confirmed 622131845 Encounters Encounter Location Date Provider Diagnosis [facility] [address] [place] [phone] 02/12/2023 Brooks Barbour Hiatal hernia K44.9 ; Gastric ulcer K25.9 ; Abdominal pain, generalized R10.84 and Iron deficiency anemia D50.9 [facility] [address] [place] [phone] 02/09/2023 Brooks Barbour Epigastric pain R10.13 and Iron deficiency anemia, unspecified iron deficiency anemia type D50.9 [facility] [address] [place] [phone] 04/12/2023 Brooks Barbour [facility] [address] [place] [phone] 02/08/2023 Brooks Barbour [facility] [address] [place] [phone] 02/09/2023 Brooks Barbour [facility] [address] [place] [phone] 02/12/2023 Brooks Barbour Acute gastric ulcer without hemorrhage or perforation K25.3 [facility] [address] [place] [phone] 02/18/2023 Brooks Barbour [facility] [address] [place] [phone] 02/20/2023 Brooks Barbour Epigastric abdominal pain R10.13 ; Pancreatic abnormality Q45.3 and Abnormal ultrasound of abdomen R93.5 [facility] [address] [place] [phone] 02/26/2023 Brooks Barbour [facility] [address] [place] [phone] 03/07/2023 Brooks Barbour [facility] [address] [place] [phone] 03/13/2023 Brooks Barbour [facility] [address] [place] [phone] 04/10/2023 Brooks Barbour Iron deficiency anemia due to chronic blood loss D50.0 [facility] [address] [place] [phone] 04/25/2023 Brooks Barbour ASSESSMENTS Encounter Date Diagnosis Assessment Notes Treatment Notes Treatment Clinical Notes 02/12/2023 Hiatal hernia (ICD-10 - K44.9) 02/12/2023 Gastric ulcer (ICD-10 - K25.9) 02/09/2023 Epigastric pain (ICD-10 - R10.13) Stop Eliquis and Ibuprofen as of today for the procedure on 02/12/2023 02/09/2023 Iron deficiency anemia, unspecified iron deficiency anemia type (ICD-10 - D50.9) 02/12/2023 Acute gastric ulcer without hemorrhage or perforation (ICD-10 - K25.3) 02/20/2023 Epigastric abdominal pain (ICD-10 - R10.13) 02/20/2023 Pancreatic abnormality (ICD-10 - Q45.3) 04/10/2023 Iron deficiency anemia due to chronic blood loss (ICD-10 - D50.0) 02/12/2023 Abdominal pain, generalized (ICD-10 - R10.84) 02/20/2023 Abnormal ultrasound of abdomen (ICD-10 - R93.5) 02/12/2023 Iron deficiency anemia (ICD-10 - D50.9) PLAN OF TREATMENT Pending Test Test Name Order Date BUN 02/20/2023 LIVER PROFILE 02/09/2023 IRON + IBC (FE) 04/10/2023 CBC w DIFF 02/09/2023 CBC w DIFF 04/10/2023 CA 19-9 02/20/2023 MRI ABD W&WO CONTRAST 02/20/2023 Creatinine 02/20/2023 Ferritin 04/10/2023 Future Test Test Name Order Date COLONOSCOPY 04/19/2017 UPPER GI ENDOSCOPY 02/09/2023 Next Appt Details Provider Name:Brooks Barbour , 06/05/2023 02:40:00 PM, [address], [address], [place], [address], Insurance Providers Payer Name Payer Address Payer Phone Subscriber Number Group Number Insured Name Patient Relationship to Insured Coverage Start Date Coverage End Date MEDICARE OF [place] [address] [place] [address] [id number] CASEY RUIZ Self - patient is the insured [employer] ATT[employer] CLAIMS [address] [place] [address] [phone] [id number] CASEY RUIZ Self - patient is the insured MEDICAL (GENERAL) HISTORY Medical History History ICD Code Denies AR,DM,CVA,Lung disease,renal dise ase GERD-EGD in 1999--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 pylori HTN Screening colonoscopy--1 sma ll tubular adenoma-removed in 2008--he also had diverticulosis and internal hemorrhoids Neuropathy Pulmonary emboli--previously on Coumadin Screening colonoscopy in Apr with removal of a small tubular adenoma Atrial fibrillation-sees Dr. Mata Chronic back pain Iron deficiency anemia in the fall Surgical History Surgery Date(Month/Year) Right knee replacement 2011 Left knee replacement 2011 Left knee taken out due to infection and replaced 2013 Back fusion surgery Hernia repair--umbilical-Dr. Hansen 2017 Broken left leg with pins 2000 Hospitalization History Reason Date(Month/Year) As above
[2023-04-25 23:04] VITALS: BP 165/85; PULSE 51; RESP 14; TEMP 37.1; O2SAT 98
--- NOTE | 2023-04-25 23:05 | MHC.EDTECH ---
This pct just assumed care of patient ,vitals taken ,patient was hooked up to vehicle monitor technician ,Patient waiting to see Provider .
== END 2023-04-26 02:21 | disposition home or self-care (01) ==
PROVIDERS: Physician Assistant Medical; Emergency Provider Emergency Medicine; PCP Family Medicine
DX: R10.9 Unspecified abdominal pain (principal); I10 Essential (primary) hypertension; E78.00 Pure hypercholesterolemia, unspecified; I48.0 Paroxysmal atrial fibrillation; Z86.718 Personal history of other venous thrombosis and embolism; G89.4 Chronic pain syndrome; Z79.891 Long term (current) use of opiate analgesic; Z79.82 Long term (current) use of aspirin
CPT/HCPCS: 36415; 71046; 74176; 80048; 80053; 80076; 81003; 83690; 84484; 85025; 85610; 93005; 99284

== ENCOUNTER → 2023-04-25 18:10 | Outpatient (BNV) | payer MEDICARE, SELFPAY | PROVIDERS: Emergency Provider Emergency Medicine; PCP Family Medicine; Visit Provider Internal Medicine Cardiovascular Disease | DX: R94.31 Abnormal electrocardiogram [ECG] [EKG] (principal) | CPT/HCPCS: 93010 ==

== ENCOUNTER 2023-05-07 14:31 | Outpatient (REF) | payer MEDICARE, SELFPAY ==
--- NOTE | ~2023-05-07 | XR_ITS ---
EXAMINATION: XR AP STANDING BILATERAL KNEES XR KNEE, LEFT CLINICAL INFORMATION: Pain in unspecified knee. COMPARISON: 11/30/2017 radiographs. TECHNIQUE: AP standing view of bilateral knees. Lateral and sunrise views of the left knee. FINDINGS: LEFT KNEE: Redemonstration of total knee arthroplasty. Hardware appears intact. Alignment preserved. Redemonstration of small joint effusion and heterotopic bone/calcification along the knee joint. AP STANDING VIEW OF THE RIGHT KNEE: Similar positioning and alignment of the right total knee arthroplasty on the single AP view. XR/XR knee standing BI IMPRESSION: Redemonstration of left total knee arthroplasty. Hardware appears intact. Alignment preserved. Redemonstration of small joint effusion and heterotopic bone/calcification along the knee joint.
--- NOTE | ~2023-05-07 | XR_ITS ---
EXAMINATION: XR AP STANDING BILATERAL KNEES XR KNEE, LEFT CLINICAL INFORMATION: Pain in unspecified knee. COMPARISON: 11/30/2017 radiographs. TECHNIQUE: AP standing view of bilateral knees. Lateral and sunrise views of the left knee. FINDINGS: LEFT KNEE: Redemonstration of total knee arthroplasty. Hardware appears intact. Alignment preserved. Redemonstration of small joint effusion and heterotopic bone/calcification along the knee joint. AP STANDING VIEW OF THE RIGHT KNEE: Similar positioning and alignment of the right total knee arthroplasty on the single AP view. XR/XR knee LT 2V IMPRESSION: Redemonstration of left total knee arthroplasty. Hardware appears intact. Alignment preserved. Redemonstration of small joint effusion and heterotopic bone/calcification along the knee joint.
== END 2023-05-07 14:32 | disposition home or self-care (01) ==
LOC: HO.HOSX 14:31
PROVIDERS: Visit Provider Orthopaedic Surgery
DX: T84.84XA Pain due to internal orthopedic prosthetic devices, implants and grafts, initial encounter (principal); Z96.652 Presence of left artificial knee joint
CPT/HCPCS: 36415; 73560; 73565; 85652; 86140; 99202

== ENCOUNTER 2023-05-07 14:33 | Outpatient (AMB) | payer MEDICARE, SELFPAY ==
--- NOTE | 2023-05-07 14:58 | A.OFFVIS_ITS ---
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 Pt states he started having pain a couple weeks ago without any known injury. Pt states the pain occurs when he is walking and its more on the left side of his knee.Pt states he had a TKA in 2012 and a revision in 2014. 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 He reports pain primarily in the lateral aspect of his left knee, which occurs mostly with walking but also other daily activities. He says his pain has been present for several weeks. He denies any falls or known injury. He has a hx of a left TKA in 2011, and a revision for infection [place] [address] Bobo. He is worried that his knee is infected as he has been having pain and sweliing. He denies injury. He denies fever and chills [facility] Medical History Hx of skin cancer, basal cell Back pain Arthritis GERD (gastroesophageal reflux disease) Elevated cholesterol HTN (hypertension) DVT (deep venous thrombosis) Pulmonary embolism Mild ascending aorta dilatation Right bundle branch block Paroxysmal atrial fibrillation Surgical History (Updated 05/07/23 @ 15:13 by Enmanuel Burgess MD) History of esophagogastroduodenoscopy (EGD) H/O colonoscopy History of right inguinal hernia repair (08/16/22) History of left knee replacement History of umbilical hernia repair (03/13/17) History of revision of total knee arthroplasty History of total knee arthroplasty History of tonsillectomy History of spinal fusion (~04/14/20) History of cardiac catheterization (~09/23/14) Family History Father Pancreatic cancer Mother Alzheimer disease Social History Are you a primary aged or disabled care worker to a significant other at home: No Do you presently have visiting nurse or other home services: No Alcohol intake: never Patient Tobacco Use Status: Former Tobacco user Quit Date: 40 yrs ago Review of Systems Const All systems reviewed & are unremarkable except as noted in HPI and below Physical Exam Const General: no acute distress, alert and awake Orientation/consciousness: patient oriented x3 HEENT Head: Yes normocephalic and Yes atraumatic Mouth: moist mucous membranes Eyes General: appearance normal, both eyes and all related structures EOM: EOMs intact bilaterally Chest Other: no audible wheezing. Resp Other: No audible wheezing Effort & Inspection: normal respiratory effort and able to speak in complete sentences Cardio Other: Radial pulse palpable with no rythmic abnormalities Jugular venous distension: no JVD Back/Spine/Pelvis Cervical Spine: normal cervical lordosis Skin General skin exam: turgor normal Rashes: no rashes Neuro General: patient oriented x3 Extrem Other: Left knee with mild to moderate effuion with no warmth or eythema. There is no pain with ROM. Psych Appearance: grossly normal Mental Status: mental status grossly normal Speech and movement: Normal speech and movement present Affect: normal affect Attitude: cooperative Results Reviewed Results Reviewed: I personally reviewed relevant radiographs. S/p revision left knee with no evidence of hardware failure or loosening. Labs: ESR and CRP and WBC WNL Assessment & Plan Assessment & Plan (1) History of revision of total knee arthroplasty: Comment: Chika Singleton MD (removal of hardware)-2013 Code(s): Z96.659 - Presence of unspecified artificial knee joint Plan: No evidence of infection. Discussed possibility but given negative inflammatory markers it is exceedingly rare. He will see me if he does not improve but no intervention currently warranted Plan Prepared for Enmanuel Burgess MD by Quinn White, medical territory manager, on 05/07/23 at 3:10 PM, EST. Orders: Orders XR knee standing BI 05/07/23 M25.569 - Pain in unspecified knee XR knee LT 2V 05/07/23 M25.569 - Pain in unspecified knee Erythrocyte Sedimentation Rate 05/07/23 Z96.659 - Presence of unspecified artificial knee joint C Reactive Protein 05/07/23 Z96.659 - Presence of unspecified artificial knee joint Coding Level of Care Code New Pt Level 4 (58507) Diagnoses History of revision of total knee arthroplasty Z96.659
== END 2023-05-07 15:15 | disposition home or self-care (01) ==
PROVIDERS: PCP Family Medicine; Visit Provider Orthopaedic Surgery
DX: M25.562 Pain in left knee (principal); Z96.652 Presence of left artificial knee joint
CPT/HCPCS: 99203

== ENCOUNTER 2023-05-07 15:24 | Outpatient (REF) | payer MEDICARE, SELFPAY ==
[2023-05-07 17:38] LABS: C Reactive Protein 0.17 mg/dL (< or = 0.50)
[2023-05-07 17:55] LABS: Erythrocyte Sedimentation Rate 5 MM/HR (0-15)
== END 2023-05-07 15:25 | disposition home or self-care (01) ==
LOC: HO.LAB 15:24
PROVIDERS: PCP Family Medicine; Visit Provider Orthopaedic Surgery
DX: Z13.89 Encounter for screening for other disorder (principal)
CPT/HCPCS: 36415; 85652; 86140

== ENCOUNTER 2023-06-13 10:13 | Outpatient (AMB) | payer MEDICARE, SELFPAY ==
--- NOTE | 2023-06-13 10:15 | MHC.OFFVIS ---
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: No Accompanied by: Self / Same As Patient Allergies almond Allergy (Mild, Verified 06/13/23 10:17) THROAT ITCHING sertraline Adverse Reaction (Severe, Verified 06/13/23 10:17) unresponsive Medication List - Last Reconciled 06/13/23 by Kyler Mata MD apixaban (Eliquis) 5 mg PO BID cyclobenzaprine 10 mg PO BEDTIME diltiazem HCl 240 mg PO DAILY finasteride 5 mg PO QAM gabapentin 600 mg PO BEDTIME lansoprazole 30 mg PO DAILY magnesium oxide 400 mg PO DAILY memantine 10 mg PO DAILY multivitamin 1 tab PO DAILY oxycodone 5 mg PO Q8H PRN tamsulosin 0.4 mg PO BEDTIME wheat dextrin (Benefiber Sugar Free (dextrin)) 1 packet PO DAILY HPI HPI Comments History of Present Illness Details William returns for follow-up regarding atrial fibrillation. To recall, we had seen him originally in 2014. At that time, he was complaining of shortness of breath and chest tightness. He underwent cardiac catheterization that showed mild disease in LAD, but otherwise unremarkable coronaries. It was felt that his symptoms were noncardiac. The last few years, he has been having episodes of atrial fibrillation rapid rate. He is maintained on diltiazem/Eliquis. History of beta-viet intolerance. Overall, seems to be generally doing okay and has not had any recent atrial fibrillation episodes. No other cardiac complaints. [facility] Medical History (Updated 06/13/23 @ 10:38 by Kyler Mata MD) Hx of skin cancer, basal cell Back pain Arthritis GERD (gastroesophageal reflux disease) Elevated cholesterol HTN (hypertension) DVT (deep venous thrombosis) Pulmonary embolism Mild ascending aorta dilatation Right bundle branch block Paroxysmal atrial fibrillation Surgical History History of esophagogastroduodenoscopy (EGD) H/O colonoscopy History of right inguinal hernia repair (08/16/22) History of left knee replacement History of umbilical hernia repair (03/13/17) History of revision of total knee arthroplasty History of total knee arthroplasty History of tonsillectomy History of spinal fusion (~04/14/20) History of cardiac catheterization (~09/23/14) Family History Father Pancreatic cancer Mother Alzheimer disease Social History Are you a primary complex care nurse to a significant other at home: No Do you presently have visiting nurse or other home services: No Alcohol intake: never Patient Tobacco Use Status: Former Tobacco user Quit Date: 40 yrs ago Review of Systems Const Denies weakness ENT Denies dizziness Card Denies chest pain, Denies chest pain with activity, Denies syncope, Denies rapid heart rate, Denies pedal edema, Denies edema, Denies leg edema, Denies lightheadedness, Denies palpitations, Denies dyspnea, Denies dyspnea on exertion and Denies orthopnea Resp Denies cough, Denies dyspnea and Denies dyspnea on exertion GI Denies hematochezia and Denies change in stool character Musc Denies abnormal gait, Denies muscle cramps, Denies muscle weakness, Denies numbness, Denies radiating pain into limb and Denies tingling Neuro Denies abnormal gait, Denies dizziness, Denies syncope, Denies numbness, Denies tingling and Denies weakness Endo Denies palpitations Physical Exam Vital Signs: Last Vital Signs Pulse 75 06/13/23 10:17 BP 130/80 06/13/23 10:17 BMI result Body Mass Index 30.8 Const General: comfortable and no acute distress Orientation/consciousness: patient oriented x3 HEENT Other: Unremarkable Head: Yes normal to inspection Neck Neck: Yes normal visual inspection Chest Chest palpation & inspection: normal inspection of the chest Resp Auscultation: clear to auscultation bilaterally Cardio Palpation: normal PMI Heart sounds: S1 normal heart sound present, S2 normal heart sound present, no gallops, no murmurs and no rubs GI Palpation (GI): Soft to palpation Back/Spine/Pelvis Other: unremarkable Skin General skin exam: no rashes or lesions noted Neuro General: patient oriented x3 Extrem General: Yes normal to inspection Psych Mental Status: mental status grossly normal Assessment & Plan Assessment & Plan (1) Paroxysmal atrial fibrillation: Code(s): I48.0 - Paroxysmal atrial fibrillation Plan: Stable. Remains on diltiazem/Eliquis. (2) Right bundle branch block: Code(s): I45.10 - Unspecified right bundle-branch block Plan: Stable. Most recent EKG from April shows sinus rhythm with right bundle-branch block pattern. (3) Mild ascending aorta dilatation: Code(s): I77.810 - Thoracic aortic ectasia Plan: In the CTA from March, ascending aortic size 4.2 cm the tubular segment and 4.5 cm in the sinuses. Overall stable in the last few years. Will follow with an echocardiogram in 1 year. (4) HTN (hypertension): Code(s): I10 - Essential (primary) hypertension Plan: There are some high readings recorded but when I reviewed the home diary, mostly in the normal range. No specific changes needed at this time. Importance of blood pressure regulation discussed in the setting of aortic dilatation. Orders: Orders CA echo transthoracic complete 1 Year I77.810 - Thoracic aortic ectasia Coding Level of Care Code Est Pt Level 4 (45080) Diagnoses Paroxysmal atrial fibrillation I48.0 Right bundle branch block I45.10 Mild ascending aorta dilatation I77.810 HTN (hypertension) I10
[2023-06-13 10:17] VITALS: BP 130/80; PULSE 75; BMI 30.8
== END 2023-06-13 10:31 | disposition home or self-care (01) ==
PROVIDERS: PCP Family Medicine; Visit Provider Internal Medicine
DX: I48.0 Paroxysmal atrial fibrillation (principal); I45.10 Unspecified right bundle-branch block; I77.810 Thoracic aortic ectasia; I10 Essential (primary) hypertension
CPT/HCPCS: 99214

== ENCOUNTER → 2023-06-13 10:13 | Outpatient (BNVA) | payer MEDICARE, SELFPAY | PROVIDERS: PCP Family Medicine; Visit Provider Internal Medicine | DX: I48.0 Paroxysmal atrial fibrillation (principal); I45.10 Unspecified right bundle-branch block; I77.810 Thoracic aortic ectasia; I10 Essential (primary) hypertension | CPT/HCPCS: 99212 ==

== ENCOUNTER 2023-07-03 14:06 | Outpatient (REF) | payer MEDICARE, SELFPAY ==
--- NOTE | ~2023-07-03 | XR_ITS ---
EXAMINATION: XR CERVICAL SPINE CLINICAL INFORMATION: Neck pain. COMPARISON: Chest radiograph of 04/25/2023. TECHNIQUE: 7 views of the cervical spine. FINDINGS: Spinal stabilization hardware partially imaged in the visualized upper thoracic spine. Straightening of the normal cervical lordosis. Multilevel cervical spondylosis with [id number] hypertrophic change and loss of disc space height at C5-C6 and C6-C7. C7 poorly visualized due to overlying soft tissues. Bilateral multilevel facet arthritis and neural foraminal encroachment at C5-C6 and C6-C7. XR/XR cervical spine 5V IMPRESSION: Multilevel cervical spondylosis most notable at C5-C6 and C6-C7.
== END 2023-07-03 14:07 | disposition home or self-care (01) ==
LOC: HO.XRAY 14:06
PROVIDERS: PCP Family Medicine; Visit Provider Family Medicine
DX: M54.2 Cervicalgia (principal)
CPT/HCPCS: 72050

== ENCOUNTER 2023-09-10 06:30 | Day surgery (SDC) | payer MEDICARE, SELFPAY ==
--- NOTE | 2023-09-07 09:18 | P.CONAN_ITS ---
Documented by User: Breanne Romero NP 09/07/23 09:20 HPI - Anesthesia Eval Consult details Narrative: 72yo M for Upper Endoscopy and Colonoscopy Follows [facility] [place] cardiology for afib (Eliquis), RBBB, htn. Stable at 06/2023 office visit. [facility] Active Problems Active Problems: All Active Problems HTN (hypertension) (Acute) History of revision of total knee arthroplasty (Acute) Right inguinal hernia (Acute) Chronic thoracic spine pain (Acute) Status post laminectomy with spinal fusion (Acute) Preoperative cardiovascular examination (Acute) Arterial hypotension (Acute) Mild ascending aorta dilatation (Acute) Right bundle branch block (Acute) Paroxysmal atrial fibrillation (Acute) Past Medical History Medical History Hx of skin cancer, basal cell Back pain Arthritis GERD (gastroesophageal reflux disease) Elevated cholesterol HTN (hypertension) DVT (deep venous thrombosis) Pulmonary embolism Mild ascending aorta dilatation Right bundle branch block Paroxysmal atrial fibrillation Family History Family History Father Pancreatic cancer Mother Alzheimer disease Family history of problems with anesthesia: No Surgical History Surgical History History of esophagogastroduodenoscopy (EGD) H/O colonoscopy History of right inguinal hernia repair (08/16/22) History of left knee replacement History of umbilical hernia repair (03/13/17) History of revision of total knee arthroplasty History of total knee arthroplasty History of tonsillectomy History of spinal fusion (~04/14/20) History of cardiac catheterization (~09/23/14) History of Problems with Anesthesia: No Social History Social History Are you a primary child caregiver private home to a significant other at home: No Do you presently have visiting nurse or other home services: No Alcohol intake: never Patient Tobacco Use Status: Former Tobacco user Use of substances other than those prescribed or required for medical reasons: No Advance Directives: No Advance Directives Information Provided: Yes Meds Allergies Allergy/AdvReac Type Severity Reaction Status Date / Time almond Allergy Mild THROAT Verified 06/13/23 10:17 ITCHING sertraline AdvReac Severe unresponsiv Verified 06/13/23 10:17 e Home Medications ?Medication ?Instructions ?Recorded ?Confirmed ?Last Taken ?Type lansoprazole 30 mg capsule,delayed 30 mg PO DAILY 03/18/20 09/10/23 09/09/23 History release multivitamin 1 tab PO DAILY 03/18/20 09/10/23 09/09/23 History tamsulosin 0.4 mg capsule 0.4 mg PO BEDTIME 03/18/20 09/10/23 09/09/23 History gabapentin 600 mg tablet 600 mg PO BEDTIME 04/17/22 09/10/23 09/09/23 History cyclobenzaprine 10 mg tablet 10 mg PO BEDTIME 07/27/22 06/13/23 Unknown History finasteride 5 mg tablet 5 mg PO QAM 08/09/22 09/10/23 09/09/23 History magnesium oxide 400 mg PO DAILY 08/09/22 09/10/23 09/09/23 History wheat dextrin 3 gram/4 gram oral 1 packet PO DAILY 08/09/22 06/13/23 Unknown History powder (Benefiber Sugar Free (dextrin)) oxycodone 5 mg capsule 5 mg PO Q8H PRN Pain 10/10/22 06/13/23 02/12/23 10:00 History memantine 10 mg tablet 10 mg PO DAILY 05/07/23 09/10/23 09/09/23 History Iron (ferrous sulfate) 09/07/23 09/07/23 Unknown History Exam Narrative Narrative: EKG 04/2023 Vent. Rate : 062 BPM Atrial Rate : 062 BPM P-R Int : 168 ms QRS Dur : 138 ms QT Int : 438 ms P-R-T Axes : 022 -28 004 degrees QTc Int : 444 ms Normal sinus rhythm Right bundle branch block Abnormal ECG When compared with ECG of 25-FEB-2022 19:33, No significant change was found ECHO 2022 Conclusions: - The left ventricular systolic function is normal. The calculated ejection fraction is 63% by biplane method. - No obvious valvular pathology seen on this study. - There is mild dilatation of the sinuses of Valsalva measuring 4.43 cm and mild dilatation of the ascending aorta measuring 4.50 cm. CTA 03/2023 aortic size 4.2 cm the tubular segment and 4.5 cm in the sinuses. Overall stable in the last few years. Assessment and Plan Assessment Anesthesia Assessment: Chart Reviewed Final Anesthetic Review Family History of Problems with Anesthesia: No History of Problems with Anesthesia: No Documented by User: Amber Carr MD 09/10/23 08:32 PMF Active Problems Active Problems: All Active Problems HTN (hypertension) (Acute) History of revision of total knee arthroplasty (Acute) Right inguinal hernia (Acute) Chronic thoracic spine pain (Acute) Status post laminectomy with spinal fusion (Acute) Preoperative cardiovascular examination (Acute) Arterial hypotension (Acute) Mild ascending aorta dilatation (Acute) Right bundle branch block (Acute) Paroxysmal atrial fibrillation (Acute). SB today. Last dose of eliquis 09/06/23 Past Medical History Medical History Hx of skin cancer, basal cell Back pain Arthritis GERD (gastroesophageal reflux disease) Elevated cholesterol HTN (hypertension) DVT (deep venous thrombosis) Pulmonary embolism Mild ascending aorta dilatation Right bundle branch block Paroxysmal atrial fibrillation Family History Family History Father Pancreatic cancer Mother Alzheimer disease Family history of problems with anesthesia: No Surgical History Surgical History History of esophagogastroduodenoscopy (EGD) H/O colonoscopy History of right inguinal hernia repair (08/16/22) History of left knee replacement History of umbilical hernia repair (03/13/17) History of revision of total knee arthroplasty History of total knee arthroplasty History of tonsillectomy History of spinal fusion (~04/14/20) History of cardiac catheterization (~09/23/14) History of Problems with Anesthesia: No Social History Social History Are you a primary child caregiver private home to a significant other at home: No Do you presently have visiting nurse or other home services: No Alcohol intake: never Patient Tobacco Use Status: Former Tobacco user Use of substances other than those prescribed or required for medical reasons: No Advance Directives: No Advance Directives Information Provided: Yes Meds Allergies Allergy/AdvReac Type Severity Reaction Status Date / Time almond Allergy Mild THROAT Verified 06/13/23 10:17 ITCHING sertraline AdvReac Severe unresponsiv Verified 06/13/23 10:17 e Home Medications ?Medication ?Instructions ?Recorded ?Confirmed ?Last Taken ?Type lansoprazole 30 mg capsule,delayed 30 mg PO DAILY 03/18/20 09/10/23 09/09/23 History release multivitamin 1 tab PO DAILY 03/18/20 09/10/23 09/09/23 History tamsulosin 0.4 mg capsule 0.4 mg PO BEDTIME 03/18/20 09/10/23 09/09/23 History gabapentin 600 mg tablet 600 mg PO BEDTIME 04/17/22 09/10/23 09/09/23 History cyclobenzaprine 10 mg tablet 10 mg PO BEDTIME 07/27/22 06/13/23 Unknown History finasteride 5 mg tablet 5 mg PO QAM 08/09/22 09/10/23 09/09/23 History magnesium oxide 400 mg PO DAILY 08/09/22 09/10/23 09/09/23 History wheat dextrin 3 gram/4 gram oral 1 packet PO DAILY 08/09/22 06/13/23 Unknown History powder (Benefiber Sugar Free (dextrin)) oxycodone 5 mg capsule 5 mg PO Q8H PRN Pain 10/10/22 06/13/23 02/12/23 10:00 History memantine 10 mg tablet 10 mg PO DAILY 05/07/23 09/10/23 09/09/23 History Iron (ferrous sulfate) 09/07/23 09/07/23 Unknown History Exam Height,Weight and Vital Signs: Height 6 ft 3 in Weight 104.326 kg Vital Signs Temp Pulse Resp BP Pulse Ox O2 Del Method 09/10/23 08:01 97.0 F 56 16 147/90 H 97 Room Air Airway Mallampati Class: III TM Dist: >3cm Neck ROM: Limited (Sore) Loose/Missing/Broken Teeth: No (Denies broken, loose, missing teeth) Heart: RRR Lungs: CTAB Assessment and Plan Assessment Anesthesia Assessment: Anesthesia Plan Discussed and Chart Reviewed Final Anesthetic Review Family History of Problems with Anesthesia: No History of Problems with Anesthesia: No NPO: Yes ASA Class: III Final Preanesthetic Review: No Changes in Pt Med Stat, Meds/Allgs Chart Reviewed, Consent Obtained/Reviewed and Anes Risks/Benef Reviewed Patient Risk: Intermediate Procedure Risk: Low Assessment/Block/Sedation in SS: Assess/Block/Sedation-SS Anesthetic Plan Anesthetic Plan: GA and TIVA Disposition: Standard PACU
[2023-09-10 07:41] VITALS: BMI 28.7
[2023-09-10 08:01] VITALS: BP 147/90; PULSE 56; RESP 16; TEMP 36.1; O2SAT 97
[2023-09-10] MEDS: Lactated Ringers 1,000 ML 100 ML IVCONT (08:03)
[2023-09-10 09:34] VITALS: BP 98/63; PULSE 48; RESP 14; TEMP 36.1; O2SAT 95
--- NOTE | 2023-09-10 09:39 | PM.OP ---
Brief Operative Note Date of Service: 09/10/23 Pre-op diagnosis: Gastric ulcer, Screening Post-op diagnosis: other (Hiatal hernia, Colon polyps) Procedure: EGD, Colonoscopy to the cecum and TI with hot snare polypectomy x 2 and placement of 1 Resolution clip x 2 Surgeon: Brooks Barbour MD Anesthesia: MAC Was an Plant Taxonomist used for this Procedure?: No Estimated blood loss (mL): 0 Pathology: other (A. Cecal polyp B. Transverse colon polyp) Condition: stable Disposition: PACU
[2023-09-10 09:49] VITALS: BP 127/81; PULSE 47; RESP 16; TEMP 36.1; O2SAT 97
--- NOTE | 2023-09-10 10:48 | OP_ITS ---
DATE OF SERVICE: 09/10/2023 SURGEON: Brooks Barbour MD INDICATIONS: The patient presents for evaluation of previous gastric ulcer, personal history of colon polyps, and colorectal cancer screening. Full consent was obtained from him for this, including risks of bleeding and perforation. PREOPERATIVE DIAGNOSIS: POSTOPERATIVE DIAGNOSIS: PROCEDURE PERFORMED: Esophagogastroduodenoscopy and colonoscopy to the cecum and terminal ileum with hot snare polypectomy x2 with placement of a single resolution clip on each polypectomy site. ESTIMATED BLOOD LOSS: COMPLICATIONS: ANESTHESIA: Monitored anesthesia care. ASSISTANTS: SPECIMENS: PREOPERATIVE DIAGNOSES: History of gastric ulcer, history of colon polyps, colorectal cancer screening. POSTOPERATIVE DIAGNOSES: History of gastric ulcer, history of colon polyps, colorectal cancer screening, healed gastric ulcer, minimal changes of gastritis, small hiatal hernia, colon polyps, diverticulosis, and internal hemorrhoids. DESCRIPTION OF PROCEDURE: The patient was placed in the left lateral decubitus position. The Olympus video-gastroscope was passed in the posterior oropharynx and upper esophagus under direct vision. The scope was passed slowly into the distal esophagus. The gastroesophageal junction appeared normal at 38 cm. There was no sign of any esophagitis. The scope entered the stomach. There was a small hiatal hernia. The scope was advanced to pylorus and the duodenum was cannulated to the descending portion. The duodenum including the bulb appeared normal without mass or ulceration. The scope was withdrawn back in the stomach. The gastric antrum had some minimal changes of erythema and 1 small area of some scarring, but no evidence of any ulceration nor mass. There was good peristalsis. The scope was retroflexed, visualizing the proximal stomach carefully, which appeared normal, without any sign of mass or ulceration. The scope was straightened. I did not obtain gastric biopsies as previous biopsies have been negative for H pylori. The scope was withdrawn back in the esophagus. The esophageal mucosa appeared normal. The scope was withdrawn from the patient. He was turned around for colonoscopy. The digital rectal exam revealed no abnormalities. The Olympus video-pediatric colonoscope was entered into the rectum and advanced easily to the cecum. Once in the cecum, I did identify cecal pouch with appendiceal orifice and a normal-appearing ileocecal valve. The terminal ileum was cannulated and appeared normal. Scope was withdrawn back from the colon. The entire cecum was well visualized. In the cecum, there was an approximately 10-12 mm flat polyp, which was removed by hot snare polypectomy recovered by suction. The polypectomy site appeared clean, without any sign of residual polyp nor bleeding. A single resolution clip was applied with good deployment and good hemostasis. The scope was slowly withdrawn assessing all mucosal surfaces carefully. Preparation was excellent. In the transverse colon, there was a somewhat inflammatory appearing polyp of approximately 10 mm in size. This was removed by hot snare polypectomy and recovered by suction. The polypectomy site appeared clean, without any sign of residual polyp nor bleeding. A single resolution clip was applied with good deployment and good hemostasis. I did not visualize any other polyps, colitis, nor angiodysplasia. There was a mild amount of sigmoid diverticulosis. In the rectum, scope was retroflexed visualizing internal hemorrhoids, but no other pathology. The rectal mucosa appeared normal. Scope was straightened and withdrawn from the patient. He tolerated both procedures well and was returned to the recovery area in stable condition. IMPRESSION: 1. Healed gastric ulcer. 2. Small hiatal hernia. 3. Colon polyps. 4. Diverticulosis. 5. Internal hemorrhoids. PLAN: The results of the pathology will be checked. I would recommend a repeat colonoscopy in 5 years. He was advised to resume his Eliquis in 48 hours. He was advised to continue to avoid all aspirin and NSAIDs long-term and to continue his PPI due to the previous history of ulcer and anemia. He will see me in 1 year for a followup visit in regard to his previous pancreatic cyst as well. I would recommend a repeat colonoscopy in 5 years as well. This has been discussed with his . MD LIZET Bush/BERTHA / [id number]
== END 2023-09-10 10:34 | disposition home or self-care (01) ==
PROVIDERS: PCP Family Medicine; Visit Provider Internal Medicine
PROC: (CPT 43235; principal; 2023-09-10 08:30)
DX: K25.3 Acute gastric ulcer without hemorrhage or perforation (principal); K44.9 Diaphragmatic hernia without obstruction or gangrene; Z12.11 Encounter for screening for malignant neoplasm of colon; D12.0 Benign neoplasm of cecum; K51.40 Inflammatory polyps of colon without complications; K57.30 Diverticulosis of large intestine without perforation or abscess without bleeding; K64.8 Other hemorrhoids; Z86.010 Personal history of colon polyps; I10 Essential (primary) hypertension; E78.00 Pure hypercholesterolemia, unspecified; D50.9 Iron deficiency anemia, unspecified; K21.9 Gastro-esophageal reflux disease without esophagitis; K86.2 Cyst of pancreas; I48.0 Paroxysmal atrial fibrillation; I45.10 Unspecified right bundle-branch block; Z86.711 Personal history of pulmonary embolism; Z86.718 Personal history of other venous thrombosis and embolism; Z79.01 Long term (current) use of anticoagulants; Z79.899 Other long term (current) drug therapy
CPT/HCPCS: 43235; 45385; 88305; J2704

== ENCOUNTER 2023-11-15 10:05 | Outpatient (REF) | payer MEDICARE, SELFPAY ==
[2023-11-15 10:51] LABS: MANUAL DIFF FLAG NO
[2023-11-15 10:54] LABS: Basophils Percent Auto 0.5 % (0-2); Eosinophils Absolute Auto 0.1 X10*3/uL (0.0-0.4); Eosinophils Percent Auto 2.5 % (0-4); Hematocrit 42.2 % (42.0-52.0); Hemoglobin 14.2 g/dl (14.0-18.0); Imm Gran Abs Auto 0.01 X10*3/uL (0.00-0.03); Imm Gran Pct Auto 0.2 % (0.0-0.4); Lymphocytes Absolute Auto 1.1 X10*3/uL (1.2-4.9); Lymphocytes Percent Auto 25.6 % (20-40); Mean Corpuscular HGB Conc 33.6 g/dl (31.0-36.0); Mean Corpuscular Hemoglobin 29.1 pg (27.0-33.0); Mean Corpuscular Volume 86.5 fL (80.0-98.0); Mean Platelet Volume 9.7 fL (9.4-12.4); Monocytes Absolute Auto 0.4 X10*3/uL (0.1-1.2); Monocytes Percent Auto 8.7 % (2-11); Neutrophils Absolute Auto 2.7 x10*3/uL (2.0-8.3); Neutrophils Percent Auto 62.5 % (45-73); Platelet Count 209 X10*3/uL (160-400); Red Blood Count 4.88 X10*6/uL (4.60-5.80); Red Cell Distribution Width 13.3 % (11.0-16.0); White Blood Count 4.4 X10*3/uL (4.8-10.8)
[2023-11-15 11:25] LABS: Alanine Aminotransferase 13 U/L (0-40); Anion Gap 12 (12-20); Aspartate Amino Transferase 11 U/L (5-37); Blood Urea Nitrogen 20 mg/dL (9-16); Carbon Dioxide 27 mmol/L (22-29); Chloride 106 mmol/L (96-108); Estimated Glomerular Filt Rate > 60; Potassium 4.2 mmol/L (3.3-5.1); Sodium 141 mmol/L (135-145)
== END 2023-11-15 10:06 | disposition home or self-care (01) ==
LOC: HO.10HDL 10:05
PROVIDERS: Visit Provider Family Medicine
DX: I10 Essential (primary) hypertension (principal); D64.9 Anemia, unspecified; K75.81 Nonalcoholic steatohepatitis (NASH)
CPT/HCPCS: 36415; 80051; 82565; 84450; 84460; 84520; 85025

== ENCOUNTER 2023-12-12 10:17 | Outpatient (REF) | payer MEDICARE, SELFPAY ==
--- NOTE | ~2023-12-12 | XR_ITS ---
EXAMINATION: XR CERVICAL SPINE CLINICAL INFORMATION: Neck pain COMPARISON: None available. TECHNIQUE: 6 views of the cervical spine, inclusive of flexion and extension views, were obtained. FINDINGS: Prevertebral soft tissues are normal. There is advanced disc space narrowing with marginal spurring observed C5-6 and C6-7. There is mild encroachment on the right and left C6-7 neural foramen. Surgical hardware is seen overlying the upper T-spine. The lateral masses of C1 and odontoid are intact. XR/XR cervical spine 5V IMPRESSION: Multilevel degenerative change. Electronically signed by: Robbi Hamilton MD 12/12/2023 11:45 AM EDT
== END 2023-12-12 10:18 | disposition home or self-care (01) ==
LOC: HO.XRAY 10:17
PROVIDERS: PCP Family Medicine; Visit Provider Family Medicine
DX: M54.2 Cervicalgia (principal)
CPT/HCPCS: 72050

== ENCOUNTER → 2024-06-12 07:50 | Outpatient (REF) | payer MEDICARE, SELFPAY ==
--- NOTE | 2024-06-12 07:53 | CA_ITS ---
Transthoracic Echocardiogram Patient (Last, First, Middle): William Sanon G Gender: Male Date of : 1950 Age: 73 Procedure Date: 06/12/2024 Procedure Type: Transthoracic Echocardiogram Location: OP Height: 187. cm Weight: 108.86 kg BSA: 2.34 m2 Heart Rate: bpm BP: 118 / [address] Monitor: ANAIS Referring MD: Kyler Mata MD Symptoms: I77.810 - Thoracic aortic ectasia Study Quality: Adequate w contrast ECG Rhythm: Sinus Conclusions: - The left ventricular systolic function is normal. The calculated ejection fraction is 60% by biplane method. - No obvious valvular pathology seen on this study. - There is mild dilatation of the ascending aorta measuring 4.30 cm. Findings Procedure Information Contrast agent, definity, is being given per protocol without apparent complications. Left Ventricle Normal left ventricular cavity size. The left ventricular systolic function is normal. The calculated ejection fraction is 60% by biplane method. There is no evidence of regional wall motion abnormalities. Diastolic function is normal for age. There is mild septal asymmetric hypertrophy. Right Ventricle Normal right ventricular cavity size and systolic function. Atria The left atrium is mildly dilated. The right atrium is normal in size. Aortic Valve There is a normal trileaflet aortic valve. There is no aortic valve stenosis. There is trace (trivial) aortic valve regurgitation. Mitral Valve The mitral valve appears normal. There is no mitral valve regurgitation. There is no mitral valve stenosis. Pulmonic Valve The pulmonic valve is likely normal. Tricuspid Valve There is trace tricuspid valve regurgitation. There is no evidence of pulmonary hypertension. Great Vessels There is mild dilatation of the ascending aorta measuring 4.30 cm. Venous The inferior vena cava is normal in size and collapses less than 50% with inspiration. Pericardium/Pleural There is no evidence of pericardial effusion. Prior Study Comparison Changes noted compared to prior study dated: 08/14/2022. Ascending aortic size lower than prior study; could be technical. Recommendations, Care & Conclusions No obvious valvular pathology seen on this study. Measurements 2D Linear Measurements IVSd: 1.14 0.6-0.9/0.6-1.0 cm LVIDd: 5.35 3.9-5.3/4.2-5.9 cm LVIDd Index: 2.29 2.4-3.2/2.2-3.1 cm/m2 LVIDs: 3.20 2.0-3.6 cm LVPWd: 1.00 0.7-1.1 cm LA Diam: 3.60 2.7-3.8/3.0-4.0 cm LAIDs Index: 1.54 1.5-2.3 cm/m2 LV Mass: 277.22 67-162/88-224 g LV Mass Index: 118.47 43-95/49-115 g/m2 LVOT Diam: 2.40 3.0+(-)1.3 cm 2D Systolic Function EF 4C: 54.80 >55% EF 2C: 66.20 >55% EF BiP: 60.20 >55% Mitral Valve MV Pk E: 0.92 MV PK A: 0.95 MV Decel Time: 175.00 E/A: 1.00 E'Lateral: 8.49 E'Medial: 8.16 E/E' Med: 11.30 E/E' Lat: 10.80 PHT: 51.00 MVA PHT: 4.31 Decel Dolores: 5.25 Aortic Valve AoV Pk Andre: 1.37 AoV Mn Andre: 0.96 AoV VTI: 0.32 AoV Pk Grad: 8.00 Aov Mn Grad: 4.00 JOHANNY Cont.VTI: 3.44 LVOT LVOT Pk Andre: 1.14 LVOT Mn Andre: 0.74 LVOT VTI: 0.24 LVOT Pk Grad: 5.00 LVOT Mn Grad: 3.00 LVOT Diam: 2.40 LVOT Area: 4.52 Diastolic Function MV Pk E: 0.92 MV Pk A: 0.95 E/A: 1.00 E'Medial: 8.16 E/E' Med: 11.30 E' Laterial: 8.49 E/E' Lat: 10.80 Right Ventricle TAPSE (mm): 19.70 TVS' Andre: 14.60 Tricuspid Valve TR Pk Andre: 1.32 TR Pk Grad: 7.00 RA Press: 8.00 RVSP: 15.00 Great Vessels Aorta Sinus of Valsalva: 4.00 2.0-3.5 cm Ao Asc: 4.30 2.1-3.4 cm Ao Arch: 3.40 Pulmonary Valve PV Pk Andre: 0.91 Peak PV Grad: 3.00 Updated in Other Vendor System with Status of Final Kyler Mata MD electronically signed on 06/14/2024 10:19:54 AM with status of Final
--- OUTSIDE RECORDS SUMMARY | 2024-06-12 07:53 | XMS_ITS | Patient Health Record ---
Author Organization [facility] Address [address] [place] [address] Care Team Providers Care Drapery Hand Name Role Phone Mayito WHITE, Glen Primary Care Provider Unavailab Brooks Robles [phone] Allergies Allergen (clinical drug ingredient) Drug/Non Drug Allergy documented on EMR Reaction Allergy Type Onset Date Status sertraline Sertraline Unknown Drug Allergy Activ e Results Component Value Reference Range Notes Pathology Reviewed date:01/22/2024 09:30:36 AM Interpretation: Performing Lab:[facility], [address] [place] [id number] Notes/Report: Name: Casey Sanon Age/Sex: 72/M : 1950 Unit#: [id number] Attend Dr: Brooks Barbour MD Re09/10/23 Status : [facility] Location: [facility] Disch: SPEC : [id number] REC STATUS: TETE MERINO NUM: [id number] [place]: 09/10/23-[address] [facility] [address]: Brooks Barbour MD ENTERED: 09/10/23-10 30 SP TYPE: Surgical OTHR DR: Glen Edmond MD ORDERED: HE Stain/6, Gross Micro L4/2 Diagnosis A. Cecum, polypectom y: Tubular adenoma; negative for high-grade dysplasia or carcinoma. B. Colon, transverse , polypectomy: Inflammatory polyp. Clinical History Pre-Op Dx: Screening , bleeding ulcer Post-Op Dx: Hiatal h ernia, colon polyps, diverticulosis and hemorrhoids Microscopic Description A, B. Microscopic se ctions reviewed. Material Received A. Cecal polyp B. Transverse colon polyp Gross Description Received in two parts. Part A: Received in formalin labeled ?cecal polyp? is a 0.4 cm congested and hemorrhagic, pink, red-maroon pap ular tissue fragment, submitted in toto in a cassette labeled A. Part B: Received in formalin labeled ?transverse colon polyp? is a 0.6 cm in greatest dimension hyperemic and congested, gomez, pink-red papular tissue fragment, submitted in toto in a cassette labeled B. CEDS Copies To: Glen Edmond MD [address] [place] [address] [address] [place] [address] Brooks Barbour MD [address] [place] [address] CONTINUED ON NEXT PAGE Name: Casey Sanon Age/Sex: 72/M : 1950 Unit#: [id number] Attend Dr: Brooks Barbour MD Re09/10/23 Status : [facility] Location: [facility] Disch: SPEC : [id number] RECD : 09/10/23 STATUS: TETE MERINO NUM: [id number] [place]: 09/10/23-[address] [facility] [address]: Brooks Barbour MD ENTERED: 09/10/23 SP TYPE: Surgical OTHR DR: Glen Edmond MD ORDERED: SAMANTHA Casanova/6, Gross Micro L4/2 Signed (si gnature on file) Adan Baer MD 09/12/23 1027 END OF REPORT Reason For Referral No Information Medications Medication SIG (Take, Route, Frequency, Duration) Notes Start Date End Date Status Multi Vitamin/Minerals - 1 Orally QD Active oxyCODONE HCl 5 MG (Schedule II Drug) TAKE 1 TO 2 TABLETS EVERY 4 HOURS NEEDED FOR PAIN Oral for 3 Active Lansoprazole 30 MG 1 capsule Orally BID as of 02/08/2023 Was QD until 02/08/2023 Active dilTIAZem HCl ER 240 MG 1 capsule on an empty stomach in the morning Orally Once a day Active MiraLax 17 GM/SCOOP 1 scoop mixed with 8 ounces of fluid Orally Once a day for 30 day(s) prn Active Gabapentin 300 MG Oral for 90 Active Magnesium 400 MG as directed Orally Active Lansoprazole 30 MG 1 Orally Twice a day for 30 day(s) 02/12/2023 Active Memantine HCl 10 MG PLEASE SEE ATTACHED FOR DETAILED DIRECTIONS Oral for 28 Active Finasteride 5 MG 1 tablet Orally Once a day Active Tamsulosin HCl 0.4 MG 1 capsule Orally Once a day Active Eliquis 5 MG 1 tablet Orally Twice a day for 30 day(s) Active Social History Tobacco Use: Social History Observation Description Date Details (start date - stop date) Former Smoker NA - NA Tobacco Use/Smoking Question Answer Notes Patient is a former smoker When did you start smoking? 40 years ago How long has it been since you last smoked? > 10 years Alcohol Screen Question Answer Notes Did you have a drink containing alcohol in the p ast year? No Points 0 Interpretation Negative Section Notes: Nonsmoker; no sig alcohol Nonsmoker; no sig alcohol Nonsmoker; no sig alcohol Nonsmoker; no sig alcohol Problems Problem Type SNOMED Code ICD Code Onset Dates Problem Status W/U Status Risk Notes Problem Colon cancer screening (783954938) Colon cancer screening (Z12.11) Active confirmed Problem 25807045 Epigastric abdominal pain (R10.13) Active confirmed Problem 48199227 Epigastric pain (R10.13) Active confirmed Problem 981971340 Encounter for screening for malignant neoplasm of colon (Z12.11) Active confirmed Problem 97853303 Acute gastric ulcer without hemorrhage or perforation (K25.3) Active confirmed Problem Right lower quadrant pain (068267655) Abdominal pain, bilateral lower quadrant (R10.31) Active confirmed Problem Iron deficiency anemia (98482589) Iron deficiency anemia (D50.9) Active confirmed Problem 746455983 Gastroesophageal reflux disease without esophagitis (K21.9) Active confirmed Problem 730900921 Iron deficiency anemia due to chronic blood loss (D50.0) Active confirmed Problem Pancreatic cyst (34737923) Pancreatic cyst (K86.2) Active confirmed Problem 26641957 Iron deficiency anemia, unspecified iron deficiency anemia type (D50.9) Active confirmed Problem 768110504 Hx of adenomatou s colonic polyps (Z86.010) Active confirmed Problem Gastric ulcer (923216289) Gastric ulcer (K25.9) Active confirmed Problem 80208905607644509 Abnormal ultrasound of abdomen (R93.5) Active confirmed Problem 2264010 Pancreatic abnormality (Q45.3) Active confirmed Problem Atrophic gastritis (80716474) Antral gastritis (K29.50) Active confirmed Vital Signs Blood pressure diastolic 00 mm Hg 01/22/2024 Height 75 in 01/22/2024 Blood pressure systolic 00 mm Hg 01/22/2024 Weight 247 lbs 01/22/2024 BMI 30.87 kg/m2 01/22/2024 Encounters Encounter Location Date Provider Diagnosis [facility] [address] [place] [phone] 09/10/2023 Brooks Barbour Encounter for screen ing colonoscopy Z12.11 ; Colon polyps K63.5 ; Hiatal hernia K44.9 and Antral gastritis K29.50 [facility] [address] [place] [phone] 01/22/2024 Brooks Barbour Gastroesophageal ref lux disease without esophagitis K21.9 ; Epigastric abdominal pain R10.13 ; Gastric ulcer K25.9 and Abdominal pain, bilateral lower quadrant R10.31 [facility] [address] [phone] 09/09/2023 Brooks Barbour [facility] [address] [address] 01/18/2024 Brooks Barbour Assessments Encounter Date Diagnosis (ICD Code) Assessment Notes Treatment Notes Treatment Clinical Notes Section Notes 09/10/2023 Encounter for screening colonoscopy (ICD-10 - Z12.11) 09/10/2023 Colon polyps (ICD-10 - K63.5) 01/22/2024 Epigastric abdominal pain (ICD-10 - R10.13) Overall, Mr. Sanon appears quite well and does not appear to be having any worrisome GI symptoms at the present time. We did review his lower abdominal complaints and I agreed with him that this really seems consistent with some radiation from his lower back in relation to the weight gain. I don't think this is reflective of any intra-abdomina l process nor any other GI pathology. I did advise him to obviously try to lose some weight, watch his diet, and take Tylenol for discomfort. We did review that certainly if anything changes with change in bowel habits, bleeding, etc., he should then call me back. In regard to the lower chest discomfort this does not sound worrisome either and I don't think it reflects anything such as a cardiac process or GI process given its chronicity and no worrisome associated symptoms. Given his chronic use of lansoprazole and the recent negative endoscopy I don't think this is reflective of any significant GI process. I did advise him to try some antacids or he could double the lansoprazole to twice a day for a while to see if that might give him some relief in case we'er dealing with some increased reflux symptoms. I don't think he needs any diagnostic studies at this time. I did advise him that certainly if anything worsens in regard to the chest discomfort he should go to the ER or at least see you or his valuation consultant for evaluation. At this point, given his excellent clinical appearance otherwise and no worrisome symptoms, I advised him to see me in July or August of 2024 such that we can then set up his one-year followup MRI in regard to the pancreatic cysts. We did review that he'll be due for a followup colonoscopy for screening in 2028 as well. Mr. Sanon and his were very comfortable with this plan. Thank you again for allowing me to participate in Mr. Sanon's care. I shall continue to keep you advised of his progress. 01/22/2024 Gastroesophageal reflux disease without esophagitis (ICD-10 - K21.9) Try some antacids as needed for any chest discomfort, but if it worsens you should go to ER or at least call Dr. Edmond You can take the Lansoprazole twice a day for a couple of weeks to see if that helps Overall, Mr. Sanon appears quite well and does not appear to be having any worrisome GI symptoms at the present time. We did review his lower abdominal complaints and I agreed with him that this really seems consistent with some radiation from his lower back in relation to the weight gain. I don't think this is reflective of any intra-abdomina l process nor any other GI pathology. I did advise him to obviously try to lose some weight, watch his diet, and take Tylenol for discomfort. We did review that certainly if anything changes with change in bowel habits, bleeding, etc., he should then call me back. In regard to the lower chest discomfort this does not sound worrisome either and I don't think it reflects anything such as a cardiac process or GI process given its chronicity and no worrisome associated symptoms. Given his chronic use of lansoprazole and the recent negative endoscopy I don't think this is reflective of any significant GI process. I did advise him to try some antacids or he could double the lansoprazole to twice a day for a while to see if that might give him some relief in case we'er dealing with some increased reflux symptoms. I don't think he needs any diagnostic studies at this time. I did advise him that certainly if anything worsens in regard to the chest discomfort he should go to the ER or at least see you or his valuation consultant for evaluation. At this point, given his excellent clinical appearance otherwise and no worrisome symptoms, I advised him to see me in July or August of 2024 such that we can then set up his one-year followup MRI in regard to the pancreatic cysts. We did review that he'll be due for a followup colonoscopy for screening in 2028 as well. Mr. Sanon and his were very comfortable with this plan. Thank you again for allowing me to participate in Mr. Sanon's care. I shall continue to keep you advised of his progress. 09/10/2023 Hiatal hernia (ICD-10 - K44.9) 01/22/2024 Gastric ulcer (ICD-10 - K25.9) Overall, Mr. Sanon appears quite well and does not appear to be having any worrisome GI symptoms at the present time. We did review his lower abdominal complaints and I agreed with him that this really seems consistent with some radiation from his lower back in relation to the weight gain. I don't think this is reflective of any intra-abdomina l process nor any other GI pathology. I did advise him to obviously try to lose some weight, watch his diet, and take Tylenol for discomfort. We did review that certainly if anything changes with change in bowel habits, bleeding, etc., he should then call me back. In regard to the lower chest discomfort this does not sound worrisome either and I don't think it reflects anything such as a cardiac process or GI process given its chronicity and no worrisome associated symptoms. Given his chronic use of lansoprazole and the recent negative endoscopy I don't think this is reflective of any significant GI process. I did advise him to try some antacids or he could double the lansoprazole to twice a day for a while to see if that might give him some relief in case we'er dealing with some increased reflux symptoms. I don't think he needs any diagnostic studies at this time. I did advise him that certainly if anything worsens in regard to the chest discomfort he should go to the ER or at least see you or his valuation consultant for evaluation. At this point, given his excellent clinical appearance otherwise and no worrisome symptoms, I advised him to see me in July or August of 2024 such that we can then set up his one-year followup MRI in regard to the pancreatic cysts. We did review that he'll be due for a followup colonoscopy for screening in 2028 as well. Mr. Sanon and his were very comfortable with this plan. Thank you again for allowing me to participate in Mr. Sanon's care. I shall continue to keep you advised of his progress. 09/10/2023 Antral gastritis (ICD-10 - K29.50) 01/22/2024 Abdominal pain, bilateral lower quadrant (ICD-10 - R10.31) Overall, Mr. Sanon appears quite well and does not appear to be having any worrisome GI symptoms at the present time. We did review his lower abdominal complaints and I agreed with him that this really seems consistent with some radiation from his lower back in relation to the weight gain. I don't think this is reflective of any intra-abdomina l process nor any other GI pathology. I did advise him to obviously try to lose some weight, watch his diet, and take Tylenol for discomfort. We did review that certainly if anything changes with change in bowel habits, bleeding, etc., he should then call me back. In regard to the lower chest discomfort this does not sound worrisome either and I don't think it reflects anything such as a cardiac process or GI process given its chronicity and no worrisome associated symptoms. Given his chronic use of lansoprazole and the recent negative endoscopy I don't think this is reflective of any significant GI process. I did advise him to try some antacids or he could double the lansoprazole to twice a day for a while to see if that might give him some relief in case we'er dealing with some increased reflux symptoms. I don't think he needs any diagnostic studies at this time. I did advise him that certainly if anything worsens in regard to the chest discomfort he should go to the ER or at least see you or his valuation consultant for evaluation. At this point, given his excellent clinical appearance otherwise and no worrisome symptoms, I advised him to see me in July or August of 2024 such that we can then set up his one-year followup MRI in regard to the pancreatic cysts. We did review that he'll be due for a followup colonoscopy for screening in 2028 as well. Mr. Sanon and his were very comfortable with this plan. Thank you again for allowing me to participate in Mr. Sanon's care. I shall continue to keep you advised of his progress. Plan Of Treatment Pending Test Test Name Order Date BUN 02/20/2023 LIVER PROFILE 02/09/2023 IRON + IBC (FE) 04/10/2023 CBC w DIFF 02/09/2023 CBC w DIFF 04/10/2023 CA 19-9 02/20/2023 MRI ABD W&WO CONTRAST 02/20/2023 Creatinine 02/20/2023 Ferritin 04/10/2023 Future Test Test Name Order Date COLONOSCOPY 04/19/2017 UPPER GI ENDOSCOPY 02/09/2023 UPPER GI ENDOSCOPY 06/05/2023 COLONOSCOPY 06/05/2023 Next Appt Details Provider Name:Brooks Gastelum Angle , 07/22/2024 09:30:00 AM, [address] [place] [address], [address], [place], [address], Insurance Providers Payer Name Payer Address Payer Phone Subscriber Number Group Number Insured Name Patient Relationship to Insured Coverage Start Date Coverage End Date [place] [address] [place] [address] [id number] JOSEPH CASEY Self - patient is the insured MED[employer] ATTN CLAIMS [address] [place] [address] [id number] CASEY SANON Self - patient is the insured Medical (General) History Medical History History ICD Code Denies [place],DM,CVA,Lung disease,renal dise ase GERD-EGD in 1999--tiny area [...] Chronic back pain Iron deficiency anemia in fall--upper endoscopy in February of 2023 revealed a gastric antral ulcer. Biopsies were negative for H. pylori and were otherwise benign. He had been taking NSAIDs at that time in addition to his Eliquis 1.6 cm pancreatic cyst seen on ultrasound in February of 2023 and MRI in March of 2023. He saw Dr. Ocampo [facility] GI department who did not think he required an endoscopic ultrasound and has scheduled him for a followup MRI in August of 2023. His followup MRI in August of 2023 was unchanged and without any worrisome findings. The plan is that of a followup MRI in summer Upper endoscopy in September revealed healing of the previous gastric ulcer. There was also a small hiatal hernia but no esophagitis Colonoscopy in September of 2023 revealed a single tubular adenoma and a single inflammatory polyp that were removed Surgical History Surgery Date(Month/Year) Right knee replacement 2011 Left knee replacement 2011 Left knee taken out due to infection and replaced 2013 Back fusion surgery Hernia repair--umbilical-Dr. Hansen 2017 Broken left leg with pins 2000 Hospitalization History Reason Date(Month/Year) As above
--- OUTSIDE RECORDS SUMMARY | 2024-06-12 07:53 | XMS_ITS | Data Portability ---
Author Organization [facility], [facility] Address [address] [place] [address] Assessment No assessment recorded. Plan of Treatment Reminders Order Date Submit Date Provider Last Modified By Organization Details Last Modified Time Details Appointments None record ed. Lab None record ed. Referral None record ed. Procedures None record ed. Surgeries None record ed. Imaging None record ed. Medication Orders None record ed. Patient TargetsNo targets recorded. Patient Instructions Encounter Date Encounter Id Patient Instructions Last Modified By Organization Details Last Modified Time 05/26/2016 [id number] PCPand cards f/u in 1-2 weeks Not available 05/27/2016 16:25:50 Reason for Referral None Reported. Medical Equipment None Reported. Allergies Allergen ID Allergen Name Allergen Category Reaction Reaction Severity Criticality Documentation Date Start Date Code Code System Note Provider Name and Address Organization Details Recorded Time 270536 Product containin g 3-hydroxy -3-methyl glutaryl- coenzyme A reductase inhibitor (product) medicatio n Not available Not available Not available 05/22/2016 23997 009 SNOMED Annie Galarza MD [address] [place] [address], [phone], [facility] 7 12:28:23 795717 almond allergeni c extract food Not available Not available Not available 05/22/2016 90581 7 RxNorm Annie Galarza MD [address] [place] [address], [phone], [facility] 7 12:28:32 Vitals Date Recorded Body temperature Heart rate Systolic blood pressure Diastolic blood pressure Provider Name and Address Organization Details Last Updated DateTime 05/22/2016 97 [degF] 76 /min 135 mm[Hg] 65 mm[Hg] Annie Galarza MD [address] [place] [address], [phone] , [facility] 05/22/2016 12:27:08 Date Recorded Body temperature Systolic blood pressure Diastolic blood pressure Provider Name and Address Organization Details Last Updated DateTime 05/24/2016 97 [degF] 133 mm[Hg] 64 mm[Hg] Annie Galarza MD [address] [place] [address], [phone] 05/24/2016 15:33:47 Date Recorded Body temperature Heart rate Systolic blood pressure Diastolic blood pressure Provider Name and Address Organization Details Last Updated DateTime 05/26/2016 97 [degF] 62 /min 131 mm[Hg] 52 mm[Hg] Annie Galarza MD [address] [place] [address], [phone] [facility] 05/27/2016 16:22:01 Social History Question Answer Notes LastModified by Organizat ion Details LastModified Time Tobacco Smoking Status Never Smoker Annie Galarza MD [address] [place] [address], [phone] 05/22/2016 12:28:51 How Much Tobacco Do You Smoke? No Information not available 05/22/2016 Sex: Unknown Functional Status None recorded. Mental Status None recorded. Family History Nothing Reported. Medical History No medical history recorded. Past Encounters Encounter ID Performer Location Encounter Start Date Encounter Closed Date Diagnosis/Indication Diagnosis SNOMED-CT Code Diagnosis ICD10 Code Diagnosis Note [id number] Annie Galarza MD [facility] [address] [place] [address] 05/22/2016 12:01:25 05/23/2016 08:14:01 Spinal stenosis of lumbar region 64550116 M48.06 post op, on oxycontine -rx for oxycontine 30 mg po q12hrs 60 tabs is given,cont diluadid, tylenol,ne urontine, cont valium prnfor spasms Essential hypertension 41981931 I10 cont cardizem,m etoprolol- hypotensio n resolved Atrial flutter 5582085 I 48.92 will start on apixaban today , cards f/u Benign pro static hyperplasia without outflow obstruction 331659281 N40.0 cont tamsulosin ,flomax Gastroesop hageal reflux disease without esophagitis 364877012 K21.9 cont ppi [id number] Annie Galarza MD [facility] [address] [place] [address] 05/24/2016 15:04:05 05/29/2016 08:32:49 Spinal stenosis of lumbar region 40676730 M48.06 post op, on oxycontine - 30 mg q12, wasnot reduced , rx was replaced with 30 mg one tabs instead of 3 tabs of 10 mg, patient has dilaudid prn order that he did not utilized - instructed to ask for it and take before PT/OT [id number] Annie Galarza MD [facility] [address] [place] [address] 05/26/2016 11:26:10 05/29/2016 08:36:38 Spinal stenosis of lumbar region 32379211 M48.06 doing well, will go home with dilaudid 74tabs- no Rx given, valium 12 tabs of 5 mg and rx for 20 tabs, oxycontine 6 tabs and RX 20 tabs Essential hypertension 46825108 I10 cont cardizem,m etoprolol- hypotensio n resolved. RX for dilatiazem is given, cards f/u Atrial flutter 1289535 I 48.92 cont apixaban , rx given Benign pro static hyperplasia without outflow obstruction 934752639 N40.0 cont tamsulosin ,flomax Gastroesop hageal reflux disease without esophagitis 208384977 K21.9 cont ppi Health Concerns Section Related Observation LastModified by Organization Detai ls LastModified Time None Recorded Concern Status LastModified by Organization Details LastModified Time None Recorded Advance Directives Directive None Recorded Payers Encounter Date Sequence Insurance Name Policy Number Policy Love Covered Member ID Love Member ID Guarantor Name 05/22/2016 1 [place] [employer] William Olimpia Fab [id number] William Sanon 05/24/2016 1 [place] [employer] William Sanon [id number] William Sanon 05/26/2016 1 [place] [employer] William Sanon [id number] T William Sanon Notes Date Note Type Note Provider Name and Address Organization Details Recorded Time 05/22/2016 text/html seen for admissi on to - came from [facility] where pt had T11 to pelvic fusion, laminectomy L3-4. Post op pt had atrial flatter and was startedon cardiazem and on toprol, pt will start apixaban on POD 10. Post opp ptwasdehydrated and treated with IV fluids,had decrease in Na to 131- all improved.Pt cameto for further care Annie Galarza MD [address] [place] [address], [phone], [facility] 05/22/2016 12:43:09 05/24/2016 text/html asked to see by patient - stated his post op back pain isnot controlled and his oxycontine was decreased. Annie Galarza MD [address] [place] [address], [phone], [facility] 05/27/2016 16:21:25 05/26/2016 text/html seen for d/c - c napoleon from [facility] where pt had T11 to pelvic fusion, laminectomy L3-4. Post op pt had atrial flatter and was startedon cardiazem and on toprol, pt will start apixaban on POD 10. Post opp pt was dehydrated and treated with IV fluids,had decrease in Na to 131- all improved.Pt cameto for further care- doing well, ambulating , pain is controlled on current meds.will be going home am Annie Galarza MD [address] [place] [address], [phone], [facility] 05/27/2016 16:26:30
--- OUTSIDE RECORDS SUMMARY | 2024-06-12 07:53 | XMS_ITS ---
Author Organization [facility] Care Team Providers Care Chief Jailer Name Role Phone Michell, Annie Unavailable Unavailable Allergies and adverse reactions Code CodeSystem Substance Reaction Severity StartDate Concern Status 195567507 SNOMED CT Statins Unknown 05/19/2016 active Almonds Unknown 05/19/2016 active Care Team Name Role Address Phone Organization Dates Annie Galarza PCP [facility] @ [address], [address], [place] States (Office): : : (Pager): [facility] 05/20/2016 - 05/27/2016 Goals Section Description Status Target Date Resident will have no S/S of shortness of breath, wheezing, or respiratory distress. Active 08/19/2016 Resident will have no active bleeding. Active 08/19/2016 Resident will remain free fr om fall. R esident will be able to ambulate with a rolling walker at least 15 feet three times a day. Active 08/19/2016 Resident will verbalize adeq uate relief of pain or ability to cope with incompletely relieved pain. Active 08/19/2016 Resident's blood pressure wi ll range within the patient's baseline. Active 08/19/2016 Resident's incision site will not exhibit signs of infection. Active 08/19/2016 Resident's skin will remain clean and intact. Ac tive 08/19/2016 The resident will increase l evel of mobility such that he will be able to walk community distances and negotiate stairs through the next review date. Active 08/19/2016 Immunizations Immunization Status Vaccine Details Vaccine Code CodeSystem Erasto e Notes Influenza cancelled Influenza, high-dose, split virus, quadrivalent, injectable, preservative free 197 CVX created date: 05/22/2016 consent date: 05/22/2016 Pneumovax Dose 1 cancelled cre ated date: 05/29/2016 consent date: 05/29/2016 TDaP cancelled created date: 05/22/2016 consent date: 05/22/2016 Pneumococcal 13 cancelled crea ehsan date: 05/29/2016 consent date: 05/29/2016 Mental Status Section Date Assessment Total Score Description 05/27/2016 BIMS 15 cognitively int act CAM 0 No delirium ind icated PHQ-9 03 minimal depress ion Problems Problem # Description Date of onset Resolved Date Code CodeSystem Concern Status 1 ANEMIA, UNSPECIFIED 05/20/[address] active 2 DIFFICULTY IN WALKING, NOT ELSEWHERE CLASSIFIED 05/20/[address] active 3 ENCOUNTER FOR OTHER SPECIFIED AFTERCARE 05/20/[address] active 4 MUSCLE SPASM OF BACK 05/20/[address] active 5 MUSCLE WEAKNESS (GENERALIZED) 05/20/[address] active 6 SPINAL STENOSIS, LUMBAR REGION 05/20/[address] active 7 BENIGN PROSTATIC HYPERPLASIA WITHOUT LOWER URINARY TRACT SYMPTOMS 05/19/[address] active 8 ENCOUNTER FOR SURGICAL AFTERCARE FOLLOWING SURGERY ON THE NERVOUS SYSTEM 05/19/[address] active 9 ESSENTIAL (PRIMARY) HYPERTENSION 05/19/[address] active 10 GASTRO-ESOPHAGEAL REFLUX DISEASE WITHOUT ESOPHAGITIS 05/19/[address] active 11 OTHER IDIOPATHIC SCOLIOSIS, SITE UNSPECIFIED 05/19/[address] active 12 PURE HYPERCHOLESTEROLEM IA, UNSPECIFIED 05/19/[address] active 13 UNSPECIFIED ATRIAL FLUTTER 05/19/[address] active Reason for Referral No Reasons for Referral Entered Social History Social History Observation Description Start Date End Date Code Code System Current Smoking Status Tobacco smoking consumption unknown 832252729 SNOMED CT Sex Assigned At Male 1950 [address]-4 [facility] Vital Signs Code Code System Vitals Name Values and Units Timing Information 9279-1 [facility] Respiratory Rate Value=18.0 Units=/m in 05/27/2016 8310-5 [facility] Body Temperature Value=97.8 Units=?? F 05/27/2016 63323-7 [facility] O2 % BldC Oximetry Value=96.0 Units= % 05/27/2016 66631-9 [facility] Pain Level Value=0.0 05/27/2016 8462-4 [facility] Blood Pressure-Diastolic Value=66 Un its=mmHg 05/27/2016 8480-6 [facility] Blood Pressure-Systolic Nqwet=818 Un its=mmHg 05/27/2016 8867-4 [facility] Heart rate Value=66.0 Units=/min 8302-2 [facility] Height Value=75.0 Units=Inches 05/24/2016 27269-1 [facility] Weight Klxxk=207.0 Units=Lbs
--- OUTSIDE RECORDS SUMMARY | 2024-06-12 07:54 | XMS_ITS ---
Author Organization [facility] Address [address] [place] [address] Care Team Providers Care Human Resource Statistician Name Role Phone Mayito WHITE, Glen Primary Care Provider Unavailab Brooks Robles [phone] REASON FOR VISIT screening,hx polyps,acute gastric uler w/o hemorrhage Problems Problem Type SNOMED Code ICD Code Onset Dates Problem Status W/U Status Risk Notes Problem Atrophic gastritis (52694224) Antral gastritis (K29.50) Active confirmed Encounters Encounter Location Date Provider Diagnosis [facility] Outpatient [address] [place], [place] [phone] 09/10/2023 Brooks Barbour Encounter for scre ening [...] Next Appt Details Provider Name:Brooks Barbour , 07/22/2024 09:30:00 AM, [address] [place] [address], [address], [place], [address], Progress Notes * CASEY RUIZ GDOB:1950 (73 yo M)Acc No.[id number]:09/10/2023 EGD and COL/MAC Patient:?CASEY RUIZ Provider:?Brooks Barbour MD :1950???Age:72 Y???Sex:Male Erasto e:09/10/2023 Address:[address] [place], [place] [id number] Pcp:Glen Edmond MD Subjective: * Chief Complaints: * ???1. Screening,hx polyps,ac tribal gastric uler w/o hemorrhage. * Medical History:? Objective: * Vitals:? Assessment: * Assessment: 1.?Encounter for screening c olonoscopy - Z12.11 (Primary)???2.?Colon polyps - K63.5???3.?Hiatal hernia - K44.9???4.?Antral gastritis - K29.50??? Plan: * Treatment: * Procedure Codes:?97667 LESIO N REMOVAL COLONOSCOPY, Modifiers: PT , 0529F INTRVL 3+YRS PTS CLNSCP DOCD, Modifiers: 8P , 0528F RCMND FLW-UP 10 YRS DOCD, Modifiers: 8P , 90488 UPPR GI ENDOSCOPY, DIAGNOSIS * * The named appointment provid er may or may not be the originator of this progress note, and it is not deemed complete until electronically signed by the appointment provider. Sign off status: Pending * Provider:?Brooks Barbour MD Date:? 024 Generated for Jarad lopez/Christiano/Halieransmitting on:?06/12/2024 07:54 AM EDT
--- OUTSIDE RECORDS SUMMARY | 2024-06-12 07:54 | XMS_ITS ---
Author Organization [facility] Address [address] [place] [address] Care Team Providers Care Computer Meteorologist Name Role Phone Mayito WHITE, Glen Primary Care Provider UnavailBrooks Main [phone] REASON FOR VISIT ?ulcer Encounters Encounter Location Date Provider Diagnosis [facility] [address] [place] [address] 01/18/2024 Brooks Barbour Plan Of Treatment Next Appt Details Provider Name:Brooks Barbour , 07/22/2024 09:30:00 AM, [address], [address], [place], [address], Progress Notes * CASEY RUIZ GDOB:1950 (73 yo M)Acc No.[id number]:01/18/2024 Patient:?CASEY RUIZ :1950???Age:73 Y???Sex:Male Address:[address] [place] [address] Subjective: * Chief Complaints: * ?ulcer * Medical History:? * Surgical History:? * Hospitalization/Major Diagno stic Procedure:? * Medications:? Objective: Assessment: Plan: * Treatment: * Procedure Codes:? * true * Date:? Generated for Jarad lopez/Christiano/eTransmitting on:?06/12/2024 07:54 AM EDT
--- OUTSIDE RECORDS SUMMARY | 2024-06-12 07:54 | XMS_ITS ---
Author Organization [facility] Address [address] [place] [id number] Care Team Providers Care Power Lineworker Name Role Phone Mayito WHITE, Glen Primary Care Provider Brooks Gee Unavailable [phone] Allergies Allergen (clinical drug ingredient) Drug/Non Drug Allergy documented on EMR Reaction Allergy Type Onset Date Status sertraline Sertraline Unknown Drug Allergy Activ e REASON FOR VISIT patient presents today for possible ulcer? Medications Medication SIG (Take, Route, Frequency, Duration) Notes Start Date End Date Status Gabapentin 300 MG Oral for 90 Active Memantine HCl 10 MG PLEASE SEE ATTACHED FOR DETAILED DIRECTIONS Oral for 28 Active Multi Vitamin/Minerals - 1 Orally QD Active oxyCODONE HCl 5 MG (Schedule II Drug) TAKE 1 TO 2 TABLETS EVERY 4 HOURS NEEDED FOR PAIN Oral for 3 Active Lansoprazole 30 MG 1 capsule Orally BID as of 02/08/2023 Was QD until 02/08/2023 Active dilTIAZem HCl ER 240 MG 1 capsule on an empty stomach in the morning Orally Once a day Active Lansoprazole 30 MG 1 Orally Twice a day for 30 day(s) 02/12/2023 Active MiraLax 17 GM/SCOOP 1 scoop mixed with 8 ounces of fluid Orally Once a day for 30 day(s) prn Active Magnesium 400 MG as directed Orally Active Finasteride 5 MG 1 tablet Orally [...] Negative Section Notes: Nonsmoker; no sig alcohol Problems Problem Type SNOMED Code ICD Code Onset Dates Problem Status W/U Status Risk Notes Problem Right lower quadrant pain (459999676) Abdominal pain, bilateral lower quadrant (R10.31) Active confirmed Vital Signs Blood pressure systolic 00 mm Hg 01/22/20 24 Blood pressure diastolic 00 mm Hg 024 Height 75 in 01/22/2024 Weight 247 lbs 01/22/2024 BMI 30.87 kg/m2 01/22/2024 Encounters Encounter Location Date Provider Diagnosis [facility] [address] [place] [address] 01/22/2024 Brooks Barbour Gastroesophageal ref lux disease without esophagitis K21.9 ; Epigastric abdominal pain R10.13 ; Gastric ulcer K25.9 and Abdominal pain, bilateral lower quadrant R10.31 Assessments Encounter Date Diagnosis (ICD Code) Assessment Notes Treatment Notes Treatment Clinical Notes Section Notes 01/22/2024 Gastroesophageal reflux disease without esophagitis (ICD-10 - K21.9) Try some antacids as needed for any chest discomfort, but if it worsens you should go to ER or at least call Dr. Edmond You can take the Lansoprazole twice a day for a couple of weeks to see if that helps Overall, Mr. Ruiz appears quite well and does not appear [...] or at least see you or his tong carrier for evaluation. At this point, given his excellent clinical appearance otherwise and no worrisome symptoms, I advised him to see me in July or August of 2024 such that we can then set up his one-year followup MRI in regard to the pancreatic cysts. We did review that he'll be due for a followup colonoscopy for screening in 2028 as well. Mr. Ruiz and his were very comfortable with this plan. Thank you again for allowing me to participate in Mr. Ruiz's care. I shall continue to keep you advised of his progress. 01/22/2024 Epigastric abdominal pain (ICD-10 - R10.13) Overall, Mr. Ruiz appears quite well and does not appear [...] or at least see you or his tong carrier for evaluation. At this point, given his excellent clinical appearance otherwise and no worrisome symptoms, I advised him to see me in July or August of 2024 such that we can then set up his one-year followup MRI in regard to the pancreatic cysts. We did review that he'll be due for a followup colonoscopy for screening in 2028 as well. Mr. Ruiz and his were very comfortable with this plan. Thank you again for allowing me to participate in Mr. Ruiz's care. I shall continue to keep you advised of his progress. 01/22/2024 Gastric ulcer (ICD-10 - K25.9) Overall, Mr. Ruiz appears quite well and does not appear [...] or at least see you or his tong carrier for evaluation. At this point, given his excellent clinical appearance otherwise and no worrisome symptoms, I advised him to see me in July or August of 2024 such that we can then set up his one-year followup MRI in regard to the pancreatic cysts. We did review that he'll be due for a followup colonoscopy for screening in 2028 as well. Mr. Ruiz and his were very comfortable with this plan. Thank you again for allowing me to participate in Mr. Ruiz's care. I shall continue to keep you advised of his progress. 01/22/2024 Abdominal pain, bilateral lower quadrant (ICD-10 - R10.31) Overall, Mr. Ruiz appears quite well and does not appear [...] or at least see you or his tong carrier for evaluation. At this point, given his excellent clinical appearance otherwise and no worrisome symptoms, I advised him to see me in July or August of 2024 such that we can then set up his one-year followup MRI in regard to the pancreatic cysts. We did review that he'll be due for a followup colonoscopy for screening in 2028 as well. Mr. Ruiz and his were very comfortable with this plan. Thank you again for allowing me to participate in Mr. Ruiz's care. I shall continue to keep you advised of his progress. Plan Of Treatment Treatment Notes Assessment Notes Gastroesophageal reflux dise ase without esophagitis Try some antacids as needed for any chest discomfort, but if it worsens you should go to ER or at least call Dr. Edmond You can take the Lansoprazole twice a day for a couple of weeks to see if that helps Next Appt Details Follow Up: July or August 2024, Reason: Provider Name:Brooks Barbour , 07/22/2024 09:30:00 AM, [address] [place] [address], [address], [place], [address], Progress Notes * CASEY RUIZ GDOB:1950 (73 yo M)Acc No.[id number]:01/22/2024 Progress Notes Patient:?CASEY RUIZ Provider:?Brooks Barbour MD :1950???Age:73 Y???Sex:Male Erasto e:01/22/2024 Address:[address] [place], [place] [id number] Pcp:Glen Edmond MD Subjective: * Chief Complaints: * ???Patient presents today fo r possible ulcer? * HPI: ???incontinence:? I saw Mr. Ruiz in followup today in regard to some lower abdominal discomfort, some mild chest discomfort, his previous history of a gastric ulcer, and his known pancreatic cysts. He was accompanied by his . ?I last saw Mr. Ruiz in September, at which time he underwent an upper endoscopy and colonoscopy. His upper endoscopy revealed healing of his previous gastric ulcer. The colonoscopy revealed a single tubular adenoma that was removed. He did have a followup MRI of the pancreas in August which revealed no significant changes in the pancreatic cysts and no worrisome findings otherwise. ?Since that time he has remained on his daily lansoprazole. He has been eating comfortably. He denies any significant heartburn or dysphagia. He has been having a low-grade mild and nagging discomfort in the lower sternal area. This is not associated with any type of exertion, shortness of breath, nausea, vomiting, anorexia, nor dysphagia. He denies any significant heartburn, early satiety, jaundice, nor upper abdominal pain. He has not been using any NSAIDs other than very rarely when he has a bad headache. ?He's also been having some bilateral lower quadrant abdominal discomfort that seems to radiate from his lower back. He attributes this to some chronic back discomfort and weight gain. This is not associated with any change in bowel habits, hematochezia, or melena. ?Laboratories from November revealed a normal CBC, chemistries, and normal liver enzymes. * ROS:?General/Constitutional:?Change in appetite?denies.?Chills?denies.?Fatigue?denies.?Ophthalmologic:?Comments?all negative.?ENT:?Comments?all negative.?Respiratory:?hemoptysis?denies.?Cough?denies.?Cardiovascular:?Chest pain?denies.?Orthopnea?denies.?Gastrointestinal:?Comments?See HPI for details.?Genitourinary:?Hematuria?denies.?Dysuria?denies.?Musculoskeletal:?Painful joints?denies.?Weakness?denies.?Skin:?Itching?denies.?Rash?denies.?Neurologic:?Headache?denies.?Seizures?denies.?Psychiatric:?Comments?all negative.? * Medical History:? * Surgical History:?Right knee replacement 2011Left knee replacement 2011Left knee taken out due to infection and replaced 2014Back fusion surgery Hernia repair--umbilical-Dr. Hansen 03/2017Broken left leg with pins 2000 * Hospitalization/Major Diagno stic Procedure:?As above * Family History:?Father: dece ased, of pancreatic cancer in his 50's, diagnosed with HTN (hypertension).?Mother: .? No known family colorectal cancer nor ulcer disease. * Social History:?Tobacco Use:?Tobacco Use/Smoking?Patient is a?former smoker,?When did you start smoking??40 years ago,?How long has it been since you last smoked??> 10 years.?Drugs/Alcohol:?Alcohol Screen?Did you have a drink containing alcohol in the past year??No,?Points?0,?Interpretation?Negative.?Miscellaneous:?Marital status: . 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 ???Nonsmoker; no sig alcohol. * Medications:?TakingMiraLax 1 7 GM/SCOOP Powder 1 scoop mixed with 8 ounces of fluid Orally Once a day, Notes: prnMagnesium 400 MG Tablet as directed Orally Eliquis 5 MG Tablet 1 tablet Orally Twice a dayFinasteride 5 MG Tablet 1 tablet Orally Once a dayTamsulosin HCl 0.4 MG Capsule 1 capsule Orally Once a dayLansoprazole 30 MG Capsule Delayed Release 1 capsule Orally BID as of 02/08/2023, Notes: Was QD until 02/08/2023ilTIAZem HCl ER 240 MG Capsule Extended Release 24 Hour 1 capsule on an empty stomach in the morning Orally Once a dayMulti Vitamin/Minerals - Tablet 1 Orally QDoxyCODONE HCl 5 MG Tablet (Schedule II Drug) TAKE 1 TO 2 TABLETS EVERY 4 HOURS NEEDED FOR PAIN Oral Lansoprazole 30 MG Capsule Delayed Release 1 Orally Twice a dayMemantine HCl 10 MG Tablet PLEASE SEE ATTACHED FOR DETAILED DIRECTIONS Oral Gabapentin 300 MG Capsule Oral Taking MiraLax 17 GM/SCOOP Powder 1 scoop mixed with 8 ounces of fluid Orally Once a day, Notes: prnTaking Magnesium 400 MG Tablet as directed Orally Taking Eliquis 5 MG Tablet 1 tablet Orally Twice a dayTaking Finasteride 5 MG Tablet 1 tablet Orally Once a dayTaking Tamsulosin HCl 0.4 MG Capsule 1 capsule Orally Once a dayTaking Lansoprazole 30 MG Capsule Delayed Release 1 capsule Orally BID as of 02/08/2023, Notes: Was QD until 02/08/2023Taking dilTIAZem HCl ER 240 MG Capsule Extended Release 24 Hour 1 capsule on an empty stomach in the morning Orally Once a dayTaking Multi Vitamin/Minerals - Tablet 1 Orally QDTaking oxyCODONE HCl 5 MG Tablet (Schedule II Drug) TAKE 1 TO 2 TABLETS EVERY 4 HOURS NEEDED FOR PAIN Oral Taking Lansoprazole 30 MG Capsule Delayed Release 1 Orally Twice a dayTaking Memantine HCl 10 MG Tablet PLEASE SEE ATTACHED FOR DETAILED DIRECTIONS Oral Taking Gabapentin 300 MG Capsule Oral DiscontinuedIron (Ferrous Sulfate) 325 (65 Fe) MG Tablet 1 tablet Orally Three times a WeekPregabalin 50 MG Capsule TAKE 1 CAPSULE BY MOUTH TWICE A DAY Oral Cyclobenzaprine HCl 10 MG Tablet 1 tablet at bedtime as needed Orally Once a dayMedication List reviewed and reconciled with the patientDiscontinued Iron (Ferrous Sulfate) 325 (65 Fe) MG Tablet 1 tablet Orally Three times a WeekDiscontinued Pregabalin 50 MG Capsule TAKE 1 CAPSULE BY MOUTH TWICE A DAY Oral Discontinued Cyclobenzaprine HCl 10 MG Tablet 1 tablet at bedtime as needed Orally Once a dayMedication List reviewed and reconciled with the patient * Allergies:?Sertralineyes[All ergies Verified] Objective: * Vitals:?Wt: 247 lbs, Ht: 75 in, BMI:30.87 Index, BP: 00/00 mm Hg. * Examination: ???General Examination: ?GENERAL APPEARANCE:?pleasant, well nourished, well developed, in no acute distress.?EYES:?sclera non-icteric.?ORAL CAVITY:?mucosa moist.?NECK/THYROID:?no cervical lymphadenopathy, neck supple.?SKIN:?nonjaundiced, no spider angiomata.?HEART:?S1, S2 normal.?LUNGS:?clear to auscultation bilaterally.?ABDOMEN:?normal bowel sounds, no guarding or rigidity, no guarding or rigidity, no masses palpable, soft, nontender, nondistended.?EXTREMITIES:?no edema.?NEUROLOGIC:?alert and oriented.? Assessment: * Assessment: 1.?Gastroesophageal reflux d isease without esophagitis - K21.9 (Primary)?2.?Epigastric abdominal pain - R10.13?3.?Gastric ulcer - K25.9?4.?Abdominal pain, bilateral lower quadrant - R10.31? Overall, Mr. Ruiz appears qu ite well and does not appear to be having any worrisome GI symptoms at the present time. We did review his lower abdominal complaints and I agreed with him that this really seems consistent with some radiation from his lower back in relation to the weight gain. I don't think this is reflective of any intra-abdominal process nor any other GI pathology. I [...] or at least see you or his tong carrier for evaluation. At this point, given his excellent clinical appearance otherwise and no worrisome symptoms, I advised him to see me in July or August of 2024 such that we can then set up his one-year followup MRI in regard to the pancreatic cysts. We did review that he'll be due for a followup colonoscopy for screening in 2028 as well. Mr. Ruiz and his were very comfortable with this plan. Thank you again for allowing me to participate in Mr. Ruiz's care. I shall continue to keep you advised of his progress. Plan: * Treatment: * Procedure Codes:?3017F COLOR ECTAL CA SCREEN DOC [id number] TOBACCO [id number] BP SCR NOT PRFRM REC REASON NOS * Preventive Medicine:? ??Counseling:?Care goal follow-up plan:?Above Normal BMI Follow-up?Giving encouragement to exercise,?BMI management provided?Yes.? ??Screenings:?Fall Risk Screening?Fall Risk Assessment:?No falls in the past year,?Screening:?No falls in the past year,?Assessment:?Not performed, no reason specified,?Plan of Care:?Not documented, no reason specified.? * Follow Up:?July or August 2024 * * Sign off status: Completed true * Provider:?Brooks Barbour MD Date:? 024 Generated for Jarad lopez/Christiano/eTransmitting on:?06/12/2024 07:53 AM EDT History and Physical Notes * HPI (History of Present Illness) Category Sub-Category Detail Notes Category Not es incontinence I saw Mr. Ruiz in followup today in regard to some lower abdominal discomfort, some mild chest discomfort, his previous history of a gastric ulcer, and his known pancreatic cysts. He was accompanied by his . I last saw Mr. Ruiz in September, at which time he underwent an upper endoscopy and colonoscopy. His upper endoscopy revealed healing of his previous gastric ulcer. The colonoscopy revealed a single tubular adenoma that was removed. He did have a followup MRI of the pancreas in August which revealed no significant changes in the pancreatic cysts and no worrisome findings otherwise. Since that time he has remained on his daily lansoprazole. He has been eating comfortably. He denies any significant heartburn or dysphagia. He has been having a low-grade mild and nagging discomfort in the lower sternal area. This is not associated with any type of exertion, shortness of breath, nausea, vomiting, anorexia, nor dysphagia. He denies any significant heartburn, early satiety, jaundice, nor upper abdominal pain. He has not been using any NSAIDs other than very rarely when he has a bad headache. He's also been having some bilateral lower quadrant abdominal discomfort that seems to radiate from his lower back. He attributes this to some chronic back discomfort and weight gain. This is not associated with any change in bowel habits, hematochezia, or melena. Laboratories from November revealed a normal CBC, chemistries, and normal liver enzymes. Examination Category Sub-Category Detail Notes Category Not es General Examination GENERAL APPEARANCE: pleasant , well nourished, well developed, in no acute distress HEAD: EYES: sclera non-icteric EARS: NOSE: THROAT: NECK/THYROID: no cervical lymphade nopathy, neck supple HEART: S1, S2 normal CHEST: LUNGS: clear to auscultatio n bilaterally ABDOMEN: normal bowel sounds, no guarding or rigidity, no guarding or rigidity, no masses palpable, soft, nontender, nondistended NEUROLOGIC: alert and oriented SKIN: nonjaundiced, no spi antonia angiomata EXTREMITIES: no edema PERIPHERAL PULSES: BACK: BREASTS: MUSCULOSKELETAL: MALE GENITOURINARY: LYMPH NODES: RECTAL EXAM: FEMALE GENITOURINARY: ORAL CAVITY: mucosa moist
--- OUTSIDE RECORDS SUMMARY | 2024-06-12 07:54 | XMS_ITS ---
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 Name Role Phone Glen Edmond MD Primary Care Provider Unavailab le Rebekah Dumont Unavailable [phone] NestorSafia meyers Unavailable [phone] Allergies Allergen (clinical drug ingredient) Drug/Non Drug Allergy documented on EMR Reaction Allergy Type Onset Date Status amitriptyline Amitriptyline HCl Unknown Drug Allergy Active lisinopril Lisinopril dizziness Drug Allergy Activ e Metoprolol Succinate dizziness Drug Allergy Active Sertraline HCl Unknown Drug Allergy Ac tive ezetimibe Zetia myalgia Drug Allergy Active Almonds anaphylaxis Drug Allergy Activ e Quinine Derivatives fatigue Drug Allergy Active Substance with 8-ocjenox-3-methylglu taryl-coenzyme A reductase inhibitor mechanism of action (substance) Statins myalgia Drug Allergy Active REASON FOR VISIT Pcp- 07/03/23, Ingrown nail Medications Medication SIG (Take, Route, Frequency, Duration) Notes Start Date End Date Status oxyCODONE-Acetaminophen 5-325 MG Orally every 6 hrs Not-Takin g Augmentin 500-125 MG 1 tablet Orally Twi ce a day for 5 days 07/20/2023 Active Fish Oil 1000 MG 1 capsule Orally Onc e a day Not-Taking dilTIAZem HCl 120 MG Orally Not-Taking Baby Aspirin Not-Junior ing Tamsulosin HCl 0.4 MG Orally 1 Active oxyCODONE HCl 5 MG 1 tablet as needed Orally every 6 hrs Active Cephalexin 500 MG 1 capsule Orally every 12 hours for 10 days Not-Taking Chlorzoxazone 500 MG Orally 4 times/ day Not-Taking Mens 50+ Multivitamin Active Gabapentin 300 MG 1 capsule Orally Onc e a day Not-Taking Gabapentin 600 MG 1 tablet Orally Once a day Not-Taking Lisinopril 10 MG 1 tablet Orally Once a day Not-Taking Lansoprazole 30 MG Orally A ctive Magnesium 400 MG as directed Orally Active Cyclobenzaprine HCl 10 MG 1 tablet at be dtime as needed Orally Once a day Not-Taking Benefiber Not-Taking dilTIAZem HCl ER 240 MG 1 tablet Orally Once a day Active Finasteride 5 MG Orally Act storm Eliquis 5 MG 1 tablet Orally Twic e a day Active MiraLax Active Pregabalin 50 MG 1 capsule in the evening 1 to 3 hours before bedtime Orally Once a day Active Iron Active Social History Tobacco Use: Social History Observation Description Date Details (start date - stop date) Former Smoker NA - NA Tobacco Use/Smoking Question Answer Notes Are you a: former smoker Additional Findings: Tobacco Non-User Current no n-smoker Tobacco use other than smoking: Question Answer Notes Are you an other tobacco user? No Vital Signs Height 6 ft 3 in in 07/20/2023 Weight 240 lbs 07/20/2023 BMI 29.99 kg/m2 07/20/2023 Blood pressure systolic 174 mm Hg 07/20/19 24 Blood pressure diastolic 84 mm Hg 024 Encounters Encounter Location Date Provider Diagnosis [facility] [address] [address] 07/20/2023 Safai Larsen Ingrown nail L60.0 Assessments Encounter Date Diagnosis (ICD Code) Assessment Notes Treatment Notes Treatment Clinical Notes Section Notes 07/20/2023 Ingrown nail (ICD-10 - L60.0) Plan Of Treatment Medication Medication Name Sig Start Date Stop Date Notes Augmentin 500-125 MG 1 tablet Orally Twi ce a day for 5 days 07/20/2023 Next Appt Details Follow Up: 2-4 Weeks, Reason : Procedure Notes * Category Sub-Category Detail Notes Matricectomy (OP NOTE) Consent The patie nt was brought to the examination room and placed on the table in a supine position. The pre/gibran/postoperative course, risks, complications and alternatives were discussed, understood and accepted by the patient. No guarantees were given regarding the surgical outcome Procedure A digital prep with alcohol or betadine was performed. 3cc of 1 percent Xylocaine Plain local anesthetic was administered to the toe via digital block utilizing aseptic technique. A digital touriquet was applied. The affected toenail portion was undermined, incised and resected to the eponychium and matrix. It was noted to be significantly incurvated and hypertrophied. The nailbed and matrix were curetted and the nail groove, bed and matrix were cauterized with Phenol, 3 applications of 30 seconds each from a cotton tip applicator, no underling bone was identified. The surrounding skin was protected from the Phenol with Bacitracin ointment. The tourniquet was released and capillary fill time was intact to the digit. A sterile Bacitracin dressing was applied Disposition Disposition: The pat ient tolerated the procedure and anesthesia well and left in good condition, alert, oriented and stable in no acute distress. Local wound care instructions were discussed and dispensed. There were no complications and the prognosis is favorable, Recommended alternating/staggering Tylenol XS 2 tabs and Motrin 600mg q 6 hrs ea for discomfort, Rx narcotic postop pain meds were deferred, ABX: The Pt was advised to take their prophylactic Abx Location Medial nail border, TA Progress Notes * JOSEPH William GDOB:1950 (72 yo M)Acc No.[id number]:07/20/2023 Progress Note Patient:?William Sanon Provider:?Safia Larsen DPM :1950???Age:72 Y???Sex:Male Erasto e:07/20/2023 Address:[address] [place], [place] [id number] Pcp:Glen Edmond MD Subjective: * Chief Complaints: * ???Pcp- 07/03/23 Cristina parra * ROS:?General/Constitutional:?Nausea?denies.?Vomiting?denies.?Hunger Thirst?denies.?Loss appetite?denies.?Chills?denies.?Fatigue?denies.?Fever?denies.?Night Sweats?denies.?Unexplained weight loss?denies.?Unexplained weight gain?denies.?HEENTM:?Dentures?denies.?Dizziness?denies.?Glasses/contacts?admits.?Retinopathy?de nies.?Blurred/double vision?denies.?TMJ?denies.?Discharge/drainage?denies.?Implants?denies.?Sore throat?denies.?Dental implants?denies.?Hard of hearing ?denies.?Difficulty chewing/swallowing/speaking?denies.?Nose bleeds?denies.?Sore mouth?denies.?Respiratory:?On Oxygen?denies.?Pneumonia/pleurisy?denies.?Bronchitis?denies.?Emphysema?denies.?C oughing?denies.?Cough blood?denies.?Shortness of breath?denies.?Wheezing?denies.?Cardiovascular:?Pacemaker?denies.?MVP?denies.?WPW?denies.?CHF?denies.?Heart attack?denies.?Septal defect?denies.?Rapid beat?denies.?Chest pain ?denies.?Atrial Fib.?denies.?Murmur/Palpitations?denies.?Gastrointestinal:?Hemorrhoids?denies.?Stomach/Abdominal pain?denies.?Dark blood stool?denies.?Irritable bowel ?denies.?Constipation?denies.?Diarrhea?denies.?Hematology:?Swelling?denies.?Clots?denies.?Varicose Veins?denies.?Bruising?denies.?Bleeding problem?denies.?Genitourinary:?Blood urine?denies.?Frequent/Painfu/urination/bladder control?denies.?Kidney stones?denies.?Infection (UTI)?denies.?Nephropathy?denies.?sex trans dis (STD)?denies.?Prostate?denies.?Musculoskeletal:?Hammertoes?denies.?Bunions?denies.?Back Pain?denies.?Muscle Cramps/ Resting?denies.?Muscle cramps / walking?denies.?Generalized aches and pains?admits.?Weakness?denies.?Integ.:?Salas?denies.?Scars?denies.?Corns/calluses?admits.?Ingrown nails?denies.?Painful nails?admits.?Open Sores?denies.?Rashes?denies.?Neurologic:?Difficulty sleeping?denies.?Brain disorder?denies.?Numbness?admits.?Balance trouble?denies.?Confusion?denies.?Fainting/blackouts?denies.?Tingling?admits.?Tr emors?denies.? * Medical History:? * Surgical History:?L/S surger y 1994Broke left leg, rods and pins 2001knee replacement, left knee replacement, right 2012back surgery lower back fusion 2017belly button hernia 2018full back fusion 04/2020hernia 08/16/2022 * Hospitalization/Major Diagno stic Procedure:?Positive for COVID-19 03/02/2022 * Family History:?Mother: dece ased, diagnosed with Family history of arthritis, Other malignant neoplasm of unspecified site.?Father: , diagnosed with Unspecified essential hypertension, Other malignant neoplasm of unspecified site.? * Social History:?Tobacco Use:?Tobacco Use/Smoking?Are you a:?former smoker ?Additional Findings: Tobacco Non-User?Current non-smoker ?Tobacco use other than smoking?Are you an other tobacco user??No ???Drugs/Alcohol:?Drugs?Have you used drugs other than those for medical reasons in the past 12 months??No ?Alcohol Screen?Did you have a drink containing alcohol in the past year?: No, Points: 0, Interpretation: Negative.?Miscellaneous:?Caffeine: yes, Tea in AM. ?Children: yes. ?Exercise: yes, Fly model airplanes, walking. ?Marital status: . 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 * Medications:?TakingMiraLax I quin Pregabalin 50 MG Capsule 1 capsule in the evening 1 to 3 hours before bedtime Orally Once a daydilTIAZem HCl ER 240 MG Tablet Extended Release 24 Hour 1 tablet Orally Once a dayEliquis 5 MG Tablet 1 tablet Orally Twice a dayFinasteride 5 MG Tablet Orally Lansoprazole 30 MG Capsule Delayed Release Orally Magnesium 400 MG Capsule as directed Orally Mens 50+ Multivitamin oxyCODONE HCl 5 MG Tablet 1 tablet as needed Orally every 6 hrsTamsulosin HCl 0.4 MG Capsule Orally 1Taking MiraLax Taking Iron Taking Pregabalin 50 MG Capsule 1 capsule in the evening 1 to 3 hours before bedtime Orally Once a dayTaking dilTIAZem HCl ER 240 MG Tablet Extended Release 24 Hour 1 tablet Orally Once a dayTaking Eliquis 5 MG Tablet 1 tablet Orally Twice a dayTaking Finasteride 5 MG Tablet Orally Taking Lansoprazole 30 MG Capsule Delayed Release Orally Taking Magnesium 400 MG Capsule as directed Orally Taking Mens 50+ Multivitamin Taking oxyCODONE HCl 5 MG Tablet 1 tablet as needed Orally every 6 hrsTaking Tamsulosin HCl 0.4 MG Capsule Orally 1Not-Taking/PRNBenefiber Cyclobenzaprine HCl 10 MG Tablet 1 tablet at bedtime as needed Orally Once a dayGabapentin 600 MG Tablet 1 tablet Orally Once a dayGabapentin 300 MG Capsule 1 capsule Orally Once a dayLisinopril 10 MG Tablet 1 tablet Orally Once a dayCephalexin 500 MG Capsule 1 capsule Orally every 12 hoursChlorzoxazone 500 MG Tablet Orally 4 times/ dayoxyCODONE-Acetaminophen 5-325 MG Tablet Orally every 6 hrsdilTIAZem HCl 120 MG Tablet Orally Fish Oil 1000 MG Capsule 1 capsule Orally Once a dayBaby Aspirin Medication List reviewed and reconciled with the patientNot-Taking/PRN Benefiber Not-Taking/PRN Cyclobenzaprine HCl 10 MG Tablet 1 tablet at bedtime as needed Orally Once a dayNot-Taking/PRN Gabapentin 600 MG Tablet 1 tablet Orally Once a dayNot-Taking/PRN Gabapentin 300 MG Capsule 1 capsule Orally Once a dayNot-Taking/PRN Lisinopril 10 MG Tablet 1 tablet Orally Once a dayNot-Taking/PRN Cephalexin 500 MG Capsule 1 capsule Orally every 12 hoursNot-Taking/PRN Chlorzoxazone 500 MG Tablet Orally 4 times/ dayNot- Taking/PRN oxyCODONE-Acetaminophen 5-325 MG Tablet Orally every 6 hrsNot-Taking/PRN dilTIAZem HCl 120 MG Tablet Orally Not-Taking/PRN Fish Oil 1000 MG Capsule 1 capsule Orally Once a dayNot-Taking/PRN Baby Aspirin Medication List reviewed and reconciled with the patient * Allergies:?Almonds: anaphyla xisStatins: myalgiaZetia: myalgiaQuinine Derivatives: fatigueMetoprolol Succinate: dizzinessAmitriptyline HClSertraline HClLisinopril: dizzinessyes[Allergies Verified] Objective: * Vitals:?Ht: 6 ft 3 in, Wt:24 0, BMI:29.99, Shoe size:12W, BP:174/84 mm Hg. * Examination: ???Ingrown Nail: ?INSPECTION:?Reveals incurvation, pain on palpation, groove hypertrophy, Medial nail border, TA.? 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 Plan: * Treatment: * Procedures:?Matricectomy (OP NOTE):?Location?Medial nail border, TA.?Consent?The patient was brought to the examination room and placed on the table in a supine position. The pre/gibran/postoperative course, risks, complications and alternatives were discussed, understood and accepted by the patient. No guarantees were given regarding the surgical outcome.?Procedure?A digital prep with alcohol or betadine was performed. 3cc of 1 percent ?Xylocaine Plain local anesthetic was administered to the toe via digital block utilizing aseptic technique. A digital touriquet was applied. The affected toenail portion was undermined, incised and resected to the eponychium and matrix. It was noted to be significantly incurvated and hypertrophied. The nailbed and matrix were curetted and the nail groove, bed and matrix were cauterized with Phenol, 3 applications of 30 seconds each from a cotton tip applicator, no underling bone was identified. The surrounding skin was protected from the Phenol with Bacitracin ointment. The tourniquet was released and capillary fill time was intact to the digit. A sterile Bacitracin dressing was applied .?Disposition?Disposition: The patient tolerated the procedure and anesthesia well and left in good condition, alert, oriented and stable in no acute distress. Local wound care instructions were discussed and dispensed. There were no complications and the prognosis is favorable, Recommended alternating/staggering Tylenol XS 2 tabs and Motrin 600mg q 6 hrs ea for discomfort, Rx narcotic postop pain meds were deferred, ABX: The Pt was advised to take their prophylactic Abx.? * Procedure Codes:?67545 REMOV AL OF NAIL BED * Follow Up:?2-4 Weeks * Images: * Sign off status: Completed true * Provider:?Safia Larsen DPM Date:?12/2023 Generated for Jarad lopez/Christiano/Edgard on:?06/12/2024 07:54 AM EDT History and Physical Notes * Examination Category Sub-Category Detail Notes Category Not es Ingrown Nail INSPECTION: Reveals incurvat ion, pain on palpation, groove hypertrophy, Medial nail border, TA
--- OUTSIDE RECORDS SUMMARY | 2024-06-12 07:54 | XMS_ITS ---
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 Role Phone Glen Edmond MD Primary Care Provider Unavailab le Rebekah Dumont Unavailable [phone] NestorSafia meyers Unavailable [phone] Allergies Allergen (clinical drug ingredient) Drug/Non Drug [...] Derivatives fatigue Drug Allergy Active Substance with 8-kmgclye-3-methylglu taryl-coenzyme A reductase inhibitor mechanism of action (substance) Statins myalgia Drug Allergy Active REASON FOR VISIT Pcp-07/03, Open sore Medications Medication SIG (Take, Route, Frequency, Duration) Notes Start Date End Date Status Chlorzoxazone 500 MG Orally 4 times/ day Not-Taking Fish Oil 1000 MG 1 capsule Orally Onc e a day Not-Taking Baby Aspirin Not-Junior ing oxyCODONE-Acetaminophen 5-325 MG Orally every 6 hrs Not-Takin g dilTIAZem HCl 120 MG Orally Not-Taking Cephalexin 500 MG 1 capsule Orally every 12 hours for 10 days Not-Taking Gabapentin 600 MG 1 tablet Orally Once a day Not-Taking Gabapentin 300 MG 1 capsule Orally Onc e a day Not-Taking Cyclobenzaprine HCl 10 MG 1 tablet at be dtime as needed Orally Once a day Not-Taking Lisinopril 10 MG 1 tablet Orally Once a day Not-Taking Tamsulosin HCl 0.4 MG Orally 1 Active Augmentin 500-125 MG 1 tablet Orally Twi ce a day for 5 days 07/20/2023 Active Mens 50+ Multivitamin Active oxyCODONE HCl 5 MG 1 tablet as needed Orally every 6 hrs Active Benefiber Not-Taking Lansoprazole 30 MG Orally A ctive Magnesium 400 MG as directed Orally Active Eliquis 5 MG 1 tablet Orally Twic e a day Active Finasteride 5 MG Orally Act storm dilTIAZem HCl ER 240 MG 1 tablet Orally Once a day Active Pregabalin 50 MG 1 capsule in the evening 1 to 3 hours before bedtime Orally Once a day Active MiraLax Active Iron Active Social History Tobacco Use: Social History Observation Description Date Details (start date - stop date) Former Smoker NA - NA Tobacco Use/Smoking Question Answer Notes Are you a: former smoker Additional Findings: Tobacco Non-User Current no n-smoker Tobacco use other than smoking: Question Answer Notes Are you an other tobacco user? 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 Response to treatment Problem [id number] Neuropathy (G62.9) Active confirmed Vital Signs Height 6ft3in in 08/03/2023 Weight 235 lbs 08/03/2023 BMI 29.37 kg/m2 08/03/2023 Blood pressure systolic 127 mm Hg 08/03/19 24 Blood pressure diastolic 77 mm Hg 024 Encounters Encounter Location Date Provider Diagnosis [facility] [address] [place] [address] 08/03/2023 Safia Larsen Neuropathic ulcer of left foot with fat layer exposed L97.522 and Neuropathy G62.9 Assessments Encounter Date Diagnosis (ICD Code) Assessment Notes Treatment Notes Treatment Clinical Notes Section Notes 08/03/2023 Neuropathic ulcer of left foot with fat layer exposed (ICD-10 - L97.522) Response to treatment Patient Educated with: WOUND CARE INSTRUCTIONS.p df (WOUND CARE INSTRUCTIONS.p df) 08/03/2023 Neuropathy (ICD-10 - G62.9) Plan Of Treatment Treatment Notes Assessment Notes Neuropathic ulcer of left fo ot with fat layer exposed Patient Educated with: WOUND CARE INSTRUCTIONS.pdf (WOUND CARE INSTRUCTIONS.pdf) Next Appt Details Follow Up: prn, Reason: Procedure Notes * Category Sub-Category Detail Notes Debride skin and subQ Open wound NEUROPATHY : Physician of record performed open wound selective debridement of devitalized necrotic/nonviable soft tissue, fibrin, exudate, epidermis, dermis, thru skin and subcutaneous fat tissue, first 20 sq cm or less, using sharp dissection with sterile 15 blade, and/or tissue nippers. ANESTHESIA was not required due to presence of NEUROPATHY. Hemostasis was controlled through direct pressure. Sterile antibiotic dressing applied. Post debridement measurements: 6 mm x 2 mm x 3mm. Character of the wound post debridement is stable (62594) , The patient is to apply Antibiotic Oint. to the wound and cover with a DSD , The patient is to cont the local wound care as directed till condition is completely healed Progress Notes * William SANON GDOB:1950 (72 yo M)Acc No.[id number]:08/03/2023 Progress Notes Patient:?William Sanon Provider:?Safia Larsen DPM :1950???Age:72 Y???Sex:Male Erasto e:08/03/2023 Address:[address] [place], [place] [id number] Pcp:Glen Edmond MD Subjective: * Chief Complaints: * ???Pcp-07/03Open sore * HPI: ???Foot Pain:?Nature:?numbness , radiating , shooting , stabbing.?Location:?B/L.?Duration:?several years.?Onset:?gradual , unknown.?Treatments:?Gabapentin, Pre-Gabalin, pain managment.? * ROS:?General/Constitutional:?Nausea?denies.?Vomiting?denies.?Hunger Thirst?denies.?Loss appetite?denies.?Chills?denies.?Fatigue?denies.?Fever?denies.?Night Sweats?denies.?Unexplained weight loss?denies.?Unexplained weight gain?denies.?HEENTM:?Dentures?denies.?Dizziness?denies.?Glasses/contacts?admits.?Retinopathy?de nies.?Blurred/double vision?denies.?TMJ?denies.?Discharge/drainage?denies.?Implants?denies.?Sore throat?denies.?Dental implants?denies.?Hard of hearing ?denies.?Difficulty chewing/swallowing/speaking?denies.?Nose bleeds?denies.?Sore mouth?denies.?Respiratory:?On Oxygen?denies.?Pneumonia/pleurisy?denies.?Bronchitis?denies.?Emphysema?denies.?C oughing?denies.?Cough blood?denies.?Shortness of breath?denies.?Wheezing?denies.?Cardiovascular:?Pacemaker?denies.?MVP?denies.?WPW?denies.?CHF?denies.?Heart attack?denies.?Septal defect?denies.?Rapid beat?denies.?Chest pain ?denies.?Atrial Fib.?denies.?Murmur/Palpitations?denies.?Gastrointestinal:?Hemorrhoids?denies.?Stomach/Abdominal pain?denies.?Dark blood stool?denies.?Irritable bowel ?denies.?Constipation?denies.?Diarrhea?denies.?Hematology:?Swelling?denies.?Clots?denies.?Varicose Veins?denies.?Bruising?denies.?Bleeding problem?denies.?Genitourinary:?Blood urine?denies.?Frequent/Painfu/urination/bladder control?denies.?Kidney stones?denies.?Infection (UTI)?denies.?Nephropathy?admits.?sex trans dis (STD)?denies.?Prostate?denies.?Musculoskeletal:?Hammertoes?denies.?Bunions?denies.?Back Pain?denies.?Muscle Cramps/ Resting?denies.?Muscle cramps / walking?denies.?Generalized aches and pains?admits.?Weakness?denies.?Integ.:?Salas?denies.?Scars?denies.?Corns/calluses?admits.?Ingrown nails?denies.?Painful nails?admits.?Open Sores?denies.?Rashes?denies.?Neurologic:?Difficulty sleeping?denies.?Brain disorder?denies.?Numbness?admits.?Balance trouble?denies.?Confusion?denies.?Fainting/blackouts?denies.?Tingling?admits.?Tr emors?denies.? * Medical History:? * Surgical History:?L/S surger y 1994Broke left leg, rods and pins 2001knee replacement, left 2011/2013knee replacement, right 2012back surgery lower back fusion [...] ?Marital status: . 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 * Medications:?TakingMiraLax I quin Pregabalin 50 MG [...] 6 hrsTamsulosin HCl 0.4 MG Capsule Orally 1Augmentin 500-125 MG Tablet 1 tablet Orally Twice a dayTaking MiraLax Taking Iron Taking Pregabalin 50 MG [...] hrsTaking Tamsulosin HCl 0.4 MG Capsule Orally 1Taking Augmentin 500-125 MG Tablet 1 tablet Orally Twice a dayNot-Taking/PRNBenefiber Cyclobenzaprine HCl 10 MG Tablet 1 tablet at bedtime as needed Orally Once a dayGabapentin 600 MG Tablet 1 tablet Orally Once a dayGabapentin 300 MG Capsule 1 capsule Orally Once a dayLisinopril 10 MG Tablet 1 tablet Orally Once a dayCephalexin 500 MG Capsule 1 capsule Orally every 12 hoursChlorzoxazone 500 MG Tablet Orally 4 times/ dayoxyCODONE-Acetaminophen 5- 325 MG Tablet Orally every 6 hrsdilTIAZem HCl [...] HClSertraline HClLisinopril: dizzinessyes[Allergies Verified] Objective: * Vitals:?Ht: 6ft3in, Wt:235, BMI:29.37, Shoe size: 12W, BP:127/77 mm Hg, Ht-cm: 190.5 cm, Wt-k.59 kg. 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 as own?historian for office visit today.?ORIENTED:?person, place, and time.?Neurological: ?SENSORY:?Neurological exam demonstrates , reduced light touch sensation , reduced sharp/dull pin prick discrimination , reduced vibration sensation , reduced proprioception sensation , in a stocking fashion , plantar aspects , 5.07 monofilament test performed at plantar aspects of 5 varied sites per foot shows sensation , reduced , at Forefoot , B/L , Pt relates , anesthesia , burning , hyperesthesia , shooting/radiating sensation.?Vascular: ?DP PULSES:?3/4, B/L.?PT PULSES:?3/4, B/L.?CAPILLARY FILL TIME:?immediate, all digits, B/L.?SKIN TEMPERTURE GRADIENT OF THE LOWER EXTERMITIES:?warm to cool, proximal to distal, B/L.?HAIR GROWTH/TEXTURE/ELASTICITY/TURGOR:?normal, B/L.?PIGMENTATION:?normal, B/L.?EDEMA:?absent, B/L.?Orthopedic: ?MUSCLE STRENGTH:?5/5 all groups in a symmetrical fashion , B/L.? Assessment: * Assessment: 1.?Neuropathy - G62.9 (Prima ry)?2.?Neuropathic ulcer of left foot with fat layer exposed - L97.522, Response to treatment? Plan: * Treatment: * Procedures:?Debride skin and subQ:?Open wound?NEUROPATHY: Physician of record performed open wound selective debridement of devitalized necrotic/nonviable soft tissue, fibrin, exudate, epidermis, dermis, thru skin and subcutaneous fat tissue, first 20 sq cm or less, using sharp dissection with sterile 15 blade, and/or tissue nippers. ANESTHESIA was not required due to presence of NEUROPATHY. Hemostasis was controlled through direct pressure. Sterile antibiotic dressing applied. Post debridement measurements: 6 mm x 2 mm x 3mm. Character of the wound post debridement is stable (20191) , The patient is to apply Antibiotic Oint. to the wound and cover with a DSD , The patient is to cont the local wound care as directed till condition is completely healed.? * Procedure Codes:?48954 DEBRI DE SKIN/TISSUE, Modifiers: XS * Preventive Medicine:? ??Counseling:?Discussion:?-14: Office or other outpatient visit for the evaluation and management of an established patient, which required a medically appropriate history and/or examination and MODERATE level of DECISION MAKING for: 1 OR MORE CHRONIC PROBLEM(S) THATS WORSENING, 2 STABLE CHRONIC PROBLEMS, A NEWLY DIAGNOSED PROBLEM WITH UNCERTAIN PROGNOSIS, AN ACUTE COMPLICATED INJURY WITH MULTIPLE TREATMENT OPTIONS, OR AN ACUTE PROBLEM WITH ACCOMPANYING SYSTEMIC SYMPTOMS, THAT POSE(S) A MODERATE RISK OF MORBIDITY. THIS CONDITION MAY ALSO INCLUDE RX DRUG MANAGEMENT, OR A DECISON FOR MINOR SURGERY. The visit on the day of the encounter encompassed interpreting the data and educating the patient as to the nature of their condition, treatment options available according to their individual PMH, meds, allergies, and overall health/living conditions, as well as any potential risks or complications that may occur from a failure to adhere to, and participate in, the recommended course of therapy. The discussion included a complete verbal, and/or written explanation of the examination results, any x-rays taken, the proposed diagnosis, and outline of the treatment plan. A schedule for future care needs was also explained. The patient verbalized an understanding of the instructions at this time and agreed to be an active participant in their treatment. If the patient should think of any questions or concerns after the visit, I have encouraged the patient to call the office.?Consult:?The Pt. was counseled on the diagnosis, treatment options, and the need for a consult to [facility] for evaluation for Medtronic insertion.?Neuritis/Neuropathy:?The patient was counseled on the diagnosis, possible etiologies (including mechanical stress, injury, entrapment, chemotherapy, diabetes, vertebral disk herniation if hx), treatment options, and importance for adherence to recommendations in order to address the patients Neuritis/Neuropathy. The advantages and disadvantages re: Accomidative mechanical support/offloading, Topical vs PO analgesics including aspercream/Voltaren gel/Lidoderm patches/Neurontin/Lyrica along with their potential side effects were discussed with the patient to their satisfaction. Also discussed the use of therapeutic injectable cortisone if needed. Surgical treatment, if considered an option, was discussed as well. If surgery is warranted, we discussed the potential successful outcomes as well as the possible complications such as failure, painful scar, permanent tingling/numbness/neuralgea/or intractable pain. Patient questions re: medication use, dosage, and possible side effects and drug interactions were reviewed and the answers to each understood. If the condition worsens, the patient was instructed to contact the office for an appointment. The patient verbally confirmed a full understanding of the above.?Ulcer:?A detailed plan of care was reviewed with the patient. We emphasized the fact that the patient takes on an active participating role in the treatment process and emphasized to them that they are an included, valued, and important member of the wound healing team in order to reach an expedient successful outcome. The patient agreed to follow their medically recommended diet while increasing their protein intake if safely able to do so, maintain proper bodily hydaration, abide by weight-bearing restrictions at all times, quit all current smoking habits if any, and diligently follow any/all dressing change instructions. It was clearly made known to the patient that if they fail to do their part, they will likely extend their course of treatment as well as possibly increase their risk of adverse events including amputation. The patient was instructed on importance of proper wound care consisting of pressure reduction, and proper maintainance of a moist wound environment. The patient is to cleanse the wound with warm soapy water/peroxide/saline, or betadine BID based on product availability. The patient is to apply ( ____ ) Antibiotic to the wound and cover with a DSD as directed. The patient was instructed to change dressings according to orders, or PRN saturation, leaks. The patient was instructed to monitor and report any signs or symptoms of infection or any untoward reactions. Precautions Taken: Offloading/Pressure reduction via rest/ limited activity to essential to daily life only, cane/ crutches/ walker/ knee scooter/ wheel chair, shoe modification, accommodative padding, sharp debridement, and take/apply medication as directed. THE GOALS of wound debridement to remove devitilized tissue, decrease risk for infection, promote wound healing and prevent further complication were discussed/reviewed. Debridement frequency as indicated.? * Follow Up:?prn * Images: * Sign off status: Completed true * Provider:Andra Larsen, MCKENNAM Date:? Generated for Jarad lopez/Christiano/eTransmitting on:?06/12/2024 07:53 AM EDT History and Physical Notes * HPI (History of Present Illness) Category Sub-Category Detail Notes Category Not es Foot Pain Nature: numbness , radiating , shoot ing , stabbing Location: B/L Duration: several years Onset: gradual , unknown Treatments: Gabapentin, Pre-[place], pain managment Examination Category Sub-Category Detail Notes Category Not es Neurological SENSORY: Neurological exa m demonstrates , reduced light touch sensation , reduced sharp/dull pin prick discrimination , reduced vibration sensation , reduced proprioception sensation , in a stocking fashion , plantar aspects , 5.07 monofilament test performed at plantar aspects of 5 varied sites per foot shows sensation , reduced , at Forefoot , B/L , Pt relates , anesthesia , burning , hyperesthesia , shooting/radiating sensation Dermatologic ULCER: LOCATION, medial TA LEFT, SIZE, 6 mm X 2 mm X 3mm, BASE, fibro-granular, RIM, hyperkeratotic, UNDERMINING, mild, TRACKING, Sub Q with Fat layer exposed, DRAINAGE, serosanguineous, moderate, NECROTIC TISSUE, loosely-adherent, yellow slough, MALODOR, absent, CALOR, absent, ERYTHEMA, absent Orthopedic MUSCLE STRENGTH: 5/5 all groups in a symmetrical fashion , B/L General Examination GENERAL APPEARANCE: Reveals a pleasant, alert, well-nourished, well-developed, well hydrated individual, who demonstrates proper attention to hygiene/body habitus, and is in no acute distress, Pt serves as own historian for office visit today ORIENTED: person, place, and t yvrose Vascular DP PULSES (B): 3/4, B/L PT PULSES (B): 3/4, B/L CAPILLARY FILL TIME: immediate, all digi ts, B/L TEMPERTURE GRADIENT (C): warm to cool, p roximal to distal, B/L TROPHIC CONDITION-TEXTURE/ELASTICITY/TURGOR/HAIR GROWTH (B): normal, B/L EDEMA (C): absent, B/L PIGMENTATION: normal, B/L
--- OUTSIDE RECORDS SUMMARY | 2024-06-12 07:54 | XMS_ITS | Patient Health Record ---
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 Phone Mayito WHITE, Glen Primary Care Provider Unavailab le Rebekah Dumont Unavailable [phone] Safia Larsen Unavailable [phone] Allergies Allergen (clinical drug ingredient) Drug/Non Drug [...] Derivatives fatigue Drug Allergy Active Substance with 2-ezvjkep-9-methylglu taryl-coenzyme A reductase inhibitor mechanism of action (substance) Statins myalgia Drug Allergy Active Reason For Referral No Information Medications Medication SIG (Take, Route, Frequency, Duration) Notes Start Date End Date Status Chlorzoxazone 500 MG Orally 4 times/ day Not-Taking Mens 50+ Multivitamin Active oxyCODONE-Acetaminophen 5-325 MG Orally every 6 hrs Not-Takin g oxyCODONE HCl 5 MG 1 tablet as needed Orally every 6 hrs Active dilTIAZem HCl 120 MG Orally Not-Taking Famotidine 40 MG as directed Orally Active Tamsulosin HCl 0.4 MG Orally 1 Active Fish Oil 1000 MG 1 capsule Orally Onc e a day Not-Taking MiraLax Active Augmentin 500-125 MG 1 tablet Orally Twi ce a day for 5 days 07/20/2023 Active Baby Aspirin Not-Junior ing Iron Active Benefiber Not-Taking Pregabalin 50 MG 1 capsule in the evening 1 to 3 hours before bedtime Orally Once a day Active Cyclobenzaprine HCl 10 MG 1 tablet at be dtime as needed Orally Once a day Not-Taking dilTIAZem HCl ER 240 MG 1 tablet Orally Once a day Active Gabapentin 600 MG 1 tablet Orally Once a day Not-Taking Eliquis 5 MG 1 tablet Orally Twic e a day Active Gabapentin 300 MG 1 capsule Orally Onc e a day Not-Taking Finasteride 5 MG Orally Act storm Lisinopril 10 MG 1 tablet Orally Once a day Not-Taking Lansoprazole 30 MG Orally A ctive Cephalexin 500 MG 1 capsule Orally every 12 hours for 10 days Not-Taking Magnesium 400 MG as directed Orally Active Social History Tobacco Use: Social History [...] Problem Status W/U Status Risk Notes Problem [id number] Neuropathy (G62.9) Active confirmed Problem Ulcer of toe of right foot (disorder) ([id number] 28178) Skin ulcer of toe of right foot, limited to breakdown of skin (L97.511) Active confirmed Problem 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 confirmed Response to treatment Vital Signs Blood pressure diastolic 77 mm Hg 09/28/2023 Height 6ft3in in 09/28/2023 Blood pressure systolic 120 mm Hg 09/28/2023 Weight 230 lbs 09/28/2023 BMI 28.74 kg/m2 09/28/2023 Encounters Encounter Location Date Provider Diagnosis [facility] [address] 07/20/2023 Safia Larsen Ingrown nail L60.0 [facility] [address] [address] 08/03/2023 Safia Perica Neuropathic ulcer of left foot with fat layer exposed L97.522 and Neuropathy G62.[address] [address] 09/28/2023 Safia Perica Fungal infection of nail 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 and Pain in left toe(s) M79.675 Assessments Encounter Date Diagnosis (ICD Code) Assessment Notes Treatment Notes Treatment Clinical Notes Section Notes 07/20/2023 Ingrown nail (ICD-10 - L60.0) 08/03/2023 Neuropathy (ICD-10 - G62.9) 08/03/2023 Neuropathic ulcer of left foot with fat layer exposed (ICD-10 - L97.522) Response to treatment Patient Educated with: WOUND CARE INSTRUCTIONS.p df (WOUND CARE INSTRUCTIONS.p df) 09/28/2023 Pain in left toe(s) (ICD-10 - M79.675) 09/28/2023 Fungal infection of nail (ICD-10 - B35.1) Rx management (4) Plan Of Treatment Pending Test Test Name Order Date X ray : Foot, left 2V 12/08/2015 X ray : Foot, right 2V 12/08/2015 03839- Debride <25 sq cm 10/05/2022 [id number] Benign Lesion 0.6-1.0 cm 0 09/21/2022 Insurance Providers Payer Name Payer Address Payer Phone Subscriber Number Group Number Insured Name Patient Relationship to Insured Coverage Start Date Coverage End Date Medicare [employer] [address] [place] [address] [id number] William Sanon Self - patient is the insured [email or web address] [address] [place] [address] [id number] William Sanon Self - patient is the insured Medical (General) History Medical History History ICD Code Anemia Arthritis Back,Hip,and Knee pain Broken bones Diverticulosis Joint implants/screws Hypertension Paralysis Poor circulation Sciatica Reflux Transfusions Pulmonary embolism Cancer Headaches/Migraines Numbness 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
--- OUTSIDE RECORDS SUMMARY | 2024-06-12 07:54 | XMS_ITS ---
[facility] Organization [facility] Address [address] [place] [address] Care Team Providers Care Labor Relations Representative Name Role Phone Glen Edmond MD Primary Care Provider Unavailab le Rebekah Dumont Unavailable [phone] NestorSafia meyers Unavailable [phone] Allergies Allergen (clinical drug ingredient) Drug/Non Drug [...] Derivatives fatigue Drug Allergy Active Substance with 8-qexbddk-8-methylglu taryl-coenzyme A reductase inhibitor mechanism of action (substance) Statins myalgia Drug Allergy Active REASON FOR VISIT Pcp-09/02, Fungal Nails Medications Medication SIG (Take, Route, Frequency, Duration) Notes Start Date End Date Status oxyCODONE-Acetaminophen 5-325 MG Orally every 6 hrs Not-Takin g dilTIAZem HCl 120 MG Orally Not-Taking Fish Oil 1000 MG 1 capsule Orally Onc e a day Not-Taking Baby Aspirin Not-Junior ing Chlorzoxazone 500 MG Orally 4 times/ day Not-Taking Cyclobenzaprine HCl 10 MG 1 tablet at be dtime as needed Orally Once a day Not-Taking Gabapentin 600 MG 1 tablet Orally Once a day Not-Taking Gabapentin 300 MG 1 capsule Orally Onc e a day Not-Taking Lisinopril 10 MG 1 tablet Orally Once a day Not-Taking Cephalexin 500 MG 1 capsule Orally every 12 hours for 10 days Not-Taking Mens 50+ Multivitamin Active oxyCODONE HCl 5 MG 1 tablet as needed Orally every 6 hrs Active Tamsulosin HCl 0.4 MG Orally 1 Active Augmentin 500-125 MG 1 tablet Orally Twi ce a day for 5 days 07/20/2023 Active Benefiber Not-Taking dilTIAZem HCl ER 240 MG 1 tablet Orally Once a day Active Eliquis 5 MG 1 tablet Orally Twic e a day Active Finasteride 5 MG Orally Act storm Lansoprazole 30 MG Orally A ctive Magnesium 400 MG as directed Orally Active Famotidine 40 MG as directed Orally Active MiraLax Active Iron Active Pregabalin 50 MG 1 capsule in the evening 1 to 3 hours before bedtime Orally Once a day Active Social History Tobacco Use: Social History Observation Description Date Details (start date - stop date) Former Smoker NA - NA Tobacco Use/Smoking Question Answer Notes Are you a: former smoker Additional Findings: Tobacco Non-User Current no n-smoker Tobacco use other than smoking: Question Answer Notes Are you an other tobacco user? No Vital Signs Height 6ft3in in 09/28/2023 Weight 230 lbs 09/28/2023 BMI 28.74 kg/m2 09/28/2023 Blood pressure systolic 120 mm Hg 09/28/19 24 Blood pressure diastolic 77 mm Hg 024 Encounters Encounter Location Date [facility] [address] [place] [address] 09/28/2023 Safia Larsen Fungal infection of nail B35.1 and Pain in left toe(s) M79.675 Assessments Encounter Date Diagnosis (ICD Code) Assessment Notes Treatment Notes Treatment Clinical Notes Section Notes 09/28/2023 Fungal infection of nail (ICD-10 - B35.1) Rx management (4) 09/28/2023 Pain in left toe(s) (ICD-10 - M79.675) Plan Of Treatment Next Appt Details Follow Up: prn, Reason: Progress Notes * William SANON GDOB:1950 (72 yo M)Acc No.[id number]:09/28/2023 Progress Note Patient:?William Sanon Provider:?Safia Larsen DPM :1950???Age:72 Y???Sex:Male Erasto e:09/28/2023 Address:[facility] [address], [facility] Pcp:Glen Edmond MD Subjective: * Chief Complaints: * ???Pcp-09/02Fungal Nails * HPI: ???Painful Nails:?Nature:?aching, tender, discolored, thick.?Location:?Great toe , Left foot.?Course:?worse.?Aggravated by:?shoegear causing difficulty standing/walking.? * ROS:?General/Constitutional:?Nausea?denies.?Vomiting?denies.?Hunger Thirst?denies.?Loss appetite?denies.?Chills?denies.?Fatigue?denies.?Fever?denies.?Night Sweats?denies.?Unexplained weight loss?denies.?Unexplained [...] than smoking?Are you an other tobacco user??No ???Miscellaneous:?Caffeine: yes, Tea in AM. ?Children: yes. ?Exercise: yes, Fly model airplanes, walking. ?Marital status: . 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 * Medications:?TakingFamotidin e 40 MG Tablet as directed Orally MiraLax Iron Pregabalin 50 MG Capsule 1 capsule in [...] Tablet 1 tablet Orally Twice a dayTaking Famotidine 40 MG Tablet as directed Orally Taking MiraLax Taking Iron Taking Pregabalin 50 MG [...] HClLisinopril: dizzinessyes[Allergies Verified] Objective: * Vitals:?Ht: 6ft3in, Wt:230, BMI:28.74, Shoe size: 12W, BP:120/77 mm Hg, Ht-cm: 190.5 cm, Wt-k.33 kg. * Examination: ???Nails: ?NAILS are:?Elongated, overgrown, dystrophic, lytic, greater than 3mm thick, discolored and friable with crumbly malodorous subungual debris, with pain on palpation , TA.? Assessment: * Assessment: 1.?Pain in left toe(s) - M79 .675?2.?Fungal infection of nail - B35.1, Rx management (4)? Plan: * Treatment: * Procedure Codes:? * Preventive Medicine:? ??Counseling:?Discussion:?-13: Office or other outpatient visit for the evaluation and management of an established patient, which required a medically appropriate history and/or examination and LOW level of DECISION MAKING for: 1 STABLE ACUTE UNCOMPLICATED PROBLEM, 2 OR MORE MINOR PROBLEMS, OR 1 STABLE CHRONIC PROBLEM, THAT POSE(S) A LOW RISK FOR MORBIDITY/MORTALITY. The visit on the day of the [...] have encouraged the patient to call the office.?Fungal Nail Counseling:?The patient was counseled on the diagnosis, potential etiologies (including, but not limited to, environmental factors, genetic, immune deficiency), and the multiple treatment options for Onychomycosis. We discussed the risks and benefits of each option from performing no treatment, to ultraviolet light shoe treatment, to laser nail treatment, to applying topical antifungals, to taking oral antifungal medication, to surgical removal of the involved nail(s) with or without performing a matricectomy, or any combination thereof. We discussed the advantages and disadvantages of each of possible treatment and importance for adherence to all the recommended therapies for optimum success. This includes the necessity for weekly emery board self nail home debridements, and control the nail and skin environment as much as possible by only using a fresh, dry pair of shoes/socks each day, as well as keeping the skin as dry as possible through the use of sprays/powders if necessary. The patient was instructed to discard the emery board after use to prevent reinfection of the involved nail(s). We discussed the mycological and visual clinical effectiveness of topical vs oral antifungal treatments as well as each ones potential side effects and/or any patient- specific medication interactions. We discussed the reasons behind the important requirement of regular liver function testing with oral antifungal therapy for safety. Patient questions regarding use, dosage, successful outcomes, blood tests, and possible pharmaceutical interactions were reviewed and the patient verbalized that all answers were clearly understood, The Pt prefers topical treatment.? * Follow Up:?prn * Images: * Sign off status: Completed true * Provider:?Safia Larsen DPM Date:? Generated for Jarad lopez/Christiano/Suzannesmitting on:?06/12/2024 07:54 AM EDT History and Physical Notes * HPI (History of Present Illness) Category Sub-Category Detail Notes Category Not es Painful Nails Aggravated by: shoegear causing difficulty standing/walking Course: worse Location: Great toe , Left chandni t Nature: aching, tender, disc olored, thick Examination Category Sub-Category Detail Notes Category Not es Nails NAILS are: Elongated, overg rown, dystrophic, lytic, greater than 3mm thick, discolored and friable with crumbly malodorous subungual debris, with pain on palpation , TA
== END ==
LOC: HO.CARD 07:50
PROVIDERS: PCP Family Medicine; Visit Provider Internal Medicine
DX: I77.810 Thoracic aortic ectasia (principal)
CPT/HCPCS: 93306; Q9957

== ENCOUNTER → 2024-06-12 07:53 | Outpatient (BNV) | payer MEDICARE, SELFPAY | PROVIDERS: PCP Family Medicine; Visit Provider Internal Medicine | DX: I42.2 Other hypertrophic cardiomyopathy (principal); I35.1 Nonrheumatic aortic (valve) insufficiency; I77.810 Thoracic aortic ectasia | CPT/HCPCS: 93306 ==

== ENCOUNTER 2024-06-19 08:43 | Outpatient (AMB) | payer MEDICARE, SELFPAY ==
--- NOTE | 2024-06-19 08:54 | A.OFFVIS_ITS ---
Vital Signs 06/19/24 08:57 Height 6 ft 3 in Weight 29 lb 15.726 oz BMI 3.7 BP 120/72 Blood Pressure Location Lt brachial Position Sitting Pulse 76 Pulse Source Monitor Intake Visit Reasons: 1 yr s/p echo Pearl Stringer Required: No Accompanied by: Self / Same As Patient Allergies almond Allergy (Mild, Verified 06/13/23 10:17) THROAT ITCHING sertraline Adverse Reaction (Severe, Verified 06/13/23 10:17) unresponsive Medication List - Last Reconciled 06/19/24 by Kyler Mata MD apixaban (Eliquis) 5 mg PO BID cyclobenzaprine 10 mg PO BEDTIME diltiazem HCl CD 240 mg PO DAILY finasteride 5 mg PO QAM gabapentin 600 mg PO BEDTIME lansoprazole 30 mg PO DAILY magnesium oxide 400 mg PO DAILY multivitamin 1 tab PO DAILY oxycodone 5 mg PO Q8H PRN tamsulosin 0.4 mg PO BEDTIME wheat dextrin (Benefiber Sugar Free (dextrin)) 1 packet PO DAILY HPI Comments Details: William returns for follow-up regarding atrial fibrillation. To recall, we had seen him originally in 2014. At that time, he was complaining of shortness of breath and chest tightness. He underwent cardiac catheterization that showed mild disease in LAD, but otherwise unremarkable coronaries. It was felt that his symptoms were noncardiac. Otherwise, he has paroxysmal atrial fibrillation and is maintained on diltiazem/Eliquis. History of beta-viet intolerance. For the most part he is doing fine. One hospitalization at [facility] few months back for chest pain. Seems he was ruled out for ACS and got discharged. Has not had any recurrent issues. [facility] Medical History Hx of skin cancer, basal cell Back pain Arthritis GERD (gastroesophageal reflux disease) Elevated cholesterol HTN (hypertension) DVT (deep venous thrombosis) Pulmonary embolism Mild ascending aorta dilatation Right bundle branch block Paroxysmal atrial fibrillation Surgical History History of esophagogastroduodenoscopy (EGD) H/O colonoscopy History of right inguinal hernia repair (08/16/22) History of left knee replacement History of umbilical hernia repair (03/13/17) History of revision of total knee arthroplasty History of total knee arthroplasty History of tonsillectomy History of spinal fusion (~04/14/20) History of cardiac catheterization (~09/23/14) Family History Father Pancreatic cancer Mother Alzheimer disease Social History Are you a primary career services director to a significant other at home: No Do you presently have visiting nurse or other home services: No Alcohol intake: never Patient Tobacco Use Status: Former Tobacco user Review of Systems Const Denies chills, Denies fatigue, Denies fever(s), Denies frequent falls, Denies weakness, Denies weight gain and Denies weight loss ENT Denies dizziness Card Denies chest pain, Denies leg edema, Denies lightheadedness, Denies palpitations, Denies dyspnea and Denies dyspnea on exertion Resp Denies cough, Denies dyspnea and Denies dyspnea on exertion GI Denies hematochezia Musc Denies abnormal gait, Denies muscle weakness, Denies numbness, Denies radiating pain into limb and Denies tingling Neuro Denies abnormal gait, Denies dizziness, Denies frequent falls, Denies numbness, Denies tingling and Denies weakness Endo Denies fatigue and Denies palpitations Physical Exam Vital Signs: Last Vital Signs Pulse 76 06/19/24 08:57 BP 120/72 06/19/24 08:57 BMI result Body Mass Index 3.7 Const General: comfortable and no acute distress Orientation/consciousness: patient oriented x3 HEENT Other: Unremarkable Head: Yes normal to inspection Neck Neck: Yes normal visual inspection Chest Chest palpation & inspection: normal inspection of the chest Resp Auscultation: clear to auscultation bilaterally Cardio Palpation: normal PMI Heart sounds: S1 normal heart sound present, S2 normal heart sound present, no gallops, no murmurs and no rubs GI Palpation (GI): Soft to palpation Back/Spine/Pelvis Other: unremarkable Skin General skin exam: no rashes or lesions noted Neuro General: patient oriented x3 Extrem General: Yes normal to inspection Psych Mental Status: mental status grossly normal Office Procedures EKG Details: EKG with underlying sinus rhythm at 76/Min; leftward axis; right bundle-branch block pattern; minimal criteria for LVH; [place]. [id number], Complete Assessment & Plan Assessment & Plan (1) Precordial chest pain: Code(s): R07.2 - Precordial pain Category: Medical Plan: Uncertain etiology. No recurring issues. Obtain pharmacological stress test to evaluate for ischemia. (2) Paroxysmal atrial fibrillation: Code(s): I48.0 - Paroxysmal atrial fibrillation Category: Medical Plan: Stable. Remains on diltiazem/Eliquis. (3) Right bundle branch block: Code(s): I45.10 - Unspecified right bundle-branch block Category: Medical Plan: Stable. (4) Mild ascending aorta dilatation: Code(s): I77.810 - Thoracic aortic ectasia Category: Medical Plan: Per [facility] CT scan, ascending aortic size 4.3 cm. On the echocardiogram, also 4.3 cm. Stable. (5) HTN (hypertension): Code(s): I10 - Essential (primary) hypertension Category: Medical Plan: No recent concerns. Plan I discussed with the patient the plan to conduct a chemical stress test to investigate potential coronary artery disease. The rationale is based on the previous episode of chest pain and changes in cardiovascular risk factors with age. We discussed the procedure, including the risks and benefits. I reassured the patient about the stability of his history with atrial fibrillation, which has not presented issues recently. Follow-up plans will be determined based on the outcome of the stress test. Patient was informed and verbally consented to the use of an ambient scribe for clinic note documentation during this visit. Patient Instructions: - Proceed with the scheduled chemical stress test to evaluate heart health. - Report any new or recurring chest pain or other concerning symptoms immediately. - Follow lifestyle recommendations supportive of cardiovascular health. - Attend follow-up appointments as advised based on test results. Coding Level of Care Code Est Pt Level 4 (79438) Complex EM visit Add On G2211 Diagnoses Precordial chest pain R07.2 Paroxysmal atrial fibrillation I48.0 Right bundle branch block I45.10 Mild ascending aorta dilatation I77.810 HTN (hypertension) I10 CPT Codes EKG - CPT: 37322-[id number], Complete ([id number])
[2024-06-19 08:57] VITALS: BP 120/72; PULSE 76
--- OUTSIDE RECORDS SUMMARY | 2024-06-19 09:02 | XMS_ITS | Patient Health Record ---
Author Organization [facility] Address [address] [place] [address] Care Team Providers Care Bacteriologist Industrial Name Role Phone Mayito WHITE, Glen Primary Care Provider Unavailab Brooks Robles [phone] Allergies Allergen (clinical drug ingredient) Drug/Non Drug Allergy documented on EMR Reaction Allergy Type Onset Date Status sertraline Sertraline Unknown Drug Allergy Activ e Results Component Value Reference Range Notes Pathology Reviewed date:01/22/2024 09:30:36 AM Interpretation: Performing Lab:[facility], [address] [place] [id number] Notes/Report: Name: Casey Sanon Age/Sex: 72/M : 1950 Unit#: [id number] Attend Dr: Brooks Barbour MD Re09/10/23 Status : [facility] Location: [facility] Disch: SPEC : [id number] REC STATUS: TETE MERINO NUM: [id number] [place]: 09/10/23-900 [facility] [address]: Brooks Barbour MD ENTERED: 09/10/23-10 30 [...] B. CEDS Copies To: Glen Edmond MD [address] [place] [address] [address] [place] [address] Brooks Barbour MD [address] [place] [address] CONTINUED ON NEXT PAGE Name: Casey Sanon Age/Sex: 72/M : 1950 Unit#: [id number] Attend Dr: Brooks Barbour MD Re09/10/23 Status : [facility] Location: [facility] Disch: SPEC : [id number] RECD : 09/10/23 STATUS: TETE MERINO NUM: [id number] [place]: 09/10/23-900 [facility] [address]: Brooks Barbour MD ENTERED: 09/10/23 SP [...] Status Risk Notes Problem Colon cancer screening (911138358) Colon cancer screening (Z12.11) Active confirmed Problem 26608615 Epigastric abdominal pain (R10.13) Active confirmed Problem 09931894 Epigastric pain (R10.13) Active confirmed Problem 633707405 Encounter for screening for malignant neoplasm of colon (Z12.11) Active confirmed Problem 87585397 Acute gastric ulcer without hemorrhage or perforation (K25.3) Active confirmed Problem Right lower quadrant pain (963984048) Abdominal pain, bilateral lower quadrant (R10.31) Active confirmed Problem Iron deficiency anemia (86216445) Iron deficiency anemia (D50.9) Active confirmed Problem 348043943 Gastroesophageal reflux disease without esophagitis (K21.9) Active confirmed Problem 087935729 Iron deficiency anemia due to chronic blood loss (D50.0) Active confirmed Problem Pancreatic cyst (24687590) Pancreatic cyst (K86.2) Active confirmed Problem 54582923 Iron deficiency anemia, unspecified iron deficiency anemia type (D50.9) Active confirmed Problem 197200664 Hx of adenomatou s colonic polyps (Z86.010) Active confirmed Problem Gastric ulcer (835460269) Gastric ulcer (K25.9) Active confirmed Problem 06248248960978947 Abnormal ultrasound of abdomen (R93.5) Active confirmed Problem 0836686 Pancreatic abnormality (Q45.3) Active confirmed Problem Atrophic gastritis (93595559) Antral gastritis (K29.50) Active confirmed Vital Signs Blood pressure diastolic 00 mm Hg 01/22/2024 Height 75 in 01/22/2024 Blood pressure systolic 00 mm Hg 01/22/2024 Weight 247 lbs 01/22/2024 BMI 30.87 kg/m2 01/22/2024 Encounters Encounter Location Date Provider Diagnosis [facility] Outpatient [address] [place] [id number] 09/10/2023 Brooks Barbour Encounter for screen ing colonoscopy Z12.11 ; Colon polyps K63.5 ; Hiatal hernia K44.9 and Antral gastritis K29.50 [facility] [address] [facility] [address] [place] [phone] 01/22/2024 Brooks Barbour Gastroesophageal ref lux disease without esophagitis K21.9 ; Epigastric abdominal pain R10.13 ; Gastric ulcer K25.9 and Abdominal pain, bilateral lower quadrant R10.31 [facility] [address] [phone] 09/09/2023 Brooks Barbour [facility] [address] [phone] 01/18/2024 Brooks Barbour Assessments Encounter Date Diagnosis [...] or at least see you or his die cleaner for evaluation. At this point, given his [...] or at least see you or his die cleaner for evaluation. At this point, given his [...] or at least see you or his die cleaner for evaluation. At this point, given his [...] or at least see you or his die cleaner for evaluation. At this point, given his [...] Name:Brooks Gastelum Angle , 07/22/2024 09:30:00 AM, [address] [place] [address], [address], [place], [address], Insurance Providers Payer Name Payer Address Payer Phone Subscriber Number Group Number Insured Name Patient Relationship to Insured Coverage Start Date Coverage End Date [place] [address] [place] [address] [id number] JOSEPH CASEY Self - patient is the insured [employer] ATTN CLAIMS [address] [place] [address] [phone] [id number] CASEY SANON Self - patient is the insured Medical (General) History Medical History History ICD Code Denies [place],DM,CVA,Lung disease,renal dise ase GERD-EGD in 1999--tiny area [...] March of 2023. He saw Dr. Ocampo [facility] GI department who did not think he [...]
--- OUTSIDE RECORDS SUMMARY | 2024-06-19 09:03 | XMS_ITS | Data Portability ---
Author Organization [facility] Address [address] [place] [address] Assessment No assessment recorded. Plan of Treatment [...] By Organization Details Last Modified Time 05/26/2016 [id number] PCPand cards f/u in 1-2 weeks Not available 05/27/2016 16:25:50 Reason for Referral None Reported. Medical Equipment None Reported. Allergies Allergen ID Allergen Name Allergen Category Reaction Reaction Severity Criticality Documentation Date Start Date Code Code System Note Provider Name and Address Organization Details Recorded Time 231120 Product containin g 3-hydroxy -3-methyl glutaryl- coenzyme A reductase inhibitor (product) medicatio n Not available Not available Not available 05/22/2016 81128 009 SNOMED Annie Galarza MD [address] [place] [address], [phone], [facility] 7 12:28:23 122121 almond allergeni c extract food Not available Not available Not available 05/22/2016 05267 7 RxNorm Annie Galarza MD [address] [place] [address], [phone], [facility] 7 12:28:32 Vitals Date Recorded Body temperature Heart rate Systolic blood pressure Diastolic blood pressure Provider Name and Address Organization Details Last Updated DateTime 05/22/2016 97 [degF] 76 /min 135 mm[Hg] 65 mm[Hg] Annie Galarza MD [address] [place] [address], [phone] , [facility] 05/22/2016 12:27:08 Date Recorded Body temperature Systolic blood pressure Diastolic blood pressure Provider Name and Address Organization Details Last Updated DateTime 05/24/2016 97 [degF] 133 mm[Hg] 64 mm[Hg] Annie Galarza MD [address] [place] [address], [phone] 05/24/2016 15:33:47 Date Recorded Body temperature Heart rate Systolic blood pressure Diastolic blood pressure Provider Name and Address Organization Details Last Updated DateTime 05/26/2016 97 [degF] 62 /min 131 mm[Hg] 52 mm[Hg] Annie Galarza MD [address] [place] [address], [phone] [facility] 05/27/2016 16:22:01 Social History Question Answer Notes LastModified by Organizat ion Details LastModified Time Tobacco Smoking Status Never Smoker Annie Galarza MD [address] [place] [address], [phone] 05/22/2016 12:28:51 How Much Tobacco Do You Smoke? No Information not available 05/22/2016 Sex: Unknown Functional Status None recorded. Mental Status None recorded. Family History Nothing Reported. Medical History No medical history recorded. Past Encounters Encounter ID Performer Location Encounter Start Date Encounter Closed Date Diagnosis/Indication Diagnosis SNOMED-CT Code Diagnosis ICD10 Code Diagnosis Note [id number] Annie Galarza MD [facility] [address] [facility] [place] [address] 05/22/2016 12:01:25 05/23/2016 08:14:01 Spinal stenosis of lumbar region 67230901 M48.06 post op, on oxycontine -rx for oxycontine 30 mg po q12hrs 60 tabs is given,cont diluadid, tylenol,ne urontine, cont valium prnfor spasms Essential hypertension 48689813 I10 cont cardizem,m etoprolol- hypotensio n resolved Atrial flutter 2084207 I 48.92 will start on apixaban today , cards f/u Benign pro static hyperplasia without outflow obstruction 469534361 N40.0 cont tamsulosin ,flomax Gastroesop hageal reflux disease without esophagitis 333552050 K21.9 cont ppi [id number] Annie Galarza MD [facility] [address] [place] [address] 05/24/2016 15:04:05 05/29/2016 08:32:49 Spinal stenosis of lumbar region 98150978 M48.06 post op, on oxycontine - 30 mg q12, wasnot reduced , rx was replaced with 30 mg one tabs instead of 3 tabs of 10 mg, patient has dilaudid prn order that he did not utilized - instructed to ask for it and take before PT/OT [id number] Annie Galarza MD [facility] [address] [place] [address] 05/26/2016 11:26:10 05/29/2016 08:36:38 Spinal stenosis of lumbar region 65323841 M48.06 doing well, will go home with dilaudid 74tabs- no Rx given, valium 12 tabs of 5 mg and rx for 20 tabs, oxycontine 6 tabs and RX 20 tabs Essential hypertension 10955765 I10 cont cardizem,m etoprolol- hypotensio n resolved. RX for dilatiazem is given, cards f/u Atrial flutter 0007568 I 48.92 cont apixaban , rx given Benign pro static hyperplasia without outflow obstruction 237485177 N40.0 cont tamsulosin ,flomax Gastroesop hageal reflux disease without esophagitis 135810478 K21.9 cont ppi Health Concerns Section Related Observation LastModified by Organization Detai ls LastModified Time None Recorded Concern Status LastModified by Organization Details LastModified Time None Recorded Advance Directives Directive None Recorded Payers Encounter Date Sequence Insurance Name Policy Number Policy Love Covered Member ID Love Member ID Guarantor Name 05/22/2016 1 [place] [employer] William Olimpia Fab [id number] William Sanon 05/24/2016 1 [place] [employer] William Sanon [id number] William Sanon 05/26/2016 1 [place] [employer] William Sanon [id number] T William Sanon Notes Date Note Type Note Provider Name and Address Organization Details Recorded Time 05/22/2016 text/html seen for admissi on to - came from [facility] where pt had T11 to pelvic fusion, laminectomy L3-4. Post op pt had atrial flatter and was startedon cardiazem and on toprol, pt will start apixaban on POD 10. Post opp ptwasdehydrated and treated with IV fluids,had decrease in Na to 131- all improved.Pt cameto for further care Annie Galarza MD [address] [place] [address], [phone], [facility] 05/22/2016 12:43:09 05/24/2016 text/html asked to see by patient - stated his post op back pain isnot controlled and his oxycontine was decreased. Annie Galarza MD [address] [place] [address], [phone], [facility] 05/27/2016 16:21:25 05/26/2016 text/html seen for d/c - c napoleon from [facility] where pt had T11 to pelvic fusion, [...] going home am Annie Galarza MD [address] [place] [address], [phone], [facility] 05/27/2016 16:26:30
--- OUTSIDE RECORDS SUMMARY | 2024-06-19 09:03 | XMS_ITS ---
Author Organization [facility] Address [address] [place] [address] Care Team Providers Care Core Cleaner Name Role Phone Mayito WHITE, Glen Primary Care Provider Brooks Gee Unavailable [phone] Allergies Allergen (clinical drug ingredient) Drug/Non Drug [...] Risk Notes Problem Right lower quadrant pain (681019616) Abdominal pain, bilateral lower quadrant (R10.31) Active confirmed Vital Signs Blood pressure systolic 00 mm Hg 01/22/20 24 Blood pressure diastolic 00 mm Hg 024 Height 75 in 01/22/2024 Weight 247 lbs 01/22/2024 BMI 30.87 kg/m2 01/22/2024 Encounters Encounter Location Date Provider Diagnosis [facility] [address] [place] [address] 01/22/2024 Brooks Barbour Gastroesophageal ref lux disease [...] or at least see you or his drier tender naphthalene for evaluation. At this point, given his [...] or at least see you or his drier tender naphthalene for evaluation. At this point, given his [...] or at least see you or his drier tender naphthalene for evaluation. At this point, given his [...] or at least see you or his drier tender naphthalene for evaluation. At this point, given his [...] Provider Name:Brooks Barbour , 07/22/2024 09:30:00 AM, [address] [place] [address], [address], [place], [address], Progress Notes * CASEY RUIZ GDOB:1950 (73 yo M)Acc No.[id number]:01/22/2024 Progress Notes Patient:?CASEY RUIZ Provider:?Brooks Barbour MD :1950???Age:73 Y???Sex:Male Erasto e:01/22/2024 Address:[address] [place], [place] [id number] Pcp:Glen Edmond MD Subjective: * Chief Complaints: [...] or at least see you or his drier tender naphthalene for evaluation. At this point, given his [...] Procedure Codes:?3017F COLOR ECTAL CA SCREEN DOC FMQ4797Q TOBACCO NON-WOWPA8016 BP SCR NOT PRFRM REC REASON NOS [...] MD Date:? 024 Generated for Jarad lopez/Christiano/eTransmitting on:?06/19/2024 09:02 AM EDT History and Physical Notes * [...]
--- OUTSIDE RECORDS SUMMARY | 2024-06-19 09:03 | XMS_ITS ---
Author Organization [facility] Address [address] [place] [address] Care Team Providers Care Custom Car Builder Name Role Phone Glen Edmond MD Primary Care Provider Unavailab le Rebekah Dumont Unavailable [phone] NestorSafia meyers Unavailable [phone] Allergies Allergen (clinical drug ingredient) Drug/Non Drug [...] Derivatives fatigue Drug Allergy Active Substance with 5-noflsbk-6-methylglu taryl-coenzyme A reductase inhibitor mechanism of action [...] 024 Encounters Encounter Location Date [facility] [address] [place] [address] 09/28/2023 Safia Larsen Fungal infection of nail [...] * William SANON GDOB:1950 (72 yo M)Acc No.[id number]:09/28/2023 Progress Note Patient:?William Sanon Provider:?Safia Larsen DPM :1950???Age:72 Y???Sex:Male Erasto e:09/28/2023 Address:[facility] [address], [facility] Pcp:Glen Edmond MD Subjective: * Chief Complaints: [...] status: . 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 * Medications:?TakingFamotidin e 40 MG Tablet as [...] Larsen DPM Date:? Generated for Jarad lopez/Christiano/Suzannesmitting on:?06/19/2024 09:03 AM EDT History and Physical Notes * [...]
--- OUTSIDE RECORDS SUMMARY | 2024-06-19 09:03 | XMS_ITS ---
Author Organization [facility] Address [address] [place] [address] Care Team Providers Care Breaker Mechanic Name Role Phone Mayito WHITE, Glen Primary Care Provider UnavailBrooks Main [phone] REASON FOR VISIT ?ulcer Encounters Encounter Location Date Provider Diagnosis [facility] [address] [place] [address] 01/18/2024 Brooks Barbour Plan Of Treatment Next Appt Details Provider Name:Brooks Barbour , 07/22/2024 09:30:00 AM, [address], [address], [place], [address], Progress Notes * CASEY RUIZ GDOB:1950 (73 yo M)Acc No.[id number]:01/18/2024 Patient:?CASEY RUIZ :1950???Age:73 Y???Sex:Male Address:[address] [place] [address] Subjective: * Chief Complaints: * ?ulcer * Medical History:? * Surgical History:? * Hospitalization/Major Diagno stic Procedure:? * Medications:? Objective: Assessment: Plan: * Treatment: * Procedure Codes:? * true * Date:? Generated for Jarad lopez/Christiano/eTransmitting on:?06/19/2024 09:03 AM EDT
--- OUTSIDE RECORDS SUMMARY | 2024-06-19 09:03 | XMS_ITS | Patient Health Record ---
Author Organization [facility] Address [address] [place] [address] Care Team Providers Care Canvas Baster Jumpbasting Name Role Phone Mayito WHITE, Glen Primary Care Provider Unavailab le Rebekah Dumont Unavailable [phone] Safia Larsen Unavailable [phone] Allergies Allergen (clinical drug ingredient) Drug/Non Drug [...] Derivatives fatigue Drug Allergy Active Substance with 4-igvmmaq-8-methylglu taryl-coenzyme A reductase inhibitor mechanism of action [...] Problem Status W/U Status Risk Notes Problem 955461194 Neuropathy (G62.9) Active confirmed Problem Ulcer of toe of right foot (disorder) (484435800349 90882) Skin ulcer of toe of right foot, [...] 09/28/2023 Encounters Encounter Location Date Provider Diagnosis [facility] [address] 07/20/2023 Safia Larsen Ingrown nail L60.0 [facility] [address] [address] 08/03/2023 Safia Perica Neuropathic ulcer of left foot with fat layer exposed L97.522 and Neuropathy G62.[address] [address] 09/28/2023 Safia Perica Fungal infection of nail [...] X ray : Foot, right 2V 12/08/2015 42873- Debride <25 sq cm 10/05/2022 30364-Nkxzicq Benign Lesion 0.6-1.0 cm 0 09/21/2022 Insurance Providers Payer Name Payer Address Payer Phone Subscriber Number Group Number Insured Name Patient Relationship to Insured Coverage Start Date Coverage End Date Medicare National [employer]t [employer] [address] [place] [address] [id number] William Sanon Self - patient is the insured [employer] [address] [place] [address] [id number] William Sanon Self - patient is the insured Medical (General) History Medical History History ICD Code Anemia Arthritis Back,Hip,and Knee pain Broken bones Diverticulosis Joint implants/screws Hypertension Paralysis Poor circulation Sciatica Reflux Transfusions Pulmonary embolism Cancer Headaches/Migraines Numbness Guilliam [place] Syndrome Paroxysmal atrial fibrillation Unliateral Inguinal Hernia, [...]
--- OUTSIDE RECORDS SUMMARY | 2024-06-19 09:03 | XMS_ITS ---
Author Organization [facility] Address [address] [place] [address] Care Team Providers Care Reference Librarian Name Role Phone Mayito WHITE, Glen Primary Care Provider Unavailab Brooks Robles [phone] REASON FOR VISIT screening,hx polyps,acute gastric uler w/o hemorrhage Problems Problem Type SNOMED Code ICD Code Onset Dates Problem Status W/U Status Risk Notes Problem Atrophic gastritis (31886624) Antral gastritis (K29.50) Active confirmed Encounters Encounter Location Date Provider Diagnosis [facility] Outpatient [address] [place], [place] [phone] 09/10/2023 Brooks Barbour Encounter for scre ening [...] Provider Name:Brooks Barbour , 07/22/2024 09:30:00 AM, [address] [place] [address], [address], [place], [address], Progress Notes * CASEY RUIZ GDOB:1950 (73 yo M)Acc No.[id number]:09/10/2023 EGD and COL/MAC Patient:?CASEY RUIZ Provider:?Brooks Barbour MD :1950???Age:72 Y???Sex:Male Erasto e:09/10/2023 Address:[address] [place], [place] [id number] Pcp:Glen Edmond MD Subjective: * Chief Complaints: * ???1. Screening,hx polyps,ac lora gastric uler w/o hemorrhage. * Medical History:? Objective: * Vitals:? Assessment: * Assessment: 1.?Encounter for screening c olonoscopy - Z12.11 (Primary)???2.?Colon polyps - K63.5???3.?Hiatal hernia - K44.9???4.?Antral gastritis - K29.50??? Plan: * Treatment: * Procedure Codes:?15238 LESIO N REMOVAL COLONOSCOPY, Modifiers: PT , 0529F INTRVL 3+YRS PTS CLNSCP DOCD, Modifiers: 8P , 0528F RCMND FLW-UP 10 YRS DOCD, Modifiers: 8P , 86769 UPPR GI ENDOSCOPY, DIAGNOSIS * * The named appointment provid er may or may not be the originator of this progress note, and it is not deemed complete until electronically signed by the appointment provider. Sign off status: Pending * Provider:?Brooks Barbour MD Date:? 024 Generated for Jarad lopez/Christiano/Suzannesmitting on:?06/19/2024 09:03 AM EDT
--- OUTSIDE RECORDS SUMMARY | 2024-06-19 09:03 | XMS_ITS ---
Author Organization [facility] Address [address] [address] Care Team Providers Care Bridal Consultant Name Role Phone Glen Edmond MD Primary Care Provider Unavailab le Rebekah Dumont Unavailable [phone] NestorSafia meyers Unavailable [phone] Allergies Allergen (clinical drug ingredient) Drug/Non Drug [...] Derivatives fatigue Drug Allergy Active Substance with 5-tzivjcd-7-methylglu taryl-coenzyme A reductase inhibitor mechanism of action [...] (L97.522) Active confirmed Response to treatment Problem 803434182 Neuropathy (G62.9) Active confirmed Vital Signs Height 6ft3in in 08/03/2023 Weight 235 lbs 08/03/2023 BMI 29.37 kg/m2 08/03/2023 Blood pressure systolic 127 mm Hg 08/03/19 24 Blood pressure diastolic 77 mm Hg 024 Encounters Encounter Location Date Provider Diagnosis [facility] [address] [place] [address] 08/03/2023 Safia Larsen Neuropathic ulcer of left [...] of the wound post debridement is stable (43205) , The patient is to apply Antibiotic Oint. to the wound and cover with a DSD , The patient is to cont the local wound care as directed till condition is completely healed Progress Notes * William SANON GDOB:1950 (72 yo M)Acc No.[id number]:08/03/2023 Progress Notes Patient:?William Sanon Provider:?Safia Larsen DPM :1950???Age:72 Y???Sex:Male Erasto e:08/03/2023 Address:[address] [place], [place] [id number] Pcp:Glen Edmond MD Subjective: * Chief Complaints: [...] ?Marital status: . 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 * Medications:?TakingMiraLax I quin Pregabalin 50 MG [...] of the wound post debridement is stable (06141) , The patient is to apply Antibiotic Oint. to the wound and cover with a DSD , The patient is to cont the local wound care as directed till condition is completely healed.? * Procedure Codes:?39324 DEBRI DE SKIN/TISSUE, Modifiers: XS * Preventive [...] and the need for a consult to [facility] for evaluation for Medtr[employer] insertion.?Neuritis/Neuropathy:?The [...] Larsen, MCKENNAM Date:? Generated for Jarad lopez/Christiano/eTransmitting on:?06/19/2024 09:02 AM [...]
--- OUTSIDE RECORDS SUMMARY | 2024-06-19 09:03 | XMS_ITS ---
Author Organization [facility] Address [address] [place] [address] Care Team Providers Care Marketing Intelligence Manager Name Role Phone Glen Edmond MD Primary Care Provider Unavailab le Rebekah Dumont Unavailable [phone] NestorSafia meyers Unavailable [phone] Allergies Allergen (clinical drug ingredient) Drug/Non Drug [...] Derivatives fatigue Drug Allergy Active Substance with 8-bosxngh-1-methylglu taryl-coenzyme A reductase inhibitor mechanism of action [...] 024 Encounters Encounter Location Date Provider Diagnosis [facility] [address] [address] 07/20/2023 Safia Larsen Ingrown nail L60.0 Assessments Encounter Date [...] * JOSEPH William GDOB:1950 (72 yo M)Acc No.[id number]:07/20/2023 Progress Note Patient:?William Sanon Provider:?Safia Larsen DPM :1950???Age:72 Y???Sex:Male Erasto e:07/20/2023 Address:[address] [place], [place] [address] Pcp:Glen Edmond MD Subjective: * Chief Complaints: [...] ?Marital status: . 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 * Medications:?TakingMiraLax I quin Pregabalin 50 MG [...] to take their prophylactic Abx.? * Procedure Codes:?08503 REMOV AL OF NAIL BED * Follow Up:?2-4 Weeks * Images: * Sign off status: Completed true * Provider:?Safia Larsen DPM Date:?12/2023 Generated for Jarad lopez/Christiano/Rejiitting on:?06/19/2024 09:03 AM EDT History and Physical Notes * Examination Category Sub-Category Detail Notes Category Not es Ingrown Nail INSPECTION: Reveals incurvat ion, pain on palpation, groove hypertrophy, Medial nail border, TA
== END 2024-06-19 09:19 | disposition home or self-care (01) ==
LOC: HO.HCS 08:43
PROVIDERS: PCP Family Medicine; Visit Provider Internal Medicine
DX: R07.2 Precordial pain (principal); I48.0 Paroxysmal atrial fibrillation; I45.10 Unspecified right bundle-branch block; I77.810 Thoracic aortic ectasia; I10 Essential (primary) hypertension
CPT/HCPCS: 93010; 99214; G2211

== ENCOUNTER → 2024-06-19 08:43 | Outpatient (BNVA) | payer MEDICARE, SELFPAY | PROVIDERS: PCP Family Medicine; Visit Provider Internal Medicine | DX: R07.2 Precordial pain (principal); I48.0 Paroxysmal atrial fibrillation; I10 Essential (primary) hypertension; I45.10 Unspecified right bundle-branch block; I77.810 Thoracic aortic ectasia; Z79.01 Long term (current) use of anticoagulants | CPT/HCPCS: 93005; 99212 ==

== ENCOUNTER → 2024-07-04 09:22 | Outpatient (BNVA) | payer MEDICARE, SELFPAY | PROVIDERS: PCP Internal Medicine; Visit Provider Internal Medicine | DX: Z13.89 Encounter for screening for other disorder (principal) ==

== ENCOUNTER 2024-12-29 09:13 | Outpatient (AMB) | payer MEDICARE, SELFPAY ==
[2024-12-29 09:17] VITALS: BP 120/70; PULSE 71; BMI 30.2
--- NOTE | 2024-12-29 09:17 | MHC.OFFVIS ---
Vital Signs 12/29/24 09:17 Height 6 ft 3 in Weight 241 lb 10.026 oz BMI 30.2 BP 120/70 Blood Pressure Location Lt brachial Position Sitting Pulse 71 Pulse Source Pulse Oximeter Intake Visit Reasons: 6 mth/ MIBI Anatomic Pathologist Required: No Accompanied by: Spouse Allergies almond Allergy (Mild, Verified 12/29/24 09:20) THROAT ITCHING sertraline Adverse Reaction (Severe, Verified 12/29/24 09:20) unresponsive Medication List - Last Reconciled 12/29/24 by Kyler Mata MD apixaban (Eliquis) 5 mg PO BID buprenorphine 15 mcg/hour 1 patch transdermal QWEEK diltiazem HCl CD 240 mg PO DAILY finasteride 5 mg PO QAM fluticasone propionate 50 mcg/actuation (Allergy Relief (fluticasone)) 1 spray intranasal DAILY gabapentin 600 mg PO BEDTIME lansoprazole 30 mg PO DAILY magnesium oxide 400 mg PO DAILY multivitamin 1 tab PO DAILY oxycodone 5 mg PO Q8H PRN tamsulosin 0.4 mg PO BEDTIME wheat dextrin (Benefiber Sugar Free (dextrin)) 1 packet PO DAILY HPI Comments Details: William returns for follow-up regarding atrial fibrillation. He is maintained on a combination of diltiazem and Eliquis and has been doing fine in that regard. He has not had any recent issues with atrial He underwent cardiac catheterization in 2014 for chest tightness and that showed mild disease in the LAD but otherwise unremarkable. Last year, he had admission to [facility] for chest pain and ruled out for ACS. We had discussed about pursuing a stress test but not materialized as yet. Overall, he states he feels good. No new concerns. [facility] Medical History Hx of skin cancer, basal cell Back pain Arthritis GERD (gastroesophageal reflux disease) Elevated cholesterol HTN (hypertension) DVT (deep venous thrombosis) Pulmonary embolism Mild ascending aorta dilatation Right bundle branch block Paroxysmal atrial fibrillation Surgical History History of esophagogastroduodenoscopy (EGD) H/O colonoscopy History of right inguinal hernia repair (08/16/22) History of left knee replacement History of umbilical hernia repair (03/13/17) History of revision of total knee arthroplasty History of total knee arthroplasty History of tonsillectomy History of spinal fusion (~04/14/20) History of cardiac catheterization (~09/23/14) Family History Father Pancreatic cancer Mother Alzheimer disease Social History Are you a primary respiratory care specialist to a significant other at home: No Do you presently have visiting nurse or other home services: No Alcohol intake: never Patient Tobacco Use Status: Former Tobacco user Review of Systems Const Denies daytime sleepiness, Denies difficulty sleeping, Denies snoring, Denies stops breathing during sleep and Denies weakness Card Denies chest pain, Denies rapid heart rate, Denies irregular heart rhythm, Denies claudication, Denies leg edema, Denies lightheadedness, Denies palpitations, Denies dyspnea, Denies dyspnea on exertion, Denies orthopnea, Denies paroxysmal nocturnal dyspnea and Denies slow heart rate Resp Denies cough, Denies dyspnea, Denies dyspnea on exertion and Denies snoring GI Reports no additional complaints, Denies hematochezia, Denies change in stool character and Denies dyspepsia Musc Denies abnormal gait, Denies muscle weakness and Denies numbness Neuro Denies abnormal gait, Denies numbness and Denies weakness Endo Denies palpitations Physical Exam Vital Signs: Last Vital Signs Pulse 71 12/29/24 09:17 BP 120/70 12/29/24 09:17 BMI result Body Mass Index 30.2 Const General: comfortable and no acute distress Orientation/consciousness: patient oriented x3 HEENT Other: Unremarkable Head: Yes normal to inspection Neck Neck: Yes normal visual inspection Chest Chest palpation & inspection: normal inspection of the chest Resp Auscultation: clear to auscultation bilaterally Cardio Palpation: normal PMI Heart sounds: S1 normal heart sound present, S2 normal heart sound present, no gallops, no murmurs and no rubs GI Palpation (GI): Soft to palpation Back/Spine/Pelvis Other: unremarkable Skin General skin exam: no rashes or lesions noted Neuro General: patient oriented x3 Extrem General: Yes normal to inspection Psych Mental Status: mental status grossly normal Assessment & Plan Assessment & Plan (1) Precordial chest pain: Code(s): R07.2 - Precordial pain Category: Medical Plan: Hospitalized last year for the same but no recent issues. Consider pharmacological stress test Lexiscan. He will not be able to exercise on the treadmill. (2) Paroxysmal atrial fibrillation: Code(s): I48.0 - Paroxysmal atrial fibrillation Category: Medical Plan: Stable. Remains on diltiazem/Eliquis. (3) Right bundle branch block: Code(s): I45.10 - Unspecified right bundle-branch block Category: Medical Plan: Stable. (4) Mild ascending aorta dilatation: Code(s): I77.810 - Thoracic aortic ectasia Category: Medical Plan: Per [facility] CT scan, ascending aortic size 4.3 cm. On the echocardiogram, also 4.3 cm. Stable. (5) HTN (hypertension): Code(s): I10 - Essential (primary) hypertension Category: Medical Plan: Stable. Plan Discussion Notes I discussed with the patient the plan to conduct a chemical stress test to assess his cardiac function, given his difficulty with physical exertion on a treadmill. We also reviewed his history of atrial fibrillation, noting its stability and the absence of significant recent episodes. Patient was informed and verbally consented to the use of an ambient scribe for clinic note documentation during this visit. Orders: Orders CA lexiscan stress w yolette Today I20.9 - Angina pectoris, unspecified NM cardiolite stress test Today R07.2 - Precordial pain Patient Instructions: - Attend the scheduled chemical stress test as planned. - Monitor for any new or worsening symptoms and report them promptly. Coding Level of Care Code Est Pt Level 4 (95556) Complex EM visit Add On G2211 Diagnoses Precordial chest pain R07.2 Paroxysmal atrial fibrillation I48.0 Right bundle branch block I45.10 Mild ascending aorta dilatation I77.810 HTN (hypertension) I10
== END 2024-12-29 09:38 | disposition home or self-care (01) ==
LOC: HO.HCS 09:14
PROVIDERS: PCP Internal Medicine; Visit Provider Internal Medicine
DX: R07.2 Precordial pain (principal); I48.0 Paroxysmal atrial fibrillation; I45.10 Unspecified right bundle-branch block; I77.810 Thoracic aortic ectasia; I10 Essential (primary) hypertension
CPT/HCPCS: 99214; G2211

== ENCOUNTER → 2024-12-29 09:13 | Outpatient (BNVA) | payer MEDICARE, SELFPAY | PROVIDERS: PCP Internal Medicine; Visit Provider Internal Medicine | DX: R07.2 Precordial pain (principal); I48.0 Paroxysmal atrial fibrillation; I45.10 Unspecified right bundle-branch block; I77.810 Thoracic aortic ectasia; I10 Essential (primary) hypertension; Z79.01 Long term (current) use of anticoagulants; Z79.899 Other long term (current) drug therapy | CPT/HCPCS: 99212 ==

== ENCOUNTER → 2025-01-20 08:17 | Outpatient (REF) | payer MEDICARE, SELFPAY ==
--- OUTSIDE RECORDS SUMMARY | 2023-09-10 03:30 | XMS_ITS ---
Author Organization [facility] Address [address] [place] [id number] Care Team Providers Care Performance Reporter Name Role Phone Jose De Dios Primary Care Provider Brooks Fall Unavailable [phone] REASON FOR VISIT screening,hx polyps,acute gastric uler w/o hemorrhage Problems Problem Type SNOMED Code ICD Code Onset Dates Problem Status W/U Status Risk Notes Problem Atrophic gastritis (03615442) Antral gastritis (K29.50) Active confirmed Encounters Encounter Location Date Provider Diagnosis [facility] Outpatient [address], [place] [id number] 09/10/2023 Brooks Barbour Encounter for scre ening colonoscopy Z12.11 ; Colon polyps K63.5 ; Hiatal hernia K44.9 and Antral gastritis K29.50 Assessments Encounter Date Diagnosis (ICD Code) Assessment Notes Treatment Notes Treatment Clinical Notes Section Notes 09/10/2023 Encounter for screening colonoscopy (ICD-10 - Z12.11) 09/10/2023 Colon polyps (ICD-10 - K63.5) 09/10/2023 Hiatal hernia (ICD-10 - K44.9) 09/10/2023 Antral gastritis (ICD-10 - K29.50) Plan Of Treatment Next Appt Details Provider Name:Brooks Barbour , 07/23/2025 09:00:00 AM, [address] [place] [address], [address], [place], [address], Progress Notes * CASEY RUIZ GDOB:1950 (74 yo M)Acc No.[id number]:09/10/2023 EGD and COL/MAC Patient: CASEY SCHRADER Provider: Aubrey Barbour MD :1950 A ge:72 Y S ex:Male Date:09/10/2023 Address:[address] [place] [address], [id number] Pcp:Jose De Dios Subjective: * Chief Complaints: * 1 . Screening,hx polyps,acute gastric uler w/o hemorrhage. * Medical History: Objective: * Vitals: Assessment: * Assessment: 1. E ncounter for screening colonoscopy - Z12.11 (Primary) 2 . C olon polyps - K63.5 3 . H iatal hernia - K44.9 4 . A ntral gastritis - K29.50 Plan: * Treatment: * Procedure Codes: 4 5385 LESION REMOVAL COLONOSCOPY, Modifiers: PT , 0529F INTRVL 3+YRS PTS CLNSCP DOCD, Modifiers: 8P , 0528F RCMND FLW-UP 10 YRS DOCD, Modifiers: 8P , 41072 UPPR GI ENDOSCOPY, DIAGNOSIS * * The named appointment provid er may or may not be the originator of this progress note, and it is not deemed complete until electronically signed by the appointment provider. Sign off status: Pending * Provider: Aubrey Barbour MD Date: 0 09/10/2023 Generated for Jarad lopez/Christiano/Rejiitting on: 03/22/2024 08:21 AM EST
--- OUTSIDE RECORDS SUMMARY | 2025-01-15 23:59 | XMS_ITS | Continuity of Care Document ---
Author Organization [facility] Address [address] [place] [address]- Care Team Providers Care Singing Teacher Name Role Phone Jose De Dios MD Primary Care Physician Encounter [facility] Date(s): 12/16/24 - 01/15/25 [facility] [address] [place] [address]- Encounter Type: Triage Allergies, Adverse Reactions, Alerts Substance Criticality Severity Reaction Reaction Severity Status Zoloft Active [place] Oil Active Medications apixaban 5 mg oral tablet 1 tablet = 5 mg, By Mouth, 2 times a day, # 60 tablet, 0 Refills, Maintenance, 06/06/20 5:20:00 AM EDT, Tablet, Partial fill upon patient request if the prescription is for a schedule II opioid drug. Start Date: 06/06/20 Status: Ordered Medication Dispense Status: Completed Quantity: 60.0 Unit: tablet Total Allowed Fills: 1 Fills Dispensed: 0 [place] 150 mcg buccal film 1 film = 150 mcg, By Mouth, Every 12 hours, place film on inside of cheek and avoid food or drink until completely dissolved. STOP TD buprenorphine., # 60 film, 0 Refills, Maintenance, 01/07/25 3:46:00 PM EDT Start Date: 01/07/25 Status: Ordered Medication Dispense Status: Completed Quantity: 60.0 Unit: film Total Allowed Fills: 1 Fills Dispensed: 0 Indications: Postlaminectomy syndrome, not elsewhere classified; buprenorphine 15 mcg/hr transdermal film, extended release 1 patch = 15 mcg, Topically, Every 7 days, # 4 patch, 2 Refills, Maintenance, 12/16/24 4:19:00 PM EDT, [id number], 1 patch Topically Every 7 days, 191, cm, 12/16/24 8:31:00 EDT, Height, 109.4, kg, 02/11/24 17:01:00 EST, Dry Weight Start Date: 12/16/24 Status: Ordered Medication Dispense Status: Completed Quantity: 4.0 Unit: patch Total Allowed Fills: 3 Fills Dispensed: 0 Indications: Postlaminectomy syndrome, not elsewhere classified; Controlled substance agreement Controlled substance agreement, See Instructions, # 1 each, Refills 0, Tot. Refills 0, Maintenance,controlled substance agreement signed 01/29/24, dx. Failed back syndrome, 01/29/24 2:56:00 PM EST, Supply, 185.6, cm, 01/29/24 7:36:00 EST, Height Start Date: 01/29/24 Status: Ordered Medication Dispense Status: Completed Quantity: 1.0 Unit: each Total Allowed Fills: 1 Fills Dispensed: 0 Diltiazem Hydrochloride ER 240 mg/24 hours oral capsule, extended release 1 capsule = 240 mg, By Mouth, Daily, Maintenance, 06/17/16 7:52:35 PM EDT, ER Capsule Start Date: 06/17/16 Status: Ordered Medication Dispense Status: Completed Total Allowed Fills: 1 Fills Dispensed: 0 finasteride 5 mg oral tablet 1 tablet = 5 mg, By Mouth, Every 48 hours, # 90 tablet, 0 Refills, Maintenance, 09/23/14 7:26:13 AM EDT, Tablet Start Date: 09/23/14 Status: Ordered Medication Dispense Status: Completed Quantity: 90.0 Unit: tablet Total Allowed Fills: 1 Fills Dispensed: 0 fluticasone 50 mcg/inh nasal spray 1 sprays = 50 mcg, Nares, Both, 2 times a day, Use as directed, # 16 Gm, 2 Refills, Maintenance, 12/16/24 4:03:00 PM EDT, [place], [facility] #[id number], 1 sprays Nares, Both 2 times a day,Instr:Use as directed, 191, cm, 12/16/24 8:31:00 EDT, Height, 109.4, kg, 02/11/24 17:01:00 EST, Dry Weight Start Date: 12/16/24 Status: Ordered Medication Dispense Status: Completed Quantity: 16.0 Unit: g Total Allowed Fills: 3 Fills Dispensed: 0 gabapentin 600 mg oral tablet See Instructions, 0.5 tab qam and 1 tab qhs, 0 Refills, Maintenance, 01/06/25 10:09:00 AM EDT, Partial fill upon patient request if the prescription is for a schedule II opioid drug. Start Date: 01/06/25 Status: Ordered Medication Dispense Status: Completed Total Allowed Fills: 1 Fills Dispensed: 0 lansoprazole 30 mg oral enteric coated capsule TAKE 1 CAPSULE BY MOUTH EVERY DAY Start Date: 01/11/23 Status: Ordered Medication Dispense Status: Completed Total Allowed Fills: 1 Fills Dispensed: 0 Magnesium Oxide = 400 mg, By Mouth, 0 Refills, Maintenance, 01/11/23 3:17:00 PM EDT, Partial fill upon patient request if the prescription is for a schedule II opioid drug. Start Date: 01/11/23 Status: Ordered Medication Dispense Status: Completed Total Allowed Fills: 1 Fills Dispensed: 0 MiraLax = 17 Gm, By Mouth, Daily, 0 Refills, Maintenance, 03/27/23 10:06:00 AM EST, Partial fill upon patient request if the prescription is for a schedule II opioid drug. Start Date: 03/27/23 Status: Ordered Medication Dispense Status: Completed Total Allowed Fills: 1 Fills Dispensed: 0 Narcan 4 mg/0.1 mL nasal spray See Instructions, 1 sprays Once use one spray in one nostril. if an additional dose is needed, alternate nostril may repeat every 2 to 3 minutes until patient responds, # 2 each, 0 Refills, Soft Stop, 01/29/24 9:17:00 AM EST, [facility]/pharmacy #[id number], Partial fill upon patient request if the prescriptionis for a schedule II opioid drug., 185.6, cm, 01/29/24 7:36:00 EST, Height Start Date: 01/29/24 Status: Ordered Medication Dispense Status: Completed Quantity: 2.0 Unit: each Total Allowed Fills: 1 Fills Dispensed: 0 oxyCODONE 5 mg oral tablet 5 mg, 1, tablet, By Mouth, 4 times a day, PRN breakthrough pain, # 84 tablet, Refills 0, Tot. Refills 0, Maintenance, 01/01/25 9:39:00 PM EDT, Route to Pharmacy Electronically, [facility] #[id number], Partial fill upon patient request, 191, cm, 12/16/24 8:31:00 EDT, Height, 109.4, kg, 02/10/2417:01:00 EST, Dry Weight Start Date: 01/01/25 Status: Ordered Medication Dispense Status: Completed Quantity: 84.0 Unit: tablet Total Allowed Fills: 1 Fills Dispensed: 0 Indications: Postlaminectomy syndrome, not elsewhere classified; tamsulosin 0.4 mg oral capsule 0.4 mg, 1, capsule, By Mouth, Daily at bedtime, Refills 0, Maintenance, 06/17/16 7:53:23 PM EDT Start Date: 06/17/16 Status: Ordered Medication Dispense Status: Completed Total Allowed Fills: 1 Fills Dispensed: 0 Problem List Condition Confirmation Course Effective Dates Status H ealth Status Informant Posture abnormality: lateral torso tilt to left & flat back Confirmed Active Neck pain, chronic Confirmed Active Decreased range of motion of neck Confirmed Active Decreased range of motion of lumbar spine Confirmed Active Hypertension, essential Confirmed Active Limitation due to disability 1, 2 Confirmed Active Neuropathic pain of feet, in setting of peripheral sensory neuropathy/prob. small fiber neuropathy Confirmed Active Gastroesophageal reflux disease - well controlled on PPI Confirmed Active History of inguinal hernia, right; s/p repair Confirmed Active History of atrial fibrillation Confirmed Active History of left ankle fracture: trimalleolar 2000 Confirmed 2000 Active Status post lumbar surgery 1993 Confirmed 1993 Active Status post lumbar surgery 06/2015 decompression 3 Confirmed 06/2015 Active Status post lumbar surgery 05/2016 4 Confirmed 05/2016 Active Status post lumbar surgery 04/2020 Confirmed 04/2020 Active Status post right inguinal hernia repair Confirmed Active Status post revision of total replacement of left knee joint 11/2013 Confirmed 11/2013 Active Status post total knee replacement, left Confirmed 07/2011 Active Status post total knee replacement, right Confirmed 10/2011 Active Proprioception absent great toe both feet Confirmed Active Irritant contact dermatitis due to drug (buprenorphine patch) Confirmed Active Lack of drug effect: memantine 5 Confirmed Active Prostatic hypertrophy Confirmed Active Failed back syndrome, lumbosacral Confirmed Active Mechanical low back pain Confirmed Active Meralgia paresthetica, left lower limb Confirmed Active Adverse effect of opioid: morphine 6 Confirmed Active History of myalgias due to statins Confirmed Active Myofascial pain, regional Confirmed Active Lack of adequate sleep Confirmed Active Knee pain, left Confirmed Active Risk assessment: SOAPP-R 7 Confirmed Active Heart murmur, systolic Confirmed Active Pes planus, bilateral, left>right Confirmed Active Thoracic back pain Confirmed Active 1Updated Oswestry Disability Index: 42% ( severe disability ); Updated [facility] Back Pain Disability Scale score: 29 both on 03/06/24 2Initial Oswestry Disability Index: 42% ( severe disability ); initial [facility] Back Pain Disability Scale score: 28; initial Neck Disability Index: 15 (30%); all on 01/11/23 3On 06/25/15 underwent L5-S1 bilateral decompression for L5-S1 stenosis by Jamison Cro[facility] MD at [facility] 4Underwent surgery 05/12/2016 at [facility] by Dr. [place]-> T11 to pelvis fusion; removal of segmental spinal implants; exploration of fusion mass L4-S1 with laminectomy L3-L4. 5Memantine trialed ->05/2023 up to a dose of 20mg/day - no pn reduct'n; retrialed 01/09->03/06/24 to dose of 30mg/day: no pn reduct'n - but ? balance problems. Trial abandoned. 6I.r. morphine prescribed 01/29/24. At one 15 mg tab/dose, experienced 50+% pn reduct'n within an hour->lasted 5 hours. However, assoc'd w floaty feeling - not somnolence, not dizzy; worse w position chg; unable to tolerate meclizine (assoc'd w somnolence). Tx d/c'd 02/18/24. 7SOAPP-R: 6 (all on page 1) on 01/11/2023 Social History Social History Type Response Smoking Status Former smoker entered on: 09/23/14 Sex Sex Representation Male (finding) Patient Care team information Care Team Personnel Name: Jose De Dios MD Position: [facility] Physician - Primary Care Member Role: PCP [address]: [address] [place] [address]- Telecom: Name: Sheree Jim RN Position: S RN Member Role: Primary Care Nurse Name: Sampson Palacios RN Position: [facility] RN Member Role: Primary Care Nurse Care Team Related Persons Name: AILYN RUIZ Insurance Providers Guarantor name: CASEY RUIZ [employer] Plan Information #: 1 Payer: MEDICARE B Payer Identifier: SOURAV Member Number: [id number] Group Number: NA Subscriber Identifier: NA Relationship to Subscriber: self Coverage Type: NA Coverage Verification Date: NA Telecom: NA Address: NA [facility] Information #: 2 Payer: MEDEX SECONDARY ONLY Payer Identifier: SOURAV Member Number: [id number] Group Number: [id number] Subscriber Identifier: NA Relationship to Subscriber: self Coverage Type: Medicare Other Coverage Verification Date: NA Telecom: NA Address: NA
--- NOTE | ~2025-01-20 | NM_ITS ---
Lexiscan Myocardial perfusion study Indication: Precordial chest pain to evaluate for myocardial ischemia Technique: The patient was brought in for a Lexiscan perfusion study on 01/20/2025 and was injected 0.4 mg of Lexiscan intravenously. Within a minute of this injection 35 mCi of sestamibi was given intravenously. Images were obtained using the SPECT gamma camera interlaced with the gating device. Images were obtained in supine position. Resting perfusion study was performed on 01/21/2025. Patient was administered 35 mCi of sestamibi intravenously at rest. Images were then obtained in supine position. Images were processed with the software and compared side to side in short axis, horizontal long axis and vertical long axis views. Images obtained without without CT attenuation. Total DLP 178 mGy-cm. Findings: The stress perfusion study showed nonattenuated images show moderately to severely reduced uptake in the inferior, inferolateral as well as mildly reduced uptake in the apex of the LV myocardium. Attenuated corrected images show severely reduced uptake in the apex of the LV myocardium. The gated study shows normal LV systolic function with calculated LVEF of 65%. LV cavity is mildly dilated in size. The gated study shows normal systolic wall thickening and contraction of segments. Resting study shows no change in perfusion pattern compared to stress perfusion study. Gating at rest reveals normal systolic wall motion with ejection fraction at 59%. The findings are consistent with fixed apical defect with normal wall motion. This could represent attenuation artifact. Although small area of nontransmural infarct cannot be ruled out. NM/NM cardiolite stress test Impression: 1. Myocardial perfusion imaging study shows fixed apical defect which could represent nontransmural infarct.Normal wall motion noted and therefore also possible to have attenuation artifact there is no evidence of ischemia 2. Gated LVEF is 65% 3. Transient ischemic dilatation not present Nondiagnostic changes on EKG. Electronically signed by: Husam Eldridge MD 01/22/2025 03:37 PM [facility]
--- NOTE | 2025-01-20 08:19 | CA_ITS ---
Acquisition Time: 2025-01-20 08:21:20 Total Exercise Time: 00:02:00 Test Indications: CHEST PAIN Medications: Protocol: LEXISCAN Max HR: 98 BPM 67% of Pred: 146 BPM Max BP: 116/70 mmHG Max Work Load: 1.0 METS Pharmacological stress test with Leixscan while pt marches in chair, with reports of SOB, with frequent PACs, with normotensive response to injection. Nondiagnostic EKG for ischemia. In recovery, pt treated with IVP Aminophylline 75 mg to reverse Lexiscan after which pt feeling back to baseline. Nuclear images pending. Test reviewed with Dr. Eldridge. Referred By: Kyler Mata Electronically Signed By: Sal Linder
--- OUTSIDE RECORDS SUMMARY | 2025-01-20 08:21 | XMS_ITS | Patient Health Record ---
[facility] Address [address] [place] [address] Care Team Providers Care Caustic Preparer Name Role Phone Jose De Dios MD Primary Care Provider Galo desai Rebekah Dumont Unavailable [phone] Wyman Viri Unavailable [phone] Allergies Allergen (clinical drug ingredient) Drug/Non Drug [...] Derivatives fatigue Drug Allergy Active Substance with 3-dqglojy-1-methylglu taryl-coenzyme A reductase inhibitor mechanism of action (substance) Statins myalgia Drug Allergy Active Reason For Referral No Information Medications Medication SIG (Take, Route, Frequency, Duration) Notes Start Date End Date Status Pregabalin 50 MG 1 capsule in the [...] 500 MG 1 capsule Orally every 12 hours; Duration: 10 days Not-Taking Magnesium 400 MG as directed Orally Active Chlorzoxazone 500 MG Orally 4 times/ day Not-Taking Mens 50+ Multivitamin Active oxyCODONE-Acetaminophen 5-325 MG Orally every 6 hrs Not-Takin g oxyCODONE HCl 5 MG 1 tablet as needed Orally every 6 hrs Active dilTIAZem HCl 120 MG Orally Not-Taking Famotidine 40 MG as directed Orally Active Fish Oil 1000 MG 1 capsule Orally Onc e a day Not-Taking Baby Aspirin Not-Junior ing Tamsulosin HCl 0.4 MG Orally 1 Active MiraLax Active Augmentin 500-125 MG 1 tablet Orally Twi ce a day; Duration: 5 days 07/20/2023 Active Iron Active Benefiber Not-Taking Immunizations Vaccine Route Administration Date Status Comme nts Influenza Unknown 11/14/2023 Administered Social History Tobacco Use: Social History Observation Description Date Details (start date - stop date) Never Smoker NA - NA Tobacco use other than smoking: Question Answer Notes Are you an other tobacco user? No Tobacco Control (Standard) Question Answer Notes Tobacco use: Nonsmoker Additional Findings: Tobacco non-user Current no nsmoker AUDIT-C (Standard) Question Answer Notes Did you have a drink containing alcohol in the p ast year? No Points 0 Interpretation Negative Problems Problem Type SNOMED Code ICD Code Onset Dates Problem Status W/U Status Risk Notes Problem Neuropathy (119817007) Neuropathy (G62.9) Active confirmed Problem Ulcer of toe of right foot (disorder) (6813725671060 9101) Skin ulcer of toe of right foot, limited to breakdown of skin (L97.511) Active confirmed Problem 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 confirmed Response to treatment Vital Signs Blood pressure diastolic 65 mm Hg 11/27/2024 Height 6ft3in in 11/27/2024 Blood pressure systolic 128 mm Hg 11/27/2024 Weight 230 lbs 11/27/2024 BMI 28.74 kg/m2 11/27/2024 Procedures Procedure Date Ordered Date Performed Result Body Sit e 76675-Wgzfuins Plate 11/27/2024 N/A 09155-Mozfditx Plate Each Additional 11/27/2024 N/A Encounters Encounter Location Date Provider Diagnosis [facility] [address] [place] [address] 11/27/2024 Viri Wyman Ingrown nail L60.0 Assessments Encounter Date Diagnosis (ICD Code) Assessment Notes Treatment Notes Treatment Clinical Notes Section Notes 11/27/2024 Ingrown nail (ICD-10 - L60.0) Plan Of Treatment Pending Test Test Name Order Date X ray : Foot, left 2V 12/08/2015 X ray : Foot, right 2V 12/08/2015 78858-Nktropue Plate 11/27/2024 77836-Vimuvnvs Plate Each Additional 73178- Debride <25 sq cm 10/05/2022 30179-Lorqnnx Benign Lesion 0.6-1.0 cm 0 09/21/2022 Insurance Providers Payer Name Payer Address Payer Phone Subscriber Number Group Number Insured Name Patient Relationship to Insured Coverage Start Date Coverage End Date Medicare National Govt [employer] [address] [place] [address] [id number] William Sanon Self - patient is the insured [facility] [employer] [address] [place] [address] [id number] William Sanon Self - patient is the insured Medical (General) History Medical History History ICD Code Anemia Arthritis Back,Hip,and Knee pain Broken bones Diverticulosis Joint implants/screws Hypertension Paralysis Poor circulation Sciatica Reflux Transfusions Pulmonary embolism Cancer Headaches/Migraines Numbness [place] Syndrome Paroxysmal atrial fibrillation Unliateral Inguinal Hernia, without obst ruction or gangrene Hypotension Benign prostatic hyperplasia (BPH) covid-19 Neuropathy Diverticulitis Fatty liver Hernia Surgical History Surgery Date(Month/Year) L/S surgery 1993 Broke left leg, rods and pins 2000 knee replacement, left 2011/2013 knee replacement, right 2012 back surgery lower back fusion 2017 belly button hernia 2018 full back fusion 04/2020 hernia 08/16/2022 Hospitalization History Reason Date(Month/Year) Positive for COVID-19 03/02/2022
--- OUTSIDE RECORDS SUMMARY | 2025-01-20 08:22 | XMS_ITS | Data Portability ---
Author Organization [facility], [facility] Address [address] [place] [address] Assessment No assessment recorded. Plan of Treatment [...] By Organization Details Last Modified Time 05/26/2016 [id number] PCPand cards f/u in 1-2 weeks Not available 05/27/2016 16:25:50 Reason for Referral None Reported. Medical Equipment None Reported. Allergies Allergen ID Allergen Name Allergen Category Reaction Reaction Severity Criticality Documentation Date Start Date Code Code System Note Provider Name and Address Organization Details Recorded Time 860816 Product containin g 3-hydroxy -3-methyl glutaryl- coenzyme A reductase inhibitor (product) medicatio n Not available Not available Not available 05/22/2016 72467 [id number] SNOMED Annie Galarza MD [address] [place] [address], [phone], [facility] 7 12:28:23 [id number] almond allergeni c extract food Not available Not available Not available 05/22/2016 45893 [id number] RxNorm Annie Galarza MD [address] [place] [address], [phone], [facility] 7 12:28:32 Vitals Date Recorded Body temperature Heart rate Systolic And Diastolic Provider Name and Address Organization Details Last Updated DateTime 05/22/2016 97 [degF] 76 /min 135/65 mm[Hg] Annie Galarza MD [address] [place] [address], [phone] 05/22/2016 12:27:08 Date Recorded Body temperature Systolic And Diastolic Provider Name and Address Organization Details Last Updated DateTime 05/24/2016 97 [degF] 133/64 mm[Hg] Annie Galarza MD [address] [place] [address], [phone], [facility] 05/24/2016 15:33:47 Date Recorded Body temperature Heart rate Systolic And Diastolic Provider Name and Address Organization Details Last Updated DateTime 05/26/2016 97 [degF] 62 /min 131/52 mm[Hg] Annie Galarza MD [address] [place] [address], [phone], [facility] 05/27/2016 16:22:01 Social History Question Answer Notes LastModified by Organizat ion Details LastModified Time Tobacco Smoking Status Never Smoker Annie Galarza MD [address] [place] [address], [phone], [facility] - [facility] 05/22/2016 12:28:51 How Much Tobacco Do You Smoke? No Information not available 05/22/2016 Sex: Unknown Functional Status None recorded. Mental Status None recorded. Family History Nothing Reported. Medical History No medical history recorded. Past Encounters Encounter ID Performer Location Encounter Start Date Encounter Closed Date Diagnosis/Indication Diagnosis SNOMED-CT Code Diagnosis ICD10 Code Diagnosis IMO Codes Diagnosis Note [id number] Annie Galarza MD [facility] [address] [facility] [place] [address] 05/22/2016 12:01:25 05/23/2016 08:14:01 Spinal stenosis of lumbar region 83312621 M48.06 post op, on oxycontine -rx for oxycontine 30 mg po q12hrs 60 tabs is given,cont diluadid, tylenol,ne urontine, cont valium prnfor spasms Essential hypertension 61563661 I10 cont cardizem,m etoprolol- hypotensio n resolved Atrial flutter 7919708 I 48.92 will start on apixaban today , cards f/u Benign pro static hyperplasia without outflow obstruction 978549964 N40.0 cont tamsulosin ,flomax Gastroesop hageal reflux disease without esophagitis 057901803 K21.9 cont ppi [id number] Annie Galarza MD [facility] [address] [place] [address] 05/24/2016 15:04:05 05/29/2016 08:32:49 Spinal stenosis of lumbar region 62399089 M48.06 post op, on oxycontine - 30 mg q12, wasnot reduced , rx was replaced with 30 mg one tabs instead of 3 tabs of 10 mg, patient has dilaudid prn order that he did not utilized - instructed to ask for it and take before PT/OT [id number] Annie Galarza MD [facility] [address] [place] [address] 05/26/2016 11:26:10 05/29/2016 08:36:38 Spinal stenosis of lumbar region 43006917 M48.06 doing well, will go home with dilaudid 74tabs- no Rx given, valium 12 tabs of 5 mg and rx for 20 tabs, oxycontine 6 tabs and RX 20 tabs Essential hypertension 18958597 I10 cont cardizem,m etoprolol- hypotensio n resolved. RX for dilatiazem is given, cards f/u Atrial flutter 4621655 I 48.92 cont apixaban , rx given Benign pro static hyperplasia without outflow obstruction 791061042 N40.0 cont tamsulosin ,flomax Gastroesop hageal reflux disease without esophagitis 179260799 K21.9 cont ppi Health Concerns Section Related Observation LastModified by Organization Detai ls LastModified Time None Recorded Concern Status LastModified by Organization Details LastModified Time None Recorded Advance Directives Directive None Recorded Payers Insurance Date Sequence Insurance Name Policy Number Policy Love Covered Member ID Love Member ID Guarantor Name 06/10/2016 2 [place]) [id number] William Sanon [id number] William Sanon 05/23/2016 1 [place] [facility] William Sanon [id number] William Sanon Notes Date Note Type Note Provider Name and Address Organization Details Recorded Time 05/22/2016 text/html seen for admission to - came from [facility] where pt had T11 to pelvic fusion, laminectomy L3-4. Post op pt had atrial flatter and was startedon cardiazem and on toprol, pt will start apixaban on POD 10. Post opp ptwasdehydrated and treated with IV fluids,had decrease in Na to 131- all improved.Pt cameto for further care Annie Galarza MD [address] [place] [address], [phone], [facility] 05/22/2016 12:43:09 05/24/2016 text/html ROS as noted in the HPI asked to see by patient - stated his post op back pain isnot controlled and his oxycontine was decreased. [place], [phone], [facility] - [facility] 05/27/2016 16:21:25 05/26/2016 text/html seen for d/c - came from [facility] where pt had T11 to pelvic fusion, [...] be going home am Annie Galarza MD [address] [place] [address], [phone], [facility] - [facility] 05/27/2016 16:26:30
--- OUTSIDE RECORDS SUMMARY | 2025-01-20 08:22 | XMS_ITS | Patient Health Record ---
Author Organization [facility] Address [address] [place] [address] Care Team Providers Care Puppy Sitter Name Role Phone Jose De Dios Primary Care Provider Brooks Fall Unavailable [phone] Allergies Allergen (clinical drug ingredient) Drug/Non Drug Allergy documented on EMR Reaction Allergy Type Onset Date Status sertraline Sertraline Unknown Drug Allergy Activ e Reason For Referral No Information Medications Medication SIG (Take, Route, Fr equency, Duration) Notes Start Date End Date Status Lansoprazole 30 MG 1 Orally Twice a day ; Duration: 30 day(s) 02/12/2023 Active Gabapentin 300 MG Oral; Duration: 90 Active dilTIAZem HCl ER 240 MG 1 capsule on an empty stomach in the morning Orally Once a day Active oxyCODONE HCl 5 MG (Schedule II Drug) T SUZIE 1 TO 2 TABLETS EVERY 4 HOURS NEEDED FOR PAIN Oral; Duration: 3 Active Tamsulosin HCl 0.4 MG 1 capsule Orally Once a day Active Eliquis 5 MG 1 tablet Orally Twic e a day; Duration: 30 day(s) Active Finasteride 5 MG 1 tablet Orally Once a day Active MiraLax 17 GM/SCOOP 1 scoop mixed with 8 ounces of fluid Orally Once a day; Duration: 30 day(s) prn Active Magnesium 400 MG as directed Orally Active Buprenorphine 10 MCG/HR APPLY 1 PATCH TO PICALLY TO THE SKIN EVERY 7 DAYS Transdermal; Duration: 28 Days Active Social History Tobacco Use: Social History [...] Status Risk Notes Problem Colon cancer screening (953170305) Colon cancer screening (Z12.11) Active confirmed Problem Epigastric pain (97370475) Epigastric abdominal pain (R10.13) Active confirmed Problem Epigastric pain (18444118) Epigastric pain (R10.13) Active confirmed Problem Screening for malignant neoplasm of colon (275594029) Encounter for screening for malignant neoplasm of colon (Z12.11) Active confirmed Problem Acute gastric ulcer without hemorrhage, without perforation AND without obstruction (77320393) Acute gastric ulcer without hemorrhage or perforation (K25.3) Active confirmed Problem Right lower quadrant pain (562443839) Abdominal pain, bilateral lower quadrant (R10.31) Active confirmed Problem Iron deficiency anemia (36084769) Iron deficiency anemia (D50.9) Active confirmed Problem Gastroesophageal reflux disease without esophagitis (291174365) Gastroesophageal reflux disease without esophagitis (K21.9) Active confirmed Problem Iron deficiency anemia due to chronic blood loss (217385575) Iron deficiency anemia due to chronic blood loss (D50.0) Active confirmed Problem Pancreatic cyst (45932737) Pancreatic cyst (K86.2) Active confirmed Problem Iron deficiency anemia (42468605) Iron deficiency anemia, unspecified iron deficiency anemia type (D50.9) Active confirmed Problem History of adenomatous polyp of colon (835585028) Hx of adenomatous colonic polyps (Z86.010) Active confirmed Problem Gastric ulcer (240438344) Gastric ulcer (K25.9) Active confirmed Problem Ultrasonography of abdomen abnormal (24413534504158065) Abnormal ultrasound of abdomen (R93.5) Active confirmed Problem 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 abnormality (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.3) Active confirmed Problem Atrophic gastritis (38080674) Antral gastritis (K29.50) Active confirmed Vital Signs Blood pressure diastolic 77 mm Hg 07/22/2024 Height 75 in 07/22/2024 Blood pressure systolic 111 mm Hg 07/22/2024 Weight 253 lbs 07/22/2024 BMI 31.62 kg/m2 07/22/2024 Encounters Encounter Location Date Provider Diagnosis [facility] [address] [place] [address] 01/22/2024 Brooks Barbour Gastroesophageal ref lux disease without esophagitis K21.9 ; Epigastric abdominal pain R10.13 ; Gastric ulcer K25.9 and Abdominal pain, bilateral lower quadrant R10.31 [facility] [address] [place] [address] 07/22/2024 Brooks Barbour Gastroesophageal ref lux disease without esophagitis K21.9 and Pancreatic cyst K86.2 [facility] [address] [place] [address] 07/22/2024 Brooks Barbour Assessments Encounter Date Diagnosis (ICD Code) Assessment Notes Treatment Notes Treatment Clinical Notes Section Notes 01/22/2024 Epigastric abdominal pain (ICD-10 - R10.13) [...] or at least see you or his camera mechanic for evaluation. At this point, given his [...] or at least see you or his camera mechanic for evaluation. At this point, given his [...] to keep you advised of his progress. 07/22/2024 Gastroesophageal reflux disease without esophagitis (ICD-10 - K21.9) Overall, Reshma appears well and is not having any new or worrisome GI complaints. I did advise him to continue his daily lansoprazole as that seems to be working well for him at this time. We did review that he will be due for a follow-up colonoscopy for further screening in 2028. I do not think he needs any particular intervention on my part from a GI standpoint at this time. In regard to the known pancreatic cyst I shall obtain a copy of the 2024 MRI just to be sure it was done and things are stable. If things remain well I will plan to see him in 1 year for a follow-up office visit. I did advise him to certainly call in the interim if he has any problems or questions I can be of assistance with. Reshma and his are comfortable with this plan. Thank you again for allowing me to participate in Reshma's care. I shall continue to keep you [...] or at least see you or his camera mechanic for evaluation. At this point, given his [...] to keep you advised of his progress. 07/22/2024 Pancreatic cyst (ICD-10 - K86.2) Need MRI of pancreas from 2024 at [facility] Overall, Reshma appears well and is not having any new or worrisome GI complaints. I did advise him to continue his daily lansoprazole as that seems to be working well for him at this time. We did review that he will be due for a follow-up colonoscopy for further screening in 2028. I do not think he needs any particular intervention on my part from a GI standpoint at this time. In regard to the known pancreatic cyst I shall obtain a copy of the 2024 MRI just to be sure it was done and things are stable. If things remain well I will plan to see him in 1 year for a follow-up office visit. I did advise him to certainly call in the interim if he has any problems or questions I can be of assistance with. Reshma and his are comfortable with this plan. Thank you again for allowing me to participate in Reshma's care. I shall continue to keep you [...] or at least see you or his camera mechanic for evaluation. At this point, given his [...] COLONOSCOPY 06/05/2023 Next Appt Details Provider Name:Brooks Barbour , 07/23/2025 09:00:00 AM, [address], [address], [place], [address], Insurance Providers Payer Name Payer Address Payer Phone Subscriber Number Group Number Insured Name Patient Relationship to Insured Coverage Start Date Coverage End Date MEDICARE OF [place] [address] [place] [address] [id number] CASEY SANON Self - patient is the insured MED[employer] ATTN CLAIMS [address] [place] [address] [phone] [id number] RESHMA SANONALD Self - patient is the insured Medical (General) History Medical History History ICD Code Denies CT,DM,CVA,Lung disease,renal dise ase GERD-EGD in 1999--tiny area [...] Chronic back pain Iron deficiency anemia in e fall--upper endoscopy in February of 2023 revealed a gastric antral ulcer. Biopsies were negative for H. pylori and were otherwise benign. He had been taking NSAIDs at that time in addition to his Eliquis 1.6 cm pancreatic cyst seen on ultrasound in February of 2023 and MRI in March of 2023. He saw Dr. Ocampo [facility] GI department who did not think [...] that were removed Surgical History Surgery Date(Month/Year) Broken left leg with pins 2000 Hernia repair--umbilical-Dr. Hansen 2017 Back fusion surgery Left knee taken out due to infection and replaced 2013 Left knee replacement 2011 Right knee replacement 2011 Hospitalization History Reason Date(Month/Year) As above
--- OUTSIDE RECORDS SUMMARY | 2025-01-20 08:22 | XMS_ITS | Encounter Summary ---
Author Organization [facility] Address [address] [place] [address] Care Team Providers Care Cement Railroad Car Loader Name Role Phone Mayito Glen Les Primary Care Provider [phone] Reason for Referral * ADVANCED IMAGING (Routine) - Closed Specialty Diagnoses / Procedures Referred By Contac t Referred To Contact Radiology Diagnoses S/P lumbar fusion Procedures MRI Cervical Spine WO Contrast Aron Brown MD [address] [place] [address] Phone: tel: fax: Referral ID Status Reason Start Date Expiration Date Visits Re quested Visits Authorized [id number] Closed 04/07/2024 07/01/2025 1 1 Encounter Details Date Type Department Care Team (Late st Contact Info) Description 04/04/2024 [facility] Aron Brown MD [address] [place] [id number] S/P lumbar fusion (Primary Dx) Social History Tobacco Use Types Packs/Day Years Used Date Smoking Tobacco: Never Assessed Sex and Gender Information Value Date Recorded Sex Assigned at Male 08/12/2023 4:02 PM EDT Legal Sex Male 11:15 PM EST Gender Identity Male 08/12/2023 4:02 PM EDT Sexual Orientation Not on file documented as of this encounter Plan of Treatment Not on file documented as of this encounter Results * MRI Cervical Spine WO Contrast (04/09/2024 1:55 PM EST) Anatomical Region Laterality Modality Cervical Spine Magnetic Resonan ce 04/09/2024 1:58 PM EST Impressions 04/09/2024 2:05 PM EST Spondylotic findings as described above that are unchanged compared to the prior examination. Narrative 04/09/2024 2:05 PM EST TECHNIQUE: Multiplanar T1 and T2-weighted imaging of the cervical spine. INDICATION: Neck and arm pain COMPARISON: MRI cervical spine 02/10/2022 FINDINGS: The cervical spinal cord demonstrates uniform appearing signal without evidence of intramedullary expansion. Throughout the cervical spine, diffuse degenerative disc changes are present with very degrees of disc desiccation. C2-3: Left uncovertebral and facet osteoarthritic changes are present with moderate left foraminal stenosis. The central canal and right neural foramen are patent. C3-4: Mild facet osteoarthritic changes are present. The central canal and neural foramen are patent. C4-5: Broad-based disc bulging is present. There is borderline central canal stenosis present. Bilateral facet and uncovertebral osteoarthritic changes are present with severe right foraminal stenosis. The left neural foramen is patent. C5-6: There is a broad-based central disc osteophyte complex present with moderate central canal stenosis. Bilateral uncovertebral and facet osteoarthritic changes are present with severe narrowing of both neural foramen. C6-7: Broad-based disc bulging is present with borderline central canal stenosis. Bilateral uncovertebral osteoarthritic changes are present with severe narrowing of the left and moderate narrowing of the right neural foramen. C7-T1: Bilateral facet osteoarthritic changes are present. There is mild narrowing of the neural foramen. The central canal is patent. Overall, compared to the prior examination, there has been no interval change. Procedure Note Faisal Booker MD - 04/09/2024 TECHNIQUE: Multiplanar T1 and T2-weighted imaging of the cervical spine. INDICATION: Neck and arm pain COMPARISON: MRI cervical spine 02/10/2022 FINDINGS: The cervical spinal cord demonstrates uniform appearing signal without evidence of intramedullary expansion. Throughout the cervical spine, diffuse degenerative disc changes are present with very degrees of disc desiccation. C2-3: Left uncovertebral and facet osteoarthritic changes are present with moderate left foraminal stenosis. The central canal and right neural foramen are patent. C3-4: Mild facet osteoarthritic changes are present. The central canal and neural foramen are patent. C4-5: Broad-based disc bulging is present. There is borderline central canal stenosis present. Bilateral facet and uncovertebral osteoarthritic changes are present with severe right foraminal stenosis. The left neural foramen is patent. C5-6: There is a broad-based central disc osteophyte complex present with moderate central canal stenosis. Bilateral uncovertebral and facet osteoarthritic changes are present with severe narrowing of both neural foramen. C6-7: Broad-based disc bulging is present with borderline central canal stenosis. Bilateral uncovertebral osteoarthritic changes are present with severe narrowing of the left and moderate narrowing of the right neural foramen. C7-T1: Bilateral facet osteoarthritic changes are present. There is mild narrowing of the neural foramen. The central canal is patent. Overall, compared to the prior examination, there has been no interval change. IMPRESSION: Spondylotic findings as described above that are unchanged compared to the prior examination. Aron Brown MD IMG MRI ORDERABLES Final Result documented in this encounter Visit Diagnoses Diagnosis S/P lumbar fusion- Primary Arthrodesis status S/P lumbar fusion Arthrodesis status documented in this encounter Care Teams Cement [employer] Car Loader Relationship Specialty Start Date End Date [place] [address] [place] [id number] PCP - General Internal Medicine 08/13/23 documented as of this encounter
--- OUTSIDE RECORDS SUMMARY | 2025-01-20 08:22 | XMS_ITS | Clinical Summary ---
Author Organization [facility] Address [address] [place] [id number] Care Team Providers Care Edge Burnisher Name Role Phone Ed[place], Glen Les Primary Care Provider [phone] Allergies Active Allergy Reactions Criticality Noted Date Comments [place] Other (See Comments) 05/04/2016 Ingredients: almond; Type: Drug; Other Reaction(s): THROAT CLOSE Vuoxzrp-Umu-Xgh Reductase Inhibitors Other (See Comments) 05/12/2016 Severity: Mild; Type: Drug; Other Reaction(s): MUSCLE CRAMPS Medications acetaminophen (TYLENOL) 325 MG tablet Take 2 tablets (650 mg total) by mouth every 6 hours. Active apixaban (ELIQUIS) 5 mg Tab Take 1 tablet (5 mg total) by mouth every morning & every evening. Active dilTIAZem (CARDIZEM CD) 120 MG 24 hr capsule Take 1 capsule (120 mg total) by mouth daily. Active gabapentin (NEURONTIN) 600 MG tablet Take 1 tablet (600 mg total) by mouth at bedtime. Active gabapentin (NEURONTIN) 600 MG tablet Take 0.5 tablets (300 mg total) by mouth daily. Active heparin sodium,porcine (heparin, porcine,) 5,000 unit/mL injection Inject 1 mL (5,000 Units total) under the skin every 8 hours. Active lansoprazole (PREVACID) 30 MG capsule Take 1 capsule (30 mg total) by mouth daily. Active methocarbamoL (ROBAXIN) 500 MG tablet Take 2 tablets (1,000 mg total) by mouth every 6 hours as needed. Active multivitamin with folic acid (ONE DAILY) 400 mcg Tab tablet Take 1 tablet by mouth daily. Active oxyCODONE (ROXICODONE) 5 MG immediate release tablet Take 1-2 tablets (5-10 mg total) by mouth every 4 hours as needed. Active tamsulosin (FLOMAX) 0.4 mg cap 24 hr capsule Take 1 capsule (0.4 mg total) by mouth at bedtime. 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 Status post lumbar spinal fusion 04/14/2020 Atrial fibrillation 04/02/2020 Constipation 04/02/2020 Migraine 04/02/2020 Sleep apnea 04/02/2020 Lumbar spine scoliosis 05/17/2016 Benign essential hypertension 05/04/2016 Diverticulitis of small intestine 05/04/2016 Esophageal reflux 05/04/2016 Osteoarthrosis 05/04/2016 Osteomyelitis 05/04/2016 Prostatitis 05/04/2016 Right bundle branch block 05/04/2016 Benign prostatic hyperplasia 05/04/2016 Hyperlipidemia 05/04/2016 Spinal stenosis 05/04/2016 Steatosis of liver 05/04/2016 Pulmonary embolism 05/04/2016 Ventricular premature complex 05/04/2016 Social History Tobacco Use Types Packs/Day Years Used Date Smoking Tobacco: Never Assessed Sex and Gender Information Value Date Recorded Sex Assigned at Male 08/12/2023 4:02 PM EDT Legal Sex Male 11:15 PM EST Gender Identity Male 08/12/2023 4:02 PM EDT Sexual Orientation Not on file Last Filed Vital Signs Vital Sign Reading Time Taken Comments Blood Pressure - - Pulse - - Temperature - - Respiratory Rate - - Oxygen Saturation - - Inhaled Oxygen Concentration - - Weight 111 kg (245 lb) 04/20/2020 9:48 AM EST Height 186.7 cm (6' 1.5 ) 04/20/2020 9:48 AM EST Body Mass Index 31.89 04/20/2020 9:48 AM EST Plan of Treatment Health Maintenance Due Date Last Done Comments Blood Pressure 1950 Lipid Panel 1950 Depression Screening 1954 Hepatitis C Screening 1968 DTaP,Tdap,and Td Vaccines (1 - Tdap) 1969 CT Colonography 12/25/1995 Colonoscopy 12/25/1995 Colorectal Cancer Screening 12/25/1995 FIT 12/25/1995 FOBT 12/25/1995 Multitarget Stool DNA (Cologuard) 12/25/1995 Sigmoidoscopy 12/25/1995 Zoster Vaccine (1 of 2) 2000 Medicare Initial AWV [id number] 12/10/2016 COVID-19 Vaccine ( season) 2024 12/20/2023, 01/06/2023, 01/12/2022, Additional history exists Influenza Vaccine (#1) 2024 , 01/06/2023, 01/12/2022, Additional history exists Pneumococcal Vaccine: 50+ Years Completed 02/12/2018, 02/08/2017 Meningococcal B Vaccines Aged Out No longer eligible based on patient's age to complete this topic Meningococcal Vaccines Aged Out No lo nger eligible based on patient's age to complete this topic Insurance [employer] MEDICARE [employer] MEDICARE Advance Directives Documents on File Type Date Recorded Patient Product Handler Expl anation Health Care Proxy 04/14/2020 5:26 AM Health care Proxy - External Health Care Proxy 04/02/2020 8:12 AM Healt hcare Proxy - External Care Teams Edge Burnisher Relationship Specialty Start Date End Date [place] [facility] [address] [address] PCP - General Internal Medicine 08/13/23
== END ==
LOC: HO.CARD 08:17
PROVIDERS: PCP Internal Medicine; Visit Provider Internal Medicine
DX: R07.2 Precordial pain (principal); I20.9 Angina pectoris, unspecified
CPT/HCPCS: 78452; 93017; A9500; J0280; J2785

== ENCOUNTER → 2025-01-20 08:19 | Outpatient (BNV) | payer MEDICARE, SELFPAY | PROVIDERS: PCP Internal Medicine | DX: I49.1 Atrial premature depolarization (principal); R06.02 Shortness of breath | CPT/HCPCS: 78452; 93016; 93018 ==